=== PATIENT | male | born 1950 | race Caucasian/White ===

== ENCOUNTER 2020-09-05 01:57 | Inpatient (IN) | payer MEDICARE, OTHER, SELFPAY ==
[2020-09-05] VITALS (148 sets, daily range): BP systolic 115–146; BP diastolic 65–93; PULSE 69–173; RESP 12–49; TEMP 36.6–37.1; O2SAT 80–99; BMI 28.5
--- NOTE | 2020-09-05 02:13 | ECG_ITS ---
[facility] Test Date: 2020-09-05 Pat Name: Alisa Hyatt Department: Room: 208 Gender: Male Dispute Specialist: : 1950 Requested By: Aftab Rhoades Order Number: [id number] Mary Kate MD: Leighann Saba M.D. Measurements Intervals [place] Rate: 71 P: 28 NE: 181 QRS: -20 QRSD: 97 T: 61 QT: 381 QTc: 414 Interpretive Statements SINUS RHYTHM No previous ECG available for comparison Electronically Signed On 09-05-2020 22:12:47 GOLF SUPERINTENDENT by Leighann Saba M.D. [id number]
--- NOTE | 2020-09-05 02:13 | XR_ITS ---
WS: [id number] Exam: XR chest 1V portable [id number] Date/Time of Exam: 09/05/2020 2:15 AM Reason For Exam: sob Comparison 11/27/2008. Extensive airspace and interstitial infiltrates noted throughout both lungs. Normal cardiomediastinal structures. No pleural effusions or pneumothorax. Regional bony structures are intact. XR/XR chest 1V portable [id number] IMPRESSION: 1. Extensive bilateral pneumonia.
--- NOTE | 2020-09-05 02:16 | ED_ITS ---
HPI - COVID General: Chief Complaint: COVID symptoms Stated Complaint: SOB X 2 DAYS Time Seen by Provider: 09/05/20 02:08 Source: patient and EMS Mode of arrival: EMS Limitations: no limitations Triage information: Has fever, cough or shortness of breath . Exposure to COVID + person last 14 days History of Present Illness: HPI Narrative: 70-year-old male who states he tested positive for Covid 12 days ago. He states that he has had increasing cough along with shortness of breath. Patient called EMS and patient was 85% on room air and is currently requiring 4 L. He states he is having some chest wall pain from coughing. He denies any fevers. He states he had a slight hiccup as well. Denies any vomiting. Denies any worsening improving factors. COVID 19 common symptoms: positive productive cough and dyspnea; negative fever(s), chills, body aches, headache(s), throat pain, nausea, vomiting or diarrhea COVID 19 other sytmptoms: negative chest pain COVID Results: No Data to Display Review of Systems Const: Denies: fever(s), chills, body aches or change in appetite Eyes: Denies: blurry vision or eye discomfort ENMT: Denies: throat pain or dental pain Card: Denies: chest pain Resp: Reports: dyspnea and productive cough GI: Denies: abdominal pain, nausea, vomiting or diarrhea : Denies: dysuria Musc: Denies: neck pain or back pain Skin/Breast: Denies: rash Neuro: Denies: headache(s) Psych: Denies: depression Catarino/Lymph: Denies: easy bruising All/Imm: Denies: urticaria Physical Exam Const: COMMON NORMALS: no acute distress, patient oriented x3 and healthy appearing HENMT: COMMON NORMALS: normocephalic and atraumatic HEAD & SCALP: normocephalic and atraumatic Eye: COMMON NORMALS: Equal, round and reactive pupils present and EOMs intact bilaterally PUPIL: Yes Equal, round and reactive pupils present Neck/C-Spine: COMMON NORMALS: full ROM and supple Chest: COMMONS NORMALS: normal inspection of the chest and normal palpation of entire chest wall Resp: COMMON NORMALS: normal respiratory effort, No retractions and No use of accessory muscles AUSCULTATION: rales Cardio: COMMON NORMALS: regular rate, regular rhythm and No murmurs present (Cardio) RATE: regular rate RHYTHM: regular rhythm GI: COMMON NORMALS: Normal to inspection, nondistended, normoactive bowel sounds present, Soft to palpation, non-tender and no masses PALPATION: Yes Soft to palpation Extremity: COMMON NORMALS: normal to inspection and full ROM Neuro: COMMON NORMALS: patient oriented x3, moves all extremities and no focal motor deficits Psych: COMMON NORMALS: mental status grossly normal, Normal thought process present and cooperative THOUGHT PROCESS: Normal thought process present Skin: COMMON NORMALS: no rashes or lesions noted and no wounds GENERAL SKIN EXAM: no rashes or lesions noted Course 2 Vital Signs: Vital signs: Vital Signs Temperature 97.8 F 09/05/20 02:02 Pulse Rate 71 09/05/20 03:31 Respiratory Rate 28 H 09/05/20 03:31 Blood Pressure 115/72 09/05/20 03:31 Pulse Oximetry 94 09/05/20 03:31 MDM - COVID MDM Narrative: Medical decision making narrative: Patient presents here with COVID-19 pneumonia. X-ray shows a diffuse infiltrate. Patient is requiring oxygen here. Patient given Decadron and remdesivir down in the ER. Patient is also hyponatremic. I spoke to hospitalist and will admit to the viral ICU. Patient has been stable while in the ER. Lab Data: Labs: Lab Results 09/05/20 09/05/20 09/05/20 Range/Units 02:30 02:30 02:30 WBC 6.1 (4.0-10.0) 10^3/ uL RBC 4.35 (4.1-5.3) 10^6/u L Hgb 14.9 (11.7-16.6) g/dL Hct 40.5 L (42.0-52.0) % MCV 93.1 (80-94) fL MCH 34.3 H (28.0-34.0) pg MCHC 36.8 H (30.0-36.0) g/dL RDW 11.6 L (12.1-15.1) % Plt Count 114 L (130-400) 10^3/c mm MPV 11.6 H (7.4-10.4) fL Neut % (Auto) 87.9 % Lymph % (Auto) 7.4 % Foster % (Auto) 3.5 % Eos % (Auto) 0.3 % Baso % (Auto) 0.2 % Neut # (Auto) 5.35 (1.8-7.7) 10^3/u L Lymph # (Auto) 0.5 L (0.8-4.8) 10^3/u L Foster # (Auto) 0.2 (0.2-0.9) 10^3/u L Eos # (Auto) 0.0 (0.0-0.8) 10^3/u L Baso # (Auto) 0.0 (0.0-0.1) 10^3/u L Nucleated RBC % (a uto) 0 % Nucleated RBCs # 0.0 /100WBC D-Dimer Cancelled Specimen Type Sample Site ABG pH (7.35-7.45) ABG pCO2 (35-45) mmHg ABG pO2 (80.0-100.0) mmH g ABG HCO3 (22-26) mmol/L ABG Base Excess (-2.0-2.0) mmol/ L Dex Test Hematocrit (42-52) % O2 Delivery Device O2 Liters/Min % Cylindrical Mixer ID Sodium Cancelled Potassium Cancelled Chloride Cancelled Carbon Dioxide Cancelled Anion Gap Cancelled BUN Cancelled Creatinine Cancelled GFR Calculation Cancelled Glucose Cancelled Calculated Osmolal ity Cancelled Lactic Acid Calcium Cancelled Total Bilirubin Cancelled AST Cancelled ALT Cancelled Alkaline Phosphata se Cancelled C-Reactive Protein Cancelled NT-Pro-B Natriuret Pep Cancelled Total Protein Cancelled Albumin Cancelled Globulin Cancelled 09/05/20 09/05/20 09/05/20 Range/Units 02:30 02:43 02:43 WBC (4.0-10.0) 10^3/ uL RBC (4.1-5.3) 10^6/u L Hgb (11.7-16.6) g/dL Hct (42.0-52.0) % MCV (80-94) fL MCH (28.0-34.0) pg MCHC (30.0-36.0) g/dL RDW (12.1-15.1) % Plt Count (130-400) 10^3/c mm MPV (7.4-10.4) fL Neut % (Auto) % Lymph % (Auto) % Foster % (Auto) % Eos % (Auto) % Baso % (Auto) % Neut # (Auto) (1.8-7.7) 10^3/u L Lymph # (Auto) (0.8-4.8) 10^3/u L Foster # (Auto) (0.2-0.9) 10^3/u L Eos # (Auto) (0.0-0.8) 10^3/u L Baso # (Auto) (0.0-0.1) 10^3/u L Nucleated RBC % (a uto) % Nucleated RBCs # /100WBC D-Dimer 2.20 H Specimen Type Sample Site ABG pH (7.35-7.45) ABG pCO2 (35-45) mmHg ABG pO2 (80.0-100.0) mmH g ABG HCO3 (22-26) mmol/L ABG Base Excess (-2.0-2.0) mmol/ L Dex Test Hematocrit (42-52) % O2 Delivery Device O2 Liters/Min % Cylindrical Mixer ID Sodium 117 L* Potassium 4.5 Chloride 88 L Carbon Dioxide 20 L Anion Gap 13.5 BUN 20 Creatinine 0.9 GFR Calculation 83.4 L Glucose 86 Calculated Osmolal ity 246 L Lactic Acid Cancelled Calcium 7.4 L Total Bilirubin 0.6 AST 41 H ALT 19 Alkaline Phosphata se 53 C-Reactive Protein 178.7 H NT-Pro-B Natriuret Pep 177 H Total Protein 5.4 L Albumin 2.8 L Globulin 2.6 09/05/20 09/05/20 Range/Units 02:43 03:11 WBC (4.0-10.0) 10^3/ uL RBC (4.1-5.3) 10^6/u L Hgb (11.7-16.6) g/dL Hct (42.0-52.0) % MCV (80-94) fL MCH (28.0-34.0) pg MCHC (30.0-36.0) g/dL RDW (12.1-15.1) % Plt Count (130-400) 10^3/c mm MPV (7.4-10.4) fL Neut % (Auto) % Lymph % (Auto) % Foster % (Auto) % Eos % (Auto) % Baso % (Auto) % Neut # (Auto) (1.8-7.7) 10^3/u L Lymph # (Auto) (0.8-4.8) 10^3/u L Foster # (Auto) (0.2-0.9) 10^3/u L Eos # (Auto) (0.0-0.8) 10^3/u L Baso # (Auto) (0.0-0.1) 10^3/u L Nucleated RBC % (a uto) % Nucleated RBCs # /100WBC D-Dimer Specimen Type Arterial Sample Site Brachial, left ABG pH 7.44 (7.35-7.45) ABG pCO2 27.2 L (35-45) mmHg ABG pO2 59.1 L (80.0-100.0) mmH g ABG HCO3 18.6 L (22-26) mmol/L ABG Base Excess -4.0 L (-2.0-2.0) mmol/ L Dex Test N/a Hematocrit 44.1 (42-52) % O2 Delivery Device Nc O2 Liters/Min 4.0 % Cylindrical Mixer ID Harkr Sodium Potassium Chloride Carbon Dioxide Anion Gap BUN Creatinine GFR Calculation Glucose Calculated Osmolal ity Lactic Acid 0.9 Calcium Total Bilirubin AST ALT Alkaline Phosphata se C-Reactive Protein NT-Pro-B Natriuret Pep Total Protein Albumin Globulin Imaging Data: CXR: Attestation: I personally reviewed and interpreted this imaging study as follows: My impression: Diffuse bilateral infiltrates consistent with COVID-19 EKG Data: EKG 1: Attestation: I personally reviewed and interpreted this EKG as follows: EKG interpretation date: 09/05/20 EKG interpretation time: 02:27 Interpretation: nsr hr [address] or t wave abnormalitieis qrs 97 qtc 403 COVID Results: No Data to Display Critical Care Time Critical Care Time: Critical Care Time: Yes Total Critical Care Time: 35 Attestation: This case had a high probability of a clinically significant, sudden, or life threatening deterioration of this patient's condition which required my full and direct attention, intervention and personal management. Discharge Plan Discharge Patient Disposition: Admitted As Inpatient Clinical Impression: Pneumonia due to 2019-nCoV, Hyponatremia Condition: Stable Coding Level of Care Code ED Finish Machine Tender for Chg Fwd Exam Comprehensive
[2020-09-05] MEDS: dexamethasone 4 mg/mL INJ 10 MG IVP (02:20)
[2020-09-05] MEDS: albuterol 8 gm MDI 2 PUFF INHALATION (02:25)
[2020-09-05] MEDS: metoclopramide 5 mg/mL SDV 2 mL IVP (02:25)
[2020-09-05] MEDS: diphenhydrAMINE 50 mg/mL SDV 1mL 25 MG IVP (02:30)
[2020-09-05 02:44] LABS: Basophils % 0.2 %; Eosinophils % 0.3 %; Hematocrit 40.5 % (42.0-52.0); Hemoglobin 14.9 g/dL (11.7-16.6); Lymphocytes # 0.5 10^3/uL (0.8-4.8); Lymphocytes % 7.4 %; Mean Corpuscular HGB Conc 36.8 g/dL (30.0-36.0); Mean Corpuscular Hemoglobin 34.3 pg (28.0-34.0); Mean Corpuscular Volume 93.1 fL (80-94); Mean Platelet Volume 11.6 fL (7.4-10.4); Monocytes # 0.2 10^3/uL (0.2-0.9); Monocytes % 3.5 %; Neutrophils # 5.35 10^3/uL (1.8-7.7); Neutrophils % 87.9 %; Nucleated Red Blood Cells % 0 %; Platelet Count 114 10^3/cmm (130-400); Red Blood Count 4.35 10^6/uL (4.1-5.3); Red Cell Distribution Width 11.6 % (12.1-15.1); White Blood Count 6.1 10^3/uL (4.0-10.0)
[2020-09-05 03:22] LABS: ABG PCO2 27.2 mmHg (35-45); ABG PH Result 7.44 (7.35-7.45); Arterial Blood Gas Hematocrit 44.1 % (42-52); Blood Gas Operator Identificat HARKR; Blood Gas Sample Site Brachial, left; Blood Gas Sample Type Arterial; HCO3 ABG 18.6 mmol/L (22-26); Oxygen Device NC; PO2 ABG 59.1 mmHg (80.0-100.0)
--- NOTE | 2020-09-05 03:35 | CTR_ITS ---
PROCEDURE INFORMATION: Exam: CT Angiography Chest With Contrast Exam date and time: 09/05/2020 3:40 AM Age: 70 years old Clinical indication: Abnormal findings; Abnormal diagnostic tests; Elevated d-dimer; Cough and shortness of breath; Patient HX: Cough, SOB, and elevated d dimer. Covid + TECHNIQUE: Imaging protocol: Computed tomographic angiography of the chest with contrast. 3D rendering (Not supervised by radiologist): MIP and/or 3D reconstructed images were created by the technologist. Radiation optimization: All CT scans at this facility use at least one of these dose optimization techniques: automated exposure control; mA and/or kV adjustment per patient size (includes targeted exams where dose is matched to clinical indication); or iterative reconstruction. Contrast material: OMNI 350; Contrast volume: 77 ml; Contrast route: INTRAVENOUS (IV); COMPARISON: CR XR chest 1V portable [id number] 09/05/2020 2:14 AM RADIATION DOSE METRICS: Total DLP (mGy-cm): 572.14 FINDINGS: Pulmonary arteries: Normal. No pulmonary emboli. Aorta: Unremarkable. No aortic aneurysm. No aortic dissection. Lungs: Bilateral ground-glass infiltrates are present. Pleural spaces: Bilateral small pleural effusions are present. Heart: Unremarkable. No cardiomegaly. No pericardial effusion. Lymph nodes: Unremarkable. No enlarged lymph nodes. Bones/joints: Unremarkable. No acute fracture. Soft tissues: A small hiatal hernia is seen with features of GERD. Small cysts are seen in the liver. CT/CT angio chest PE protcl [id number] IMPRESSION: 1. Negative for pulmonary embolism. Negative for aortic aneurysm or dissection. the lung findings are consistent with COVID-19 pneumonia. 2. A small hiatal hernia is present with features of GERD. 3. Small cysts are noted in the liver. Radiation Dose CTDIVOL = (mGy): DLP = 572.14 (mGy-cm)
[2020-09-05 03:36] LABS: Lactic Sepsis W/Reflex 0.9 mmol/L (0.5-2.2)
[2020-09-05 03:40] LABS: Alanine Aminotransferase 19 U/L (0-41); Albumin Level 2.8 g/dL (3.5-5.2); Alkaline Phosphatase 53 IU/L (40-130); Anion Gap 13.5 (5-19); Aspartate Amino Transferase 41 U/L (0-40); Blood Urea Nitrogen 20 mg/dL (8-23); C Reactive Protein 178.7 mg/L (0.0-4.9); Calcium 7.4 mg/dL (8.5-10.5); Carbon Dioxide 20 mmol/L (22-29); Chloride 88 mmol/L (98-107); Globulin 2.6 g/dL (1.3-4.6); Glomerular Filtration Rate 83.4 mL/min (90-130); Glucose 86 mg/dL (65-115); NT Pro B Type Natriuretic Pept 177 pg/mL (0-125); Osmolality Calculated 246 mOsm/kg (285-295); Potassium 4.5 mmol/L (3.5-5.1); Total Bilirubin 0.6 mg/dL (0.15-1.2); Total Protein 5.4 g/dL (6.6-8.7)
[2020-09-05 03:49] LABS: Sodium 117 mmol/L (136-145)
[2020-09-05] MEDS: remdesivir 200 MG in sodium chloride 0.9% (100 ml) 100 ML 100 MG IV (03:52)
--- NOTE | 2020-09-05 03:59 | PM.HP ---
Providers/Chief Complaint Chief Complaint: SOB X 2 DAYS History of Present Illness Alisa Hyatt is a 70 year old male who presented to the hospital for chief complaint of worsening shortness of breath. Patient is stating that he contracted COVID-19 about 12 days ago, 2 days after his got sick. Initially he finished steroid regimen, and last few days his symptoms has been getting worse, he also had episodes of loose stools but just 1 day, and last 48 hours he has been spiking fever 102F, his O2 saturation was decreasing up to 80s, he did not experience any chest pain, nausea, vomiting or recent diarrhea. Patient is stating 1 week ago his blood work did not show any hyponatremia. His tremors are old he is denying recent worsening of his tremors. He takes propanolol for his tremors. No recent syncope muscle weakness vision changes or confusion. Diagnostics in the ER revealed COVID-19 pneumonia findings with high D-dimer acute hyponatremia hypoxemia requiring 5L nasal cannula to keep O2 saturation above 92% glucose 86 normal lactic acid no signs of CHF, patient looks clinically dehydrated, in the ER he has received remdesivir and Decadron first dose, CTA chest has been requested to rule out PE Review of Systems Const: Reports: fever(s), body aches, fatigue and malaise; Denies: chills Eyes: Denies: change in vision ENMT: Denies: throat pain Card: Denies: chest pain Resp: Reports: dyspnea GI: Reports: diarrhea and GI cramping : Denies: flank pain Musc: Denies: neck pain Skin/Breast: Denies: rash Neuro: Denies: headache(s) Psych: Denies: anxiety Endo: Denies: polyuria Catarino/Lymph: Denies: easy bruising All/Imm: Denies: urticaria Medications/Allergies Home Medications Medication Instructions Recorded Confirmed Last Taken Type propranolol 80 mg PO DAILY 09/05/20 09/05/20 09/04/20 08:00 History Allergies Allergy/AdvReac Type Severity Reaction Status Date / Time No Known Allergies Allergy Verified 09/05/20 02:06 PFSH Acute PFSH: Medical History Tremor Takes propranolol Surgical History No pertinent past surgical history Family History Other No pertinent family history Social History Smoking and tobacco status: never smoked Alcohol intake: never Substance/Drug Use: never Lives independently: Yes Household members: spouse Housing: House Vitals/I&O/Wt Last Vital Signs Temp 97.8 F 09/05/20 02:02 Pulse 71 09/05/20 03:31 Resp 28 H 09/05/20 03:31 BP 115/72 09/05/20 03:31 Pulse Ox 94 09/05/20 03:31 Weight last 48 hrs Weight 95.254 kg Physical Exam Narrative: EXAM NARRATIVE: Very pleasant elderly male Clinically looks dehydrated currently in semi-Dominguez position without any acute distress saturating well on 5 L nasal cannula No active chest pain or shortness of breath Expiratory crackles noted on auscultation of chest posteriorly no active wheezing S1, S2 sinus rhythm No signs of heart failure Abdomen soft, nontender bowel sound present no signs of peritonitis Lower extremity no edema Appropriate mood and affect Essential tremors Awake alert oriented x3 GCS 15 No neurological deficit does not show any sign of cellulitis or gangrene Data : 09/05/20 02:30 09/05/20 02:43 Micro: Microbiology 09/05/20 02:40 Blood Culture - Preliminary Blood SPECIMEN COLLECTED 09/05/20 02:30 Blood Culture - Preliminary Blood SPECIMEN COLLECTED A&P Assessment and plan (1) Acute respiratory failure with hypoxia: Status: Acute (2) Pneumonia due to 2019-nCoV: Status: Acute Additional A&P Information Acute hypoxic respiratory failure due to COVID-19 pneumonia Rule out PE, high D-dimer noted CTA chest requested Currently saturating well on 5 L nasal cannula No acute respite distress or use of 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 No active chest pain Continue remdesivir Decadron regimen along vitamin C and zinc, will check procalcitonin level Acute hyponatremia Patient is stating that he has not been able to drink or eat properly in last few days, he also experienced diarrhea Clinically looks dehydrated I would use normal saline with goal of 0.5 mmol improvement in sodium per hour, maximum correction goal 6 mmol per 24 hours Sodium level check every 4 hours We will check serum, urine osmolarity urine sodium level Patient is endorsing chronic tremors for which she takes propanolol he has not noticed any new neurological changes other than that Full code Regular diet DVT prophylaxis Lovenox Attestations Medical Necessity Statement*: Anticipating stay in the hospital cross more than 2 midnights continued failure to nasal cannula oxygenation to keep O2 saturation above 92% ARDS secondary to COVID-19 Time Spent in Patient Care: (>than 50% of time spent in counselling and/or direct pt care on unit). 40mins Coding Level of Care Code Acute Consumer Loan Specialist for Sho Fwd Diagnoses Acute respiratory failure with hypoxia J96.01 Pneumonia due to 2019-nCoV U07.1; J12.89
[2020-09-05] MEDS: iohexol 350 mg/mL 100 mL Btl IV (04:43)
[2020-09-05 05:24] LABS: Procalcitonin 0.22 ng/mL (0-0.5)
--- NOTE | 2020-09-05 05:28 | PC.NURSE ---
pt transported to CT enroute to the floor
[2020-09-05 05:35] LABS: Chol HDL Ratio 2.76 mg/dL (1.0-5.00); Cholesterol 105 mg/dL (0-200); HDL Cholesterol 38 mg/dL (60-100); LDL Cholesterol Calculated 49 mg/dL (50-129); LDL HDL Ratio 1.29 RATIO (0.00-3.22); Triglycerides 91 mg/dL (0-150)
[2020-09-05] MEDS: enoxaparin 40 mg/0.4 mL Syringe SUBCUT (05:50)
[2020-09-05] MEDS: sodium chloride 0.9% 1,000 ML 30 ML IV (05:51)
[2020-09-05 06:10] LABS: Thyroid Stimulating Hormone 2.59 uIU/mL (0.27-4.20)
[2020-09-05 09:00] LABS: Uric Acid 2.4 mg/dL (3.4-7.0)
[2020-09-05] MEDS: ascorbic acid 500 mg Tablet PO (09:04)
[2020-09-05] MEDS: dexamethasone 4 mg Tablet 6 MG PO (09:04)
[2020-09-05] MEDS: zinc gluconate 50 mg Tablet PO (09:04)
[2020-09-05 09:08] LABS: Sodium 118 mmol/L (136-145)
--- NOTE | 2020-09-05 09:13 | PC.SOCIAL ---
Answered call for when lab called unit this am. Karson Glez Sodium draw has been re timed to 1200, 1600, 2000, 2400 (0000). Updated pt care nurse [place]. She verbalized understanding.
[2020-09-05 10:21] LABS: Iron 25 ug/dL (59-158); Percent Saturation 14.7 % (20-50); Total Iron Binding Capacity 170 mcg/dl; Unsaturated Iron Binding 145 ug/dL (112-347)
--- NOTE | 2020-09-05 13:03 | P.PN_ITS ---
Subjective Subjective: Interval history: Admitted overnight. On examination patient lying comfortably in bed in left lateral position. Denies any nausea, vomiting, headache. Currently on 4 L saturating 92%. Feeling hungry. Concerned by cough. Vitals/I&O/Wt Last Vital Signs Temp 98.8 F 09/05/20 07:20 Pulse 72 09/05/20 11:15 Resp 17 09/05/20 11:15 BP 120/65 09/05/20 11:15 Pulse Ox 95 09/05/20 11:15 09/04/20 09/05/20 09/05/20 22:59 06:59 14:59 Intake Total 100 / 100 240 / 240 Balance 100 / 100 240 / 240 Weight last 48 hrs Weight 95.254 kg Physical Exam Narrative: EXAM NARRATIVE: Very pleasant elderly male, mildly dehydrated Chest: Expiratory crackles noted on auscultation of chest posteriorly no active wheezing Cardiovascular: S1, S2 sinus rhythm, no murmurs no gallops Abdomen: Soft, nontender bowel sound present no signs of peritonitis Lower extremity no edema Appropriate mood and affect Essential tremors Awake alert oriented x3 GCS 15 No neurological deficit does not show any sign of cellulitis or gangrene Data : 09/05/20 02:30 09/05/20 08:00 Micro: Microbiology 09/05/20 02:40 Blood Culture - Preliminary Blood SPECIMEN COLLECTED 09/05/20 02:30 Blood Culture - Preliminary Blood SPECIMEN COLLECTED A&P Assessment and plan (1) Acute respiratory failure with hypoxia: Status: Acute (2) Pneumonia due to 2019-nCoV: Status: Acute Additional A&P Information Acute hypoxic respiratory failure due to COVID-19 pneumonia: Mild to moderate disease. Patient requiring up to 4 L of oxygen supplementation keeping saturation over 90%. Continue to wean. Continue with antiviral treatment with remdesivir. Dexamethasone 6 mg daily. Vitamin C, zinc. Advair, Spiriva. Tessalon Perles. D-dimer elevated but active PE ruled out with CTA PE protocol. Given patient r equiring oxygen supplementation will start patient on Eliquis 5 mg twice daily for now. Patient will most likely require Eliquis for at least 14 days post discharge. Low chances of superadded bacterial infection. No leukocytosis, negative procalcitonin. For now start patient on oral azithromycin and check urine Legionella, bacterial antigen, MRSA swab. Will broaden the coverage of patient worsens or has a spike of fever with worsening leukocytosis. Aggressive pulmonary toilet with incentive spirometry and flutter valve. Acute hyponatremia: Most likely secondary dehydration. Check urinalysis, random urine lites. Normal saline 50 cc/h. Sodium improved to 118. We will continue to monitor every 6 hours for now with maximum correction of 6-10 mmol per 24 hours for now. 1 g oral salt tablets twice daily Full code Regular diet Eliquis will also help with DVT prophylaxis. Attestations Medical Necessity Statement*: Requires further hospitalization for management of hypoxic respiratory failure because of COVID-19 pneumonia, acute hyponatremia Time Spent in Patient Care: Greater than 35 minutes (>than 50% of time spent in counselling and/or direct pt care on unit) . Coding Level of Care Code Acute Receivable Manager for Sho Quevedo Diagnoses Acute respiratory failure with hypoxia J96.01 Pneumonia due to 2019-nCoV U07.1; J12.89
[2020-09-05] MEDS: azithromycin 250 mg Tablet 500 MG PO (13:45)
[2020-09-05 14:46] LABS: Urine Appearance Clear (CLEAR); Urine Color Yellow (Yellow); pH Urine 5 (5-7)
[2020-09-05 14:47] LABS: Bacteria Urine TRACE /hpf; Bilirubin Urine Neg (Negative); Blood Urine Neg (Negative); Glucose Urine UA Norm (Normal); Ketones Urine 2+ (Negative); Leukocyte Esterase Urine Negative (Negative); Mucus Urine TRACE /hpf; Nitrate Urine Negative (Negative); Protein Urine Trace (Negative); RBC Urine 0-4 /hpf (0-2); Squamous Epithelial Cell Urine 0-4 /hpf (0-5); Urobilinogen Urine Norm (Negative); WBC Urine 0-4 /hpf (0-5)
[2020-09-05 15:15] LABS: Potassium, Radom Urine 57 mmol/L; Urine Random Chloride 21 mmol/L; Urine Random Sodium 36 mmol/L
[2020-09-05] MEDS: benzonatate 100 mg Capsule PO ×2 (15:32→20:42)
[2020-09-05 16:41] LABS: Sodium 117 mmol/L (136-145)
[2020-09-05] MEDS: apixaban 5 mg Tablet PO (17:34)
[2020-09-05] MEDS: ferrous gluconate 324 mg Tablet PO (17:34)
[2020-09-05] MEDS: sodium chloride 1 gm Tablet PO (17:34)
[2020-09-05] MEDS: ondansetron 2 mg/ML SDV 2 mL 4 MG IVP (18:22)
[2020-09-05 21:38] LABS: Sodium 117 mmol/L (136-145)
[2020-09-06] VITALS (18 sets, daily range): BP systolic 136–144; BP diastolic 80–93; PULSE 69–93; RESP 18–25; TEMP 36.7–37.2; O2SAT 82–96
[2020-09-06 05:04] LABS: Hematocrit 36.3 % (42.0-52.0); Hemoglobin 13.5 g/dL (11.7-16.6); Lymphocytes # 0.3 10^3/uL (0.8-4.8); Lymphocytes % 5.3 %; Mean Corpuscular HGB Conc 37.2 g/dL (30.0-36.0); Mean Corpuscular Hemoglobin 33.9 pg (28.0-34.0); Mean Corpuscular Volume 91.2 fL (80-94); Mean Platelet Volume 10.2 fL (7.4-10.4); Monocytes # 0.3 10^3/uL (0.2-0.9); Monocytes % 5.1 %; Neutrophils # 5.73 10^3/uL (1.8-7.7); Neutrophils % 89.1 %; Nucleated Red Blood Cells % 0 %; Platelet Count 138 10^3/cmm (130-400); Red Blood Count 3.98 10^6/uL (4.1-5.3); Red Cell Distribution Width 11.5 % (12.1-15.1); White Blood Count 6.4 10^3/uL (4.0-10.0)
[2020-09-06] MEDS: sodium chloride 0.9% 1,000 ML 30 ML IV (05:11)
[2020-09-06] MEDS: remdesivir 100 MG in sodium chloride 0.9% (100 ml) 100 ML IV (05:13)
[2020-09-06 05:21] LABS: C Reactive Protein 127.7 mg/L (0.0-4.9)
[2020-09-06 05:28] LABS: Creatine Phosphokinase 312 U/L (39-308); Lactate Dehydrogenase 571 U/L (135-225); NT Pro B Type Natriuretic Pept 209 pg/mL (0-125)
[2020-09-06 05:36] LABS: Sodium 119 mmol/L (136-145)
[2020-09-06 05:52] LABS: Fibrinogen 577 mg/dL (174-498)
[2020-09-06 05:55] LABS: D Dimer 1.55 ug/mIFEU (0-0.59)
--- NOTE | 2020-09-06 06:00 | XRR_ITS ---
PROCEDURE INFORMATION: Exam: XR Chest, 1 View Exam date and time: 09/06/2020 12:00 AM Age: 70 years old Clinical indication: Shortness of breath; Additional info: Covid TECHNIQUE: Imaging protocol: XR of the chest Views: 1 view. COMPARISON: CR XR chest 1V portable [id number] 09/05/2020 2:14 AM FINDINGS: Lungs: Hazy bilateral interstitial pulmonary infiltrates are present. These have significantly improved since the previous chest x-ray from 09/05/2020. Pleural spaces: Unremarkable. No pleural effusion. No pneumothorax. Heart/Mediastinum: Unremarkable. No cardiomegaly. Bones/joints: Unremarkable. XR/XR chest 1V portable [id number] IMPRESSION: Bilateral hazy interstitial pulmonary infiltrates are present. They have significantly improved since previous chest x-ray.
[2020-09-06 07:00] LABS: Ferritin 4410 ng/mL (30-400)
[2020-09-06] MEDS: zinc gluconate 50 mg Tablet PO (10:30)
[2020-09-06] MEDS: benzonatate 100 mg Capsule PO ×3 (10:30→21:42)
[2020-09-06] MEDS: ascorbic acid 500 mg Tablet PO (10:30)
[2020-09-06] MEDS: ferrous gluconate 324 mg Tablet PO ×2 (10:31→18:03)
[2020-09-06] MEDS: apixaban 5 mg Tablet PO ×2 (10:31→18:03)
[2020-09-06] MEDS: sodium chloride 1 gm Tablet PO ×2 (10:31→18:03)
[2020-09-06] MEDS: azithromycin 250 mg Tablet 500 MG PO (10:31)
[2020-09-06 10:48] LABS: Sodium 120 mmol/L (136-145)
--- NOTE | 2020-09-06 11:21 | USCV_ITS ---
Alisa Hyatt Age: 70 Gender: M : 1950 Exam Date: 09/06/2020 12:46 Ordering Phys: Guillermo Dolan MD Technologist: Ashley Lopez Exam Location: [facility] [place] Indication: EF, COVID BP: 144 / 93 HR: 77 Rhythm: Sinus Technical Quality: MEASUREMENTS (Male / Female) Normal Values 2D ECHO LV Diastolic Diameter PLAX 4.9 cm 4.2 - 5.9 / 3.9 - 5.3 cm LV Systolic Diameter PLAX 2.5 cm LV Chamber Size 4.3 cm IVS Diastolic Thickness 1.7 cm 0.6 - 1.0 / 0.6 - 0.9 cm IVS Systolic Thickness 2.0 cm LVPW Diastolic Thickness 1.3 cm 0.6 - 1.0 / 0.6 - 0.9 cm LVPW Systolic Thickness 1.3 cm RV Chamber Size 2.4 cm LVOT Diameter 2.0 cm LV Ejection Fraction 2D Teich 79.9 % LV Ejection Fraction MOD 2C 68.5 % LV Ejection Fraction 2C AL 69.5 % LA Diameter 2.5 cm LA Width 3.1 cm LA Height 5.0 cm RA Width 2.3 cm RA Height 4.3 cm Aorta at Sinotubular Diameter 3.1 cm M-MODE LV Diastolic Diameter MM 6.5 cm 4.2 - 5.9 / 3.9 - 5.3 cm LV Systolic Diameter MM 3.9 cm LV Ejection Fraction MM Teich 69.5 % IVS Diastolic Thickness MM 1.0 cm 0.6 - 1.0 / 0.6 - 0.9 cm IVS Systolic Thickness MM 1.9 cm LVPW Diastolic Thickness MM 1.4 cm 0.6 - 1.0 / 0.6 - 0.9 cm LVPW Systolic Thickness MM 1.5 cm RV Diastolic Diameter MM 1.0 cm Aortic Annulus Diameter 4.1 cm LA Ao Ratio MM 0.7 MV E Point Septal Separation 0.5 cm DOPPLER AV Peak Velocity 141.0 cm/s LVOT Peak Velocity 109.0 cm/s AV Area Cont Eq vti 3.6 cm squared AV Area Cont Eq pk 2.4 cm squared MV Area PHT 4.0 cm squared Mitral E to A Ratio 0.7 MV E' Velocity 39.5 cm/s Mitral E to MV E' Ratio 7.8 Mitral E to LV E' Lateral Ratio 6.8 Mitral E to LV E' Septal Ratio 9.3 TR Peak Velocity 273.0 cm/s TR Peak Gradient 29.8 mmHg TV Peak E Velocity 62.0 cm/s Right Atrial Pressure 3.0 mmHg Pulmonary Artery Systolic Pressu 32.8 mmHg PV Peak Velocity 97.0 cm/s RV Acceleration Time 0.1 s RV Ejection Time 0.3 s RV AcT/ET 0.2 FINDINGS Left Ventricle Normal left ventricular size and systolic function with no regional wall motion abnormalities. LV EF is 60 to 65%. Grade 1 diastolic dysfunction is seen. Right Ventricle The right ventricle is normal in size and function. Right Atrium The right atrium is normal in size. Left Atrium The left atrium is normal in size. An echogenic structure seen in left atrium. Visualized only in apical views. This could represent artifact versus a mass. Mitral Valve Structurally normal mitral valve without significant stenosis or prolapse. There is trace mitral regurgitation. Aortic Valve Structurally normal aortic valve without significant sclerosis or stenosis. There is mild aortic regurgitation. Tricuspid Valve Structurally normal tricuspid valve without significant stenosis. Trace tricuspid regurgitation is seen. Insufficient TR jet to calculate RVSP. Pulmonic Valve Structurally normal pulmonic valve without significant stenosis. There is trace pulmonic regurgitation. Pericardium Normal pericardium without effusion. Aorta Normal ascending aorta dimension. CONCLUSIONS LV systolic function is normal with EF of 60 to 65%. Grade 1 diastolic dysfunction is seen. An echogenic structure is seen in the left atrium. It is visualized only in the apical views. This could represent artifact versus a mass. Will recommend transesophageal echocardiogram to rule out left atrial mass. Trace mitral regurgitation, mild aortic regurgitation and trace tricuspid regurgitation seen. Trace pulmonic regurgitation is also present. No comparison studies are available. Indio Cedeno MD (Electronically Signed) Final Date: 06 September 2020 17:51 S
--- NOTE | 2020-09-06 11:23 | P.PN_ITS ---
Subjective Subjective: Interval history: No acute events overnight. On examination patient lying comfortably in bed in left lateral position. States his energy levels are appropriate but complains of mental fogginess. States appetite is not good. Denies any nausea, vomiting, headache but is concerned with hiccups which he gets after taking oral dexamethasone. Denies any increased shortness of breath. Currently on 5 L nasal cannula saturating 94%. Working regularly with incentive spirometry and Acapella by himself. Vitals/I&O/Wt Last Vital Signs Temp 98.1 F 09/06/20 08:44 Pulse 78 09/06/20 08:41 Resp 24 H 09/06/20 08:41 BP 144/93 09/06/20 08:41 Pulse Ox 82 L 09/06/20 08:41 09/05/20 09/06/20 09/06/20 22:59 06:59 14:59 Intake Total 720 / 1560 1100 / 2660 540 / 540 Output Total 1000 / 1000 Balance -280 / 560 1100 / 1660 540 / 540 Weight last 48 hrs Weight 95.254 kg Physical Exam Narrative: EXAM NARRATIVE: Very pleasant elderly male, mildly dehydrated Chest: Expiratory crackles noted on auscultation of chest posteriorly no active wheezing Cardiovascular: S1, S2 sinus rhythm, no murmurs no gallops Abdomen: Soft, nontender bowel sound present no signs of peritonitis Lower extremity no edema Appropriate mood and affect Essential tremors Awake alert oriented x3 GCS 15 No neurological deficit does not show any sign of cellulitis or gangrene Data : 09/06/20 04:30 09/06/20 14:46 Micro: Microbiology 09/05/20 02:40 Blood Culture - Preliminary Blood NEGATIVE TO DATE 09/05/20 02:30 Blood Culture - Preliminary Blood NEGATIVE TO DATE 09/05/20 14:15 Legionella Urinary Antigen - Final Urine,Voided 09/05/20 14:15 Bacterial Antigens - Final Urine,Voided A&P Assessment and plan (1) Acute respiratory failure with hypoxia: Status: Acute (2) Pneumonia due to 2019-nCoV: Status: Acute Additional A&P Information Acute hypoxic respiratory failure due to COVID-19 pneumonia: Mild to moderate disease. Continue oxygen supplementation keeping saturation over 90%. Continue with antiviral treatment with remdesivir to finish a 5-day course. Dexamethasone 6 mg daily. Vitamin C, zinc. Advair, Spiriva. Tessalon Perles. D-dimer elevated but active PE ruled out with CTA PE protocol. Given patient requiring oxygen supplementation will start patient on Eliquis 5 mg twice daily for now. Patient will most likely require Eliquis for at least 14 days post discharge. Continue to monitor inflammatory markers serially including LDH, CPK, ferritin, D-dimer, CRP. Low chances of superadded bacterial infection. No leukocytosis, negative procalcitonin. MRSA swab awaited, urine Legionella and bacterial antigen negative. Will broaden the coverage of patient worsens or has a spike of fever with worsening leukocytosis. Aggressive pulmonary toilet with incentive spirometry and flutter valve. Acute hyponatremia: Urine lites appreciated. TSH, HbA1c, lipid panel results appreciated. Serum osmolarity 250 with urine sodium of 36. Stop IV fluids and start patient on fluid restriction up to 1800 cc. Continue 1 g oral salt tablets. Continue to monitor sodium levels every 6 hours for now. Hypertension: Goal blood pressure less than 140/90 mmHg. Continue to monitor blood pressures. Blood pressure at goal for now. Iron panel consistent with several iron deficiency anemia. Continue with oral iron supplementation for now. Full code Regular diet Eliquis will also help with DVT prophylaxis. Attestations Medical Necessity Statement*: Patient requires further hospitalization for management of hypoxic respiratory failure due to COVID-19 pneumonia and acute h yponatremia. Time Spent in Patient Care: Greater than 35 minutes (>than 50% of time spent in counselling and/or direct pt care on unit) . Coding Level of Care Code Acute Coverstitch Binder for Sho Quevedo Diagnoses Acute respiratory failure with hypoxia J96.01 Pneumonia due to 2019-nCoV U07.1; J12.89
[2020-09-06 11:51] LABS: Alanine Aminotransferase 21 U/L (0-41); Albumin Level 3.1 g/dL (3.5-5.2); Alkaline Phosphatase 61 IU/L (40-130); Aspartate Amino Transferase 52 U/L (0-40); Blood Urea Nitrogen 17 mg/dL (8-23); Calcium 7.4 mg/dL (8.5-10.5); Carbon Dioxide 20 mmol/L (22-29); Chloride 88 mmol/L (98-107); Globulin 2.6 g/dL (1.3-4.6); Glomerular Filtration Rate 95.6 mL/min (90-130); Glucose 117 mg/dL (65-115); Osmolality Calculated 253 mOsm/kg (285-295); Sodium 120 mmol/L (136-145); Total Bilirubin 0.5 mg/dL (0.15-1.2); Total Protein 5.7 g/dL (6.6-8.7)
[2020-09-06] MEDS: dexamethasone 4 mg/mL INJ 6 MG IVP (13:32)
[2020-09-06] MEDS: famotidine 20 mg/2 mL INJ IVP (13:32)
[2020-09-06 15:30] LABS: Sodium 118 mmol/L (136-145)
[2020-09-06] MEDS: ondansetron 2 mg/ML SDV 2 mL 4 MG IVP (15:44)
[2020-09-06] MEDS: ascorbic acid 500 mg Tablet 1000 MG PO (18:03)
--- NOTE | 2020-09-06 20:18 | PC.NURSE ---
New Orders: MD Kelsi updated on pt's current O2 status. New orders for patient to be transferred inhouse from an admitted Covid Med Surg pt, to a now Covid ICU admitted patient status. New orders were given for Duonebs to become Q4HR, and Pulmicort BID. Advair and Spiriva to be discontinued. RN updated RT of new inhalation medication changes.
[2020-09-06] MEDS: budesonide 0.5 mg/2 mL Neb INHALATION (20:44)
[2020-09-06] MEDS: ipratropium-albuterol 3 mL Neb INHALATION ×2 (20:44→23:53)
--- NOTE | 2020-09-06 21:55 | CTR_ITS ---
PROCEDURE INFORMATION: Exam: CT Abdomen And Pelvis With Contrast Exam date and time: 09/06/2020 10:50 PM Age: 70 years old Clinical indication: Abdominal pain; Generalized; Patient HX: C/O abd cramping; Additional info: Abd pain TECHNIQUE: Imaging protocol: Computed tomography of the abdomen and pelvis with contrast. Radiation optimization: All CT scans at this facility use at least one of these dose optimization techniques: automated exposure control; mA and/or kV adjustment per patient size (includes targeted exams where dose is matched to clinical indication); or iterative reconstruction. Contrast material: OMNI 300; Contrast volume: 95 ml; Contrast route: INTRAVENOUS (IV); COMPARISON: No relevant prior studies available. RADIATION DOSE METRICS: Total DLP (mGy-cm): 1064.85 FINDINGS: Lungs: There is diffuse airspace density, which may represent pneumonia, pulmonary edema, or inflammatory pneumonitis such as ARDS. Pleural spaces: There are bilateral small pleural effusions. Heart: The heart is enlarged. Mediastinal space: A moderate hiatal hernia is present. Liver: There is a small quantity of perihepatic fluid. Several subcentimeter hepatic hypodensities are noted and are too small to characterize. There is a 1.7 cm cyst in the right lobe of the liver image 25. There is no common bile duct dilation. No significant cirrhotic features. Gallbladder and bile ducts: Normal. No calcified stones. No ductal dilation. Pancreas: Normal. No ductal dilation. Spleen: Normal. No splenomegaly. Adrenal glands: Normal. No mass. Kidneys and ureters: There are multiple renal hypodensities that cannot be further characterized on the current examination. There is no evidence of hydronephrosis. There is no evidence of renal calcifications. There is a 1.8 cm simple cyst in the left kidney. No follow-up is necessary. Stomach and bowel: Moderate diverticulosis is present in the distal colon. There is no evidence of intestinal perforation or obstruction. The wall of the ascending and transverse colon is thickened but collapsed. This appearance may reflect lack of distention however mild colitis cannot be excluded. Appendix: No evidence of appendicitis. Intraperitoneal space: Unremarkable. No free air. No significant fluid collection. Vasculature: The aorta demonstrates mild atherosclerotic calcification. Lymph nodes: Unremarkable.No enlarged lymph nodes. Urinary bladder: Unremarkable as visualized. Reproductive: Unremarkable as visualized. Bones/joints: Unremarkable. No acute fracture. Soft tissues: Small bilateral fat filled inguinal hernias are noted. CT/CT abdomen pelvis w con* [id number] IMPRESSION: 1. There is diffuse airspace density, which may represent pneumonia, pulmonary edema, or inflammatory pneumonitis such as ARDS. There are small pleural effusions. 2. The wall of the ascending and transverse colon is thickened but collapsed. This appearance may reflect lack of distention however mild colitis cannot be excluded. 3. There is a small amount of perihepatic fluid. Subcentimeter liver hypodensities and liver cysts are noted. COMMENTS: Consistent with the [place]'s Incidental Findings Committee white paper (J Am Negra Radiol 2018): Any incidental renal lesion less than 1 cm or classified as too small to characterize, or any incidental cystic renal lesion characterized as simple-appearing, is likely benign. No follow-up imaging is recommended for these lesions per consensus recommendations based on imaging criteria. Radiation Dose CTDIVOL = (mGy): DLP = 1064.85 (mGy-cm)
[2020-09-06] MEDS: metoclopramide 5 mg/mL SDV 2 mL 10 MG IVP (22:06)
[2020-09-06] MEDS: HYDROmorphone 1 mg/mL INJ 1 mL 0.5 MG IVP (22:06)
[2020-09-06] MEDS: lidocaine 2% viscous 15 ML, aluminum-mag hydrox-simethicon 30 ML, sucralfate oral liq 1 GM PO (23:10)
--- NOTE | 2020-09-06 23:17 | PC.NURSE ---
New orders: RN found pt in what appered to be a large amount of pain. Pt had c/o severe abdominal pain that was unaltered with position changes. Patient stated this has happened on previous occasions, and believed it to be associated with steroid medication admin. RN also around this time spoke with pt's daughter in regards to pt's medication hx. Daughter, who works as a pharmacist locally, verbalized that her father was a poor historian in terms of medication history. She also verbalized fear that IVP zofran may be the cause of some of his stomach upset and requested that RN look into it further. She based this claim off of previous upset accounts of patient taking prescribed medication of zofran and witnessed upset stomach and possible episodes of intense hiccups. This RN spoke with MD Reyes automation engineer about pt's c/o severe pain levels as well as the incidence of pt desating, and furthermore requiring increase O2 demand, in order to remain within a 85-90% range. With episodes of severe pain, RN noted pt to require titration of Highflow NC up to 15L. This information was communicated over to with RN, and new orders for a CT of the abdomen with contrast, IV pain medication, and an order for IV Reglan was given in efforts to control patient pain levels. After administration of pain medication, RN observed pt return to a 92% SPO2 status. Closely monitoring patient.
[2020-09-06 23:43] LABS: Sodium 120 mmol/L (136-145)
[2020-09-06] MEDS: iohexol 300 mg/mL 100 mL Btl IV (23:49)
[2020-09-07] VITALS (24 sets, daily range): BP systolic 113–154; BP diastolic 56–88; PULSE 70–105; RESP 12–40; TEMP 36.9–37.3; O2SAT 86–99
[2020-09-07] MEDS: famotidine 20 mg/2 mL INJ IVP ×2 (01:17→15:05)
--- NOTE | 2020-09-07 01:37 | PC.NURSE ---
New orders: MD Reyes chief controller tower updated on CT of abdomen results. New orders given for Zosyn IV Q8 hr, and for pt to become NPO now going forth.
[2020-09-07] MEDS: piperacillin-tazobactam 3.375 GM in sodium chloride 0.9% (plus) 50 ML IV ×3 (02:35→17:32)
[2020-09-07] MEDS: ipratropium-albuterol 3 mL Neb INHALATION ×6 (04:15→23:58)
[2020-09-07 04:32] LABS: D Dimer 1.67 ug/mIFEU (0-0.59)
[2020-09-07 04:39] LABS: Alanine Aminotransferase 24 U/L (0-41); Alkaline Phosphatase 60 IU/L (40-130); Blood Urea Nitrogen 16 mg/dL (8-23); C Reactive Protein 80.3 mg/L (0.0-4.9); Calcium 7.5 mg/dL (8.5-10.5); Carbon Dioxide 19 mmol/L (22-29); Chloride 92 mmol/L (98-107); Globulin 2.2 g/dL (1.3-4.6); Glomerular Filtration Rate 111.5 mL/min (90-130); Glucose 127 mg/dL (65-115); NT Pro B Type Natriuretic Pept 330 pg/mL (0-125); Osmolality Calculated 259 mOsm/kg (285-295); Sodium 123 mmol/L (136-145); Total Bilirubin 0.4 mg/dL (0.15-1.2); Total Protein 5.2 g/dL (6.6-8.7)
[2020-09-07 05:05] LABS: ABG PCO2 29.3 mmHg (35-45); ABG PH Result 7.43 (7.35-7.45); Alveolar-Arterial Oxygen Gradi 7.6 mmHg (5-10); Arterial Blood Gas Hematocrit 41.6 % (42-52); Base Excess ABG -3.8 mmol/L (-2.0-2.0); Blood Gas Allen Test Pos; Blood Gas Sample Type Arterial; Carboxyhemoglobin 0.8 %THgb (0.4-20.1); HCO3 ABG 19.3 mmol/L (22-26); HGB O2 Sat 89.1 % (95-100); Methemoglobin 0.2 % (0.4-1.5); Total Hemoglobin 13.6 g/dL (14-18)
[2020-09-07 05:06] LABS: Blood Gas Operator Identificat HARKR; Blood Gas Sample Site Radial, left; Oxygen Device NC
[2020-09-07 05:12] LABS: Anion Gap 16.7 (5-19); Aspartate Amino Transferase 54 U/L (0-40); Potassium 4.7 mmol/L (3.5-5.1)
[2020-09-07 05:53] LABS: Basophils % 0.2 %; Hematocrit 49.1 % (42.0-52.0); Hemoglobin 17.2 g/dL (11.7-16.6); Lymphocytes # 0.3 10^3/uL (0.8-4.8); Lymphocytes % 4.1 %; Mean Corpuscular Hemoglobin 33.9 pg (28.0-34.0); Mean Corpuscular Volume 96.8 fL (80-94); Mean Platelet Volume 10.9 fL (7.4-10.4); Monocytes # 0.4 10^3/uL (0.2-0.9); Monocytes % 5.9 %; Neutrophils # 5.62 10^3/uL (1.8-7.7); Neutrophils % 89.5 %; Nucleated Red Blood Cells % 0 %; Platelet Count 103 10^3/cmm (130-400); Red Blood Count 5.07 10^6/uL (4.1-5.3); Red Cell Distribution Width 12.1 % (12.1-15.1); White Blood Count 6.3 10^3/uL (4.0-10.0)
[2020-09-07] MEDS: remdesivir 100 MG in sodium chloride 0.9% (100 ml) 100 ML IV (06:01)
[2020-09-07] MEDS: HYDROmorphone 1 mg/mL INJ 1 mL 0.5 MG IVP (06:19)
[2020-09-07 06:44] LABS: Slide Review Slide Review Perform
[2020-09-07] MEDS: budesonide 0.5 mg/2 mL Neb INHALATION ×2 (08:05→20:13)
[2020-09-07] MEDS: ascorbic acid 500 mg Tablet 1000 MG PO ×2 (08:57→17:33)
[2020-09-07] MEDS: ferrous gluconate 324 mg Tablet PO ×2 (08:58→17:33)
[2020-09-07] MEDS: azithromycin 250 mg Tablet 500 MG PO (08:58)
[2020-09-07] MEDS: zinc gluconate 50 mg Tablet PO (08:58)
[2020-09-07] MEDS: apixaban 5 mg Tablet PO ×2 (08:58→17:33)
[2020-09-07] MEDS: sodium chloride 1 gm Tablet PO ×2 (08:58→17:32)
[2020-09-07] MEDS: benzonatate 100 mg Capsule PO ×3 (08:58→21:27)
[2020-09-07] MEDS: metoclopramide 5 mg/mL SDV 2 mL IVP ×2 (09:01→17:33)
[2020-09-07 10:42] LABS: Sodium 125 mmol/L (136-145)
--- NOTE | 2020-09-07 11:50 | P.PN_ITS ---
Subjective Subjective: Interval history: On examination today patient lying comfortably in bed. Overnight patient required heated high flow oxygen supplementation to maintain saturation over 90%. Currently on 35 L 60% saturating 96%. States energy levels are little better than yesterday. Denies any nausea, vomiting, headache. Concern with hiccups states better than yesterday. Vitals/I&O/Wt Last Vital Signs Temp 98.4 F 09/07/20 04:14 Pulse 75 09/07/20 11:21 Resp 16 09/07/20 11:21 BP 147/87 09/07/20 04:14 Pulse Ox 94 09/07/20 11:21 09/06/20 09/07/20 09/07/20 22:59 06:59 14:59 Intake Total 120 / 900 75 / 975 460 / 460 Output Total 1200 / 1500 1150 / 2650 500 / 500 Balance -1080 / -600 -1075 / -1675 -40 / -40 Physical Exam Narrative: EXAM NARRATIVE: Very pleasant elderly male, mildly dehydrated Chest: Expiratory crackles noted on auscultation of chest posteriorly no active wheezing Cardiovascular: S1, S2 sinus rhythm, no murmurs no gallops Abdomen: Soft, nontender bowel sound present no signs of peritonitis Lower extremity no edema Appropriate mood and affect Essential tremors Awake alert oriented x3 GCS 15 No neurological deficit does not show any sign of cellulitis or gangrene Data : 09/07/20 05:05 09/07/20 10:00 A&P Assessment and plan (1) Acute respiratory failure with hypoxia: Status: Acute (2) Pneumonia due to 2019-nCoV: Status: Acute (3) Acute hyponatremia: Status: Acute (4) Left atrial mass: Status: Acute Additional A&P Information Acute hypoxic respiratory failure due to COVID-19 pneumonia: Moderate disease. Currently patient requiring more oxygen supplementation than yesterday. We will continue to monitor. Continue with antiviral treatment with remdesivir to finish a 5-day course. Dexamethasone 6 mg IV daily. Vitamin C, zinc. Advair, Spiriva. Tessalon Perles. D-dimer elevated but active PE ruled out with CTA PE protocol. Given patient requiring oxygen supplementation will start patient on Eliquis 5 mg twice daily for now. Patient will most likely require Eliquis as an outpatient till LA thrombus has been ruled out by MARISABEL. Continue to monitor inflammatory markers serially including LDH, CPK, ferritin, D-dimer, CRP. D-dimer resolving, CRP resolving. Echocardiogram results shows normal EF with grade 1 diastolic dysfunction. Given worsening hypoxic respiratory failure we will try to keep patient on the negative side. Patient currently 2 L negative in last 24 hours and euvolemic since admission. We will continue to monitor. Strict input output charting, daily weights. Low chances of superadded bacterial infection. No leukocytosis, negative procalcitonin. MRSA swab awaited, urine Legionella and bacterial antigen negative. But as patient is requiring higher oxygen supplementation currently we will continue with Zosyn and azithromycin. Aggressive pulmonary toilet with incentive spirometry and flutter valve. Discussed in detail with patient regarding proning or at least semiproning when possible. Acute hyponatremia: Improving. 125 today morning. Urine lites appreciated. TSH, HbA1c, lipid panel results appreciated. Serum osmolarity 250 with urine sodium of 36. Continue fluid restriction up to 1800 cc. Continue 1 g oral salt tablets. Continue to monitor sodium levels every 6 hours for now. Hypertension: Goal blood pressure less than 140/90 mmHg. Continue to monitor blood pressures. Blood pressure at goal for now of medications. Left atrial mass: ?mass ?artifact ? thrombus as per the TTE. MARISABEL is recommended as per cardiology. Patient does not have any valvular abnormality or systolic or diastolic dysfunction. Patient is already on full dose anticoagulation because of COVID-19 pneumonia. Discussed that the finding in detail with patient's daughter. Discussed that most likely patient will require a MARISABEL to confirm the diagnosis but as patient is already on full dose anticoagulation and possible mass is not causing any valvular abnormality or changes in ejection fraction we can hold off for now and MARISABEL can be done as an as an outpatient once patient is more stabilized from respiratory point of view. Patient daughter verbalized understanding. Iron panel consistent with several iron deficiency anemia. Continue with oral iron supplementation for now. Full code Regular diet Eliquis will also help with DVT prophylaxis. Attestations Medical Necessity Statement*: Requires further hospitalization for management of acute hypoxic respiratory failure from COVID-19 pneumonia, acute hyponatremia and for further evaluation of possible left atrial mass Time Spent in Patient Care: Greater than 35 minutes (>than 50% of time spent in counselling and/or direct pt care on unit) . Coding Level of Care Code Acute Gunnery/Ordnance Officer for Sho Quevedo Diagnoses Acute respiratory failure with hypoxia J96.01 Pneumonia due to 2019-nCoV U07.1; J12.89 Acute hyponatremia E87.1 Left atrial mass I51.89
[2020-09-07] MEDS: dexamethasone 4 mg/mL INJ 6 MG IVP (15:06)
[2020-09-07] MEDS: LORazepam 2 mg/mL INJ 1 mL 0.5 MG IVP (15:06)
[2020-09-07 16:41] LABS: Sodium 126 mmol/L (136-145)
[2020-09-08] VITALS (26 sets, daily range): BP systolic 108–163; BP diastolic 74–99; PULSE 75–122; RESP 14–45; TEMP 36.5–37.3; O2SAT 80–98; BMI 29.1
[2020-09-08 00:21] LABS: Sodium 125 mmol/L (136-145)
[2020-09-08] MEDS: metoclopramide 5 mg/mL SDV 2 mL IVP ×3 (01:55→17:49)
[2020-09-08] MEDS: famotidine 20 mg/2 mL INJ IVP ×2 (02:02→14:42)
[2020-09-08] MEDS: piperacillin-tazobactam 3.375 GM in sodium chloride 0.9% (plus) 50 ML IV ×3 (02:02→17:48)
[2020-09-08] MEDS: sodium chloride 0.9% 100 mL Bag 50 ML IV (02:02)
[2020-09-08] MEDS: HYDROmorphone 1 mg/mL INJ 1 mL 0.5 MG IVP (02:27)
[2020-09-08] MEDS: ipratropium-albuterol 3 mL Neb INHALATION ×6 (03:36→23:12)
[2020-09-08] MEDS: remdesivir 100 MG in sodium chloride 0.9% (100 ml) 100 ML IV (05:02)
--- NOTE | 2020-09-08 06:00 | XR_ITS ---
WS: [id number] PORTABLE CHEST HISTORY: covid COMPARISON: 09/06/2020 Increase in the interstitial thickening and reticulation throughout both lungs. No dense areas of con solidation. No pleural effusion or pneumothorax. Cardiac size: Normal. Mediastinum/Aorta: Normal mediastinum. No osseous abnormality seen. XR/XR chest 1V portable [id number] IMPRESSION: Progression of interstitial thickening and reticulation since the prior study. Likely due to superimposed acute pneumonitis.
[2020-09-08 06:23] LABS: Hematocrit 33.6 % (42.0-52.0); Hemoglobin 12.1 g/dL (11.7-16.6); Lymphocytes # 0.2 10^3/uL (0.8-4.8); Lymphocytes % 1.9 %; Mean Corpuscular Volume 94.4 fL (80-94); Mean Platelet Volume 10.2 fL (7.4-10.4); Monocytes # 0.3 10^3/uL (0.2-0.9); Monocytes % 3.2 %; Neutrophils # 7.39 10^3/uL (1.8-7.7); Neutrophils % 94.5 %; Nucleated Red Blood Cells % 0 %; Platelet Count 134 10^3/cmm (130-400); Red Blood Count 3.56 10^6/uL (4.1-5.3); White Blood Count 7.8 10^3/uL (4.0-10.0)
[2020-09-08 07:03] LABS: D Dimer 10.79 ug/mIFEU (0-0.59)
[2020-09-08 07:04] LABS: NT Pro B Type Natriuretic Pept 501 pg/mL (0-125)
[2020-09-08 07:23] LABS: Ferritin 3360 ng/mL (30-400)
[2020-09-08] MEDS: budesonide 0.5 mg/2 mL Neb INHALATION ×2 (08:35→20:05)
[2020-09-08 08:40] LABS: Alanine Aminotransferase 26 U/L (0-41); Albumin Level 3.2 g/dL (3.5-5.2); Alkaline Phosphatase 68 IU/L (40-130); Anion Gap 12.7 (5-19); Aspartate Amino Transferase 50 U/L (0-40); Blood Urea Nitrogen 13 mg/dL (8-23); Calcium 7.6 mg/dL (8.5-10.5); Carbon Dioxide 21 mmol/L (22-29); Chloride 99 mmol/L (98-107); Globulin 2.5 g/dL (1.3-4.6); Glomerular Filtration Rate 95.6 mL/min (90-130); Glucose 139 mg/dL (65-115); Osmolality Calculated 270 mOsm/kg (285-295); Potassium 3.7 mmol/L (3.5-5.1); Sodium 129 mmol/L (136-145); Total Bilirubin 0.7 mg/dL (0.15-1.2); Total Protein 5.7 g/dL (6.6-8.7)
[2020-09-08] MEDS: benzonatate 100 mg Capsule PO ×2 (08:41→17:48)
[2020-09-08] MEDS: ferrous gluconate 324 mg Tablet PO ×2 (08:41→17:47)
[2020-09-08] MEDS: ascorbic acid 500 mg Tablet 1000 MG PO ×2 (08:41→17:47)
[2020-09-08] MEDS: sodium chloride 1 gm Tablet PO (08:41)
[2020-09-08] MEDS: azithromycin 250 mg Tablet 500 MG PO (08:41)
[2020-09-08] MEDS: apixaban 5 mg Tablet PO (08:41)
[2020-09-08] MEDS: zinc gluconate 50 mg Tablet PO (08:41)
[2020-09-08] MEDS: LORazepam 2 mg/mL INJ 1 mL 0.5 MG IVP (10:04)
[2020-09-08] MEDS: ondansetron 2 mg/ML SDV 2 mL 4 MG IVP (10:05)
--- NOTE | 2020-09-08 10:52 | ECG_ITS ---
[facility] ED Test Date: 2020-09-08 Pat Name: Alisa Hyatt Department: Room: 205 Gender: Male Counselor Aid: : 1950 Requested By: Nikita Barber Order Number: [id number] Mary Kate MD: Leighann Saba M.D. Measurements Intervals [place] Rate: 103 P: 34 TN: 156 QRS: -16 QRSD: 89 T: 44 QT: 340 QTc: 447 Interpretive Statements SINUS TACHYCARDIA LOW QRS VOLTAGE IN PRECORDIAL LEADS [QRS DEFLECTION < 1.0 mV IN CHEST LEADS] NONSPECIFIC ST & T-WAVE ABNORMALITY Compared to ECG 09/05/2020 02:27:38 Low QRS voltage now present T-wave abnormality now present Sinus rhythm no longer present Electronically Signed On 09-11-2020 20:26:03 DIRECTOR OF HOME ECONOMICS by Leighann Saba M.D. [id number]
--- NOTE | 2020-09-08 11:15 | DCPLANNER ---
Called pt's , Lalitha and IMM completed 09/08/20 @ 1111. Copy of rights placed in pt file.
[2020-09-08] MEDS: FUROsemide 10 mg/mL SDV 2mL 20 MG IVP ×2 (11:19→20:27)
[2020-09-08 12:21] LABS: Troponin(5th) Baseline 183 ng/L (0-15)
--- NOTE | 2020-09-08 13:30 | PC.NURSE ---
PT UNABLE TO MAINTAIN O2 SATS ON HEATED HIGH FLOW NC. DR ESPARZA HERE TO EVAL PT, NEW ORDERS RECEIVED & IMPLEMENTED. LABS DRAWN, LABELED & TRANSPORTED TO LAB. DAUGHTER AT BEDSIDE ALONG WITH DR RING. SEVERAL ATTEMPTS MADE AT STARTING AN IV BUT D/T PT TREMORS TO BUE UNABLE TO MAINTAIN STICK AFTER FLASH. ENOUGH BLOOD COLLECTED FOR TROPONIN. PT CONFUSED & HALLUCINATING AT TIMES. IS ABLE TO REPORT THAT HE IS IN [facility]. SITTER AT BEDSIDE D/T PT WAS UP AT BEDSIDE WHEN LEFT ALONE IN ROOM WITH BIPAP PULLED OFF.
[2020-09-08] MEDS: dexamethasone 4 mg/mL INJ 6 MG IVP (14:41)
[2020-09-08 14:44] LABS: Troponin 5 2HR 236.6 ng/L (0-15); Troponin 5 2HR Delta 53.6 ABS# (0-10)
--- NOTE | 2020-09-08 15:26 | PM.PN ---
Subjective Subjective: Interval history: Today he is requiring more oxygen on high flow cannula, up to 75% FiO2 requirement. He is somewhat confused during my visit in the early afternoon, he knows the year is 2020, he denies any discomfort, the same time he thinks he is at home, tried getting up from bed. Thought he could take off his CPAP mask. He was repositioned in bed, reoriented, and counseled to take slow breaths. Saturation return to low to mid 90s. He denies any chest pain or pressure. He has been having some cramping discomfort in his abdomen. He gets anxious and restless fairly easily. Vitals/I&O/Wt Last Vital Signs Temp 98.2 F 09/08/20 14:00 Pulse 122 H 09/08/20 14:00 Resp 32 H 09/08/20 14:00 BP 141/91 09/08/20 14:00 Pulse Ox 96 09/08/20 14:00 09/08/20 09/08/20 09/08/20 06:59 14:59 22:59 Intake Total 411 / 1286 770 / 770 Output Total 450 / 2000 1500 / 1500 Balance -39 / -714 -730 / -730 Weight last 48 hrs Weight 97.522 kg Physical Exam Const: COMMON NORMALS: no acute distress GENERAL APPEARANCE: anxious ORIENTATION/CONSCIOUSNESS: Yes awake, Yes oriented to person and Yes oriented to time; not oriented to place HENMT: COMMON NORMALS: oropharynx normal Neck/C-Spine: COMMON NORMALS: no JVD Resp: COMMON NORMALS: normal respiratory effort AUSCULTATION: crackles (Minimal crackles at bases.) Cardio: COMMON NORMALS: no JVD, regular rhythm, S1 normal heart sound present, S2 normal heart sound present and No murmurs present (Cardio) RHYTHM: regular rhythm HEART SOUNDS: S1 normal heart sound present and S2 normal heart sound present GI: COMMON NORMALS: Normal to inspection, nondistended, normoactive bowel sounds present, Soft to palpation and non-tender PALPATION: Yes Soft to palpation Extremity: COMMON NORMALS: no joint enlargement and no pedal edema Neuro: COMMON NORMALS: moves all extremities SENSORIUM/ORIENTATION: Yes oriented to person, No oriented to place and Yes oriented to time Skin: COMMON NORMALS: no rashes or lesions noted GENERAL SKIN EXAM: no rashes or lesions noted Urinary Catheter Management^: Ivory: Cath Placed During This Visit: yes Urinary Catheter Date of Insertion: 09/08/20 Urinary Catheter Time of Insertion: 11:48 Data : 09/08/20 05:15 09/08/20 05:15 A&P Assessment and plan (1) Acute respiratory failure with hypoxia: Increased FiO2 requirement this morning up to 75%. With noted crackles on exam, he received Lasix, was transitioned also to CPAP temporarily, with improvement in his oxygenation, requirement down to 50% FiO2, although did not tolerate this very well, intermittently taking off the mask. One-to-one sitter has been requested for him. We discussed with his daughter and regarding additional therapeutic pathways going forward. It appears that he had again gotten Zofran today. The concern is whether this medication may be worsening his hypoxia with this being reported adverse effect in about 10% of patients. Zofran discontinued. This is added also as on his allergies to avoid additional doses. We discussed also with his and daughter regarding x-ray from this morning showing progression of interstitial findings. He did appear to respond well to Lasix, diuresing well. Maintain blood pressure. Monitor I&O. Renal function. Unfortunately with difficulties with maintaining CPAP, for now switched back to high flow cannula and appears to be doing well, however, they understand that he may worsen again. They would like to give some time for Zofran to wear off before making additional decisions regarding more invasive treatment if possible due to concern of Zofran contributed to hypoxia. We did request one-to-one sitter for him to help reorient him, help maintain oxygen. Discussed also with his and daughter, they had both gone through the coronavirus, and currently may have isolation discontinued. We discussed risks of unclear longevity of immunity following illness, which they state understand, and his would like to stay with him if this is possible to provide additional reassurance and support for him. For now we will avoid additional Ativan in case this may be contributing to disinhibition. We also discussed other possible medications may contribute including steroids. One-to-one sitter, supportive care, reorient, support oxygenation. If the conservative measures not working and he still requiring something we also discussed also trying to treat his pain in case this may be contributing. Otherwise if still intermittently becoming restless, cautious Precedex drip may be of use while monitoring. They understand that if his condition overall worsens with worsening oxygenation, or inability to tolerate supplemental oxygen, he may still require intubation and mechanical ventilation. They would prefer to keep this is a last resort if possible. Tomorrow we may also request pulmonology assistance when available special education instructor. We also discussed continuation of empiric antibiotics for possible superimposed bacterial pneumonia with Zosyn, azithromycin, although reassuring is that he does not appear to have focal consolidation on the repeat x-ray today. We also discussed regarding worsening D-dimer, and continuation of anticoagulation, although discussed for now we will transition over to Lovenox every 12 hours therapeutic dosing. Otherwise for now we are continuing remdesivir, Decadron. Continue nebs. Status: Acute (2) Pneumonia due to 2019-nCoV: Discussed with his and daughter, today appears to have some elevation of CRP compared to yesterday. D-dimer is elevated compared to the previous values. As above. Status: Acute (3) Acute hyponatremia: Sodium up to 129. For now hold off on evening dose of sodium chloride tablet. Recheck sodium level. 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 At this time etiology of this is not clear. We are continuing anticoagulation as discussed until additional evaluation may be performed. Status: Acute (5) Troponin level elevated: He has not had any chest pain today, but noted worsening oxygenation, we assess troponin series. Appears to have elevated troponin 183-236. 6-hour troponin pending. Discussed possibility of non-STEMI, versus type II PA with demand ischemia given worsening hypoxia, and transient hypoxia today while getting up from bed, removing CPAP. At this time he continues anticoagulation, will add aspirin. Resume beta-akilah. Start statin. Follow-up third troponin. Will monitor symptoms. Once his overall condition is more stable and improving he may benefit from additional risk stratification prior to discharge. Status: Acute Additional A&P Information D-dimer elevated but active PE ruled out with CTA PE protocol. As above. Possible superimposed bacterial pneumonia. Low chances of superadded bacterial infection. No leukocytosis, negative procalcitonin. MRSA swab awaited, urine Legionella and bacterial antigen negative. Continue with Zosyn and azithromycin. Hypertension: Close to goal. Continue to monitor blood pressures. Blood pressure at goal for now of medications. Iron panel consistent with several iron deficiency anemia. On oral iron supplementation. Attestations Medical Necessity Statement*: Continue admission for assessment of management of respiratory failure with hypoxia, severe COVID-19 pneumonia, hyponatremia, troponin abnormality, with left atrial mass, possibly thrombus and additional comorbidities as above. Coding Level of Care Code Acute Power Cutting Machine Operator for Chg Fwd Exam Comprehensive Diagnoses Acute respiratory failure with hypoxia J96.01 Pneumonia due to 2019-nCoV U07.1; J12.89 Acute hyponatremia E87.1 Left atrial mass I51.89 Troponin level elevated R77.8
[2020-09-08 15:32] LABS: Osmolality Serum 246 mOsm/kg (278-305)
[2020-09-08 15:32] LABS: Osmolality Urine 636 mOsm/kg (50-1200)
[2020-09-08 17:54] LABS: Sodium 127 mmol/L (136-145)
[2020-09-08 18:34] LABS: Troponin 5 6HR 456.9 ng/L (0-15); Troponin 5 6HR Delta 273.9 ng/L (0-12)
[2020-09-08] MEDS: dexmedetomidine 400 MCG in sodium chloride 0.9% (100 ml) 100 ML 5.1 MCG IV (18:43)
[2020-09-08] MEDS: metoprolol tartrate 25 mg Tablet PO (18:44)
[2020-09-08] MEDS: aspirin 325 mg EC Tablet PO (18:45)
--- NOTE | 2020-09-08 19:21 | PC.NURSE ---
at bedside along with 1:1 sitter. pt is finally resting quietly. updated regarding na & trop levels.
[2020-09-08] MEDS: enoxaparin 100 mg/mL Syringe SUBCUT (20:27)
[2020-09-08] MEDS: haloperidol inj 5 mg/mL INJ 1 mL IM (20:27)
[2020-09-09] VITALS (46 sets, daily range): BP systolic 89–153; BP diastolic 50–107; PULSE 68–140; RESP 17–66; TEMP 37.1–38.9; O2SAT 67–99
[2020-09-09] MEDS: dexmedetomidine 400 MCG in sodium chloride 0.9% (100 ml) 100 ML 20.3 MCG IV ×2 (00:26→06:21)
[2020-09-09] MEDS: famotidine 20 mg/2 mL INJ IVP ×2 (01:48→13:43)
[2020-09-09] MEDS: piperacillin-tazobactam 3.375 GM in sodium chloride 0.9% (plus) 50 ML IV ×3 (01:48→18:45)
[2020-09-09] MEDS: metoclopramide 5 mg/mL SDV 2 mL IVP ×3 (01:49→16:40)
[2020-09-09] MEDS: haloperidol inj 5 mg/mL INJ 1 mL IM ×3 (01:49→12:08)
[2020-09-09] MEDS: ipratropium-albuterol 3 mL Neb INHALATION ×6 (03:03→23:20)
--- NOTE | 2020-09-09 04:30 | ECG_ITS ---
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 Measurements Intervals [place] Rate: 67 P: 44 ID: [id number] QRS: -9 QRSD: 88 T: 39 QT: 416 QTc: 440 Interpretive Statements SINUS RHYTHM WITH SINUS ARRHYTHMIA LOW QRS VOLTAGE IN PRECORDIAL LEADS [QRS DEFLECTION < 1.0 mV IN CHEST LEADS] MODERATE ST DEPRESSION [0.05+ mV ST DEPRESSION] Compared to ECG 09/08/2020 11:04:11 ST (T wave) deviation now present Sinus tachycardia no longer present T-wave abnormality no longer present Electronically Signed On 09-11-2020 20:33:47 SERVICE ORDER DISPATCHER CHIEF by Leighann Saba M.D. [id number] f
[2020-09-09 05:29] LABS: Hematocrit 32.6 % (42.0-52.0); Hemoglobin 11.9 g/dL (11.7-16.6); Lymphocytes # 0.2 10^3/uL (0.8-4.8); Lymphocytes % 2.1 %; Mean Corpuscular HGB Conc 36.5 g/dL (30.0-36.0); Mean Corpuscular Hemoglobin 34.2 pg (28.0-34.0); Mean Corpuscular Volume 93.7 fL (80-94); Monocytes # 0.2 10^3/uL (0.2-0.9); Monocytes % 1.8 %; Neutrophils # 7.86 10^3/uL (1.8-7.7); Neutrophils % 95.6 %; Nucleated Red Blood Cells % 0 %; Platelet Count 85 10^3/cmm (130-400); Red Blood Count 3.48 10^6/uL (4.1-5.3); Red Cell Distribution Width 12.2 % (12.1-15.1); White Blood Count 8.2 10^3/uL (4.0-10.0)
[2020-09-09 05:51] LABS: Alanine Aminotransferase 40 U/L (0-41); Albumin Level 2.9 g/dL (3.5-5.2); Alkaline Phosphatase 91 IU/L (40-130); Anion Gap 15.4 (5-19); Aspartate Amino Transferase 83 U/L (0-40); Blood Urea Nitrogen 21 mg/dL (8-23); C Reactive Protein 218.7 mg/L (0.0-4.9); Calcium 7.5 mg/dL (8.5-10.5); Carbon Dioxide 21 mmol/L (22-29); Chloride 95 mmol/L (98-107); Creatinine Clr Calc Pharmacy 92.4354; Globulin 2.5 g/dL (1.3-4.6); Glomerular Filtration Rate 83.4 mL/min (90-130); Glucose 144 mg/dL (65-115); Osmolality Calculated 270 mOsm/kg (285-295); Potassium 4.4 mmol/L (3.5-5.1); Sodium 127 mmol/L (136-145); Total Bilirubin 0.8 mg/dL (0.15-1.2); Total Protein 5.4 g/dL (6.6-8.7)
--- NOTE | 2020-09-09 06:00 | XRR_ITS ---
PROCEDURE INFORMATION: Exam: XR Chest, 1 View Exam date and time: 09/09/2020 5:54 AM Age: 70 years old Clinical indication: Other: Hypoxia; Patient HX: Covid + TECHNIQUE: Imaging protocol: XR of the chest Views: 1 view. COMPARISON: CR XR chest 1V portable [id number] 09/08/2020 6:42 AM FINDINGS: Lungs: Patchy diffuse interstitial and alveolar airspace disease left lung greater than right. Edema and/or pneumonia. Pleural spaces: Unremarkable. No pleural effusion. No pneumothorax. Heart/Mediastinum: Unremarkable. No cardiomegaly. Bones/joints: Unremarkable. XR/XR chest 1V portable [id number] IMPRESSION: Patchy diffuse interstitial and alveolar airspace disease left lung greater than right. Edema and/or pneumonia. Covid within the differential diagnosis.
[2020-09-09 06:10] LABS: D Dimer >= 20.00 ug/mIFEU (0-0.59)
[2020-09-09] MEDS: HYDROmorphone 1 mg/mL INJ 1 mL 0.5 MG IVP (06:19)
[2020-09-09] MEDS: remdesivir 100 MG in sodium chloride 0.9% (100 ml) 100 ML IV (06:25)
--- NOTE | 2020-09-09 07:54 | ECG_ITS ---
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 Measurements Intervals [place] Rate: 95 P: 33 MN: 163 QRS: -26 QRSD: 146 T: -35 QT: 359 QTc: 453 Interpretive Statements SINUS RHYTHM POSSIBLE LEFT ATRIAL ENLARGEMENT [-0.1mV P WAVE IN V1/V2] BORDERLINE LEFT AXIS DEVIATION [QRS AXIS < -20] ARTIFACT Compared to ECG 09/09/2020 06:10:29 Intraventricular conduction delay now present Sinus arrhythmia no longer present ST (T wave) deviation no longer present Electronically Signed On 09-18-2020 7:38:04 CLERICAL AND OFFICE SUPPORT WORKERS by Leighann Saba M.D. [id number]
[2020-09-09 09:15] LABS: INR 1.72 (0.8-1.2)
[2020-09-09 09:17] LABS: Partial Thromboplastin Time 34.6 SECONDS (23.9-36.7)
[2020-09-09 09:18] LABS: Fibrinogen 391 mg/dL (174-498)
[2020-09-09 09:27] LABS: LAB Peripheral Smear Sent for Review
[2020-09-09] MEDS: sodium chloride 1 gm Tablet PO (09:30)
[2020-09-09] MEDS: ascorbic acid 500 mg Tablet 1000 MG PO (09:30)
[2020-09-09] MEDS: azithromycin 250 mg Tablet 500 MG PO (09:30)
[2020-09-09] MEDS: metoprolol tartrate 25 mg Tablet PO (09:31)
[2020-09-09] MEDS: benzonatate 100 mg Capsule PO (09:31)
[2020-09-09] MEDS: enoxaparin 100 mg/mL Syringe SUBCUT (09:31)
[2020-09-09] MEDS: aspirin 325 mg EC Tablet PO (09:31)
[2020-09-09] MEDS: zinc gluconate 50 mg Tablet PO (09:31)
[2020-09-09] MEDS: ferrous gluconate 324 mg Tablet PO (09:32)
[2020-09-09 09:36] LABS: Platelet Count 85 10^3/cmm (130-400)
[2020-09-09 09:38] LABS: D Dimer >= 20.00 ug/mIFEU (0-0.59)
[2020-09-09] MEDS: budesonide 0.5 mg/2 mL Neb INHALATION ×2 (09:47→19:47)
[2020-09-09] MEDS: dexmedetomidine 400 MCG in sodium chloride 0.9% (100 ml) 100 ML 17.7 MCG IV ×2 (13:09→21:01)
[2020-09-09] MEDS: dexamethasone 4 mg/mL INJ 6 MG IVP (13:44)
[2020-09-09] MEDS: morphine 4 mg/mL SDV 1 mL 2 MG IVP (13:45)
--- NOTE | 2020-09-09 14:58 | P.CONIM_ITS ---
Providers/Reason For Consult Consulting Physican/Specialty*: Pulmonary and critical care medicine Reason for Consult*: Severe COVID-19 pneumonia Attending Physician: Nikita Barber History of Present Illness History of Present Illness Alisa Hyatt is a 70 year old male who presented to the hospital on September 05 with worsening cough and shortness of breath. The patient tested positive for Covid 12 days prior to presenting to the hospital. The patient was found to be hypoxic in the emergency department and was put on 4 L oxygen. A chest x-ray obtained during admission revealed bilateral diffuse infiltrate. CT angiogram of the chest did not reveal any pulmonary embolism but revealed bilateral groundglass opacities predominantly the peripheral distribution as well as bilateral pleural effusion. He received treatment with remdesivir, dexamethasone and broad-spectrum antibiotics upon hospital admission. For the first 3 days, the patient's oxygen requirement stayed similar. His oxygen requirement increased on September 07 and he received 2 units of convalescent plasma. Over the past 2 days, his oxygen requirement has gone up. The patient was tried on noninvasive positive pressure ventilation however given his mental status he could not tolerate the facemask. Currently the patient is on high flow nasal cannula. I have seen and examined the patient in the vital ICU. Patient is tachypneic. Able to answer questions. He denied any shortness of breath. The patient has a history of benign essential tremor and is on propranolol which he has not taken since he presented to the hospital. He was visibly having tremor. I have reviewed the patient's radiologic data. The admission chest x-ray revealed bilateral diffuse infiltrate. Predominantly alveolar opacities. The chest x-ray obtained today with more interstitial and alveolar opacities. Infiltrate is also more prominent in the left lung compared to the right. Overall, the infiltrate appears to be better today compared to when he was admitted to the hospital. When the patient presented he also had hyponatremia, likely hypovolemic hypona tremia which had been corrected with solute replenishment. The patient had received haloperidol intramuscularly since yesterday due to delirium. He was also started on Precedex which was mildly complicated by development of bradycardia. The patient also had a fever of 100.2 today. Review of Systems Narrative: Unable to obtain a complete review of systems. The patient denied any significant respiratory difficulty however the communication was limited because of his mental status. Meds/Allergies Home Medications and Allergies Home Medications Medication Instructions Recorded Confirmed Last Taken Type propranolol 80 mg PO DAILY 09/05/20 09/05/20 09/04/20 08:00 History Allergies Allergy/AdvReac Type Severity Reaction Status Date / Time ondansetron [From Zofran] Allergy Unknown Unknown Unverified 09/08/20 12:05 Current Medications Current Medications Generic Name Dose Route Start Last Admin Trade Name Souleymaneq PRN Reason Stop Dose Admin Albuterol/Ipratropium 3 ml 09/06/20 20:00 09/09/20 11:50 Ipratropium-Albuterol 3 Ml Neb INHALATION 3 ml Q4H.RESPIRATORY VESNA Administration Ascorbic Acid 1,000 mg 09/06/20 18:00 09/09/20 09:30 Ascorbic Acid 500 Mg Tablet PO 1,000 mg BID VESNA Administration Aspirin 325 mg 09/09/20 09:00 09/09/20 09:31 Aspirin 325 Mg Ec Tablet PO 325 mg DAILY VESNA Administration Atorvastatin Calcium 40 mg 09/08/20 21:00 09/08/20 20:42 Atorvastatin 40 Mg Tablet PO Not Given BEDTIME VESNA Benzonatate 100 mg 09/05/20 15:00 09/09/20 09:31 Benzonatate 100 Mg Capsule PO 100 mg TID VESNA Administration Budesonide 0.5 mg 09/06/20 20:00 09/09/20 09:47 Budesonide 0.5 Mg/2 Ml Neb INHALATION 0.5 mg BID.RESPIRATORY VESNA Administration Dexamethasone 6 mg 09/06/20 11:30 09/09/20 13:44 Dexamethasone 4 Mg/Ml Inj IVP 6 mg Q24H VESNA Administration Enoxaparin Sodium 100 mg 09/08/20 21:00 09/09/20 09:31 Enoxaparin 100 Mg/Ml Syringe 1 mg/kg (100 mg) 100 mg SUBCUT Administration Q12H VESNA Famotidine 20 mg 09/06/20 14:00 09/09/20 13:43 Famotidine 20 Mg/2 Ml Inj IVP 20 mg Q12H VESNA Administration Ferrous Gluconate 324 mg 09/05/20 18:00 09/09/20 09:32 Ferrous Gluconate 324 Mg Tablet PO 324 mg BIDWM VESNA Administration Hydromorphone HCl 0.5 mg 09/06/20 21:23 09/09/20 06:19 Hydromorphone 1 Mg/Ml Inj 1 Ml IVP 0.5 mg Q6H PRN Administration pain Piperacillin Sod/Tazobactam 50 mls @ 12.5 mls/hr 09/07/20 01:45 09/09/20 13:32 Sod 3.375 gm/ Sodium Chloride IV Infused Q8H VESNA Infusion Dexmedetomidine HCl 400 mcg/ 104 mls @ 0 mls/hr 09/08/20 18:30 09/09/20 14:54 Sodium Chloride IV 0.6 mcg/kg/hr .Q0M VESNA 15.2 mls/hr Titration Protocol Per Protocol Metoclopramide HCl 5 mg 09/07/20 09:00 09/09/20 09:30 Metoclopramide 5 Mg/Ml Sdv 2 Ml IVP 5 mg Q8H VESNA Administration Metoprolol Tartrate 25 mg 09/08/20 21:00 09/09/20 09:31 Metoprolol Tartrate 25 Mg Tablet PO 25 mg BID@0900,2100 VESNA Administration Sodium Chloride 1 gm 09/05/20 18:00 09/09/20 09:30 Sodium Chloride 1 Gm Tablet PO 1 gm BID VESNA Administration PFSH Acute PFSH: Medical History Tremor Takes propranolol Surgical History No pertinent past surgical history Family History Other No pertinent family history Social History Smoking and tobacco status: never smoked Alcohol intake: never Substance/Drug Use: never Lives independently: Yes Household members: spouse Housing: House Vitals/I&O/Wt Last Vital Signs Temp 100.2 F H 09/09/20 14:00 Pulse 87 09/09/20 14:00 Resp 30 H 09/09/20 14:00 BP 137/94 09/09/20 14:00 Pulse Ox 90 09/09/20 14:00 09/08/20 09/09/20 09/09/20 22:59 06:59 14:59 Intake Total 62.07 / 832.07 433.005 / 1265.075 273.235 / 273.235 Output Total 0 / 1500 1200 / 2700 Balance 62.07 / -667.93 -766.995 / -1434.925 273.235 / 273.235 Weight last 48 hrs Weight 215 lb Physical Exam Narrative: EXAM NARRATIVE: General: The patient is mildly sedated with Precedex, able to answer simple questions, appears restless Respiratory: Auscultation: Crackles at bilateral lung bases, no wheezing or rhonchi Cardiovascular: Regular rate and rhythm, S1-S2 present, no murmur, no peripheral edema. Abdomen: Soft, nontender, nondistended, positive bowel sound Musculoskeletal: No obvious joint deformity Skin: No rash Neuro: Delirious, no gross motor abnormality Urinary Catheter Management^: Ivory: Cath Placed During This Visit: yes Reason for Continuing Indwelling Catheter: Accurate Measurement of Urinary Output in Critically Ill Patients Urinary Catheter Date of Insertion: 09/08/20 Urinary Catheter Time of Insertion: 11:48 Data Other Data: Attestation for Other Data: I personally reviewed and interpreted the following: Other data: The patient does not have any leukocytosis. When he came in his platelet count was 114,000 today it is 85,000. The hyponatremia is getting better. There is no evidence of renal dysfunction. A&P Assessment and plan (1) Acute respiratory failure with hypoxia: The patient has developed acute hypoxic respiratory failure secondary to COVID-19 pneumonia. The patient has bilateral diffuse infiltrate. The CT scan of the chest is consi stent with changes that are commonly seen in COVID-19 pneumonia. The latest chest x-ray obtained today revealed no interstitial opacity and alveolar opacity. Currently the patient is on high flow nasal cannula requiring somewhere between 75 to 85% oxygen. Status: Acute (2) Pneumonia due to 2019-nCoV: The patient is on dexamethasone, he has completed a course of remdesivir and has received convalescent plasma. Status: Acute (3) ARDS (adult respiratory distress syndrome): He is broadly covered with Zosyn and azithromycin. Azithromycin will be switched to doxycycline today. Status: Acute (4) Delirium: The patient appears to be delirious which is likely playing a role in the patient's overall status. Currently the patient is mildly sedated with Precedex. He can receive intramuscular haloperidol if needed. In addition, small dose of intravenous morphine will likely help him with air hunger and make him comfortable as well. Status: Acute (5) Troponin level elevated: The patient has elevated troponin level. He is currently anticoagulated with Lovenox. The patient has a platelet count which has reduced since admission however this is not a 50% drop. I doubt the patient has heparin induced thrombocytopenia. If the platelet continues to decrease, we might need to reduce the intensity of anticoagulation therapy. The troponin level is likely secondary to type II PR in the setting of hypoxia and overall condition. However, the patient will likely need further work-up once this acute condition has resolved. Status: Acute Coding Level of Care Code Acute Director Of Clinical Education for [facility] Diagnoses Acute respiratory failure with hypoxia J96.01 Pneumonia due to 2019-nCoV U07.1; J12.89 ARDS (adult respiratory distress syndrome) J80 Delirium R41.0 Troponin level elevated R77.8
--- NOTE | 2020-09-09 15:39 | XRR_ITS ---
PROCEDURE INFORMATION: Exam: XR Chest, 1 View Exam date and time: 09/09/2020 3:57 PM Age: 70 years old Clinical indication: Shortness of breath; Patient HX: Best images possible; Additional info: R/O pneumo TECHNIQUE: Imaging protocol: XR of the chest Views: 1 view. COMPARISON: CR XR chest 1V portable [id number] 09/09/2020 5:42 AM FINDINGS: Lungs: Diffuse interstitial densities are present throughout the left lung this finding has increased since prior examination. There is interstitial congestion present in the right lower lobe which may represent atelectasis. Pleural spaces: Unremarkable. No pleural effusion. No pneumothorax. Heart/Mediastinum: Unremarkable. No cardiomegaly. Bones/joints: Unremarkable. XR/XR chest 1V portable [id number] IMPRESSION: 1. Interstitial congestion throughout the left lung and right lower lobe increased since prior. 2. Otherwise negative examination
--- NOTE | 2020-09-09 15:40 | PC.NURSE ---
RT WENT IN ROOM LISTENED TO CHEST, PT SAT STRAIGHT UP IN BED & WAS TRYING TO CLIMB OUT. O2 SAT DROPPED TO 70'S HR TACHY IN 130'S. DR ESPARZA & RAISA NOTIFIED. WILL OBTAIN CXR. REMAINS ON HHFNC @90% RR UP IN 50'S. AXILLARY TEMP 102.1 FAMILY AT BEDSIDE
[2020-09-09] MEDS: propofol 1,000 MG/100 ML INJ 43.9 MG IV ×4 (17:00→23:31)
--- NOTE | 2020-09-09 17:07 | ANES.PROC ---
Anesthesia Procedures Procedure/Date: 09/09/20 Intubation: Time Out Performed: Yes Consent: requested by attending/covering physician Sedative (amount): other (propofol 20 mg) Paralytic (amount): succinylcholine (100 mg) Laryngoscope: fiber optic video scope (glidescope blade 4) ET Tube Size: 8 ET Tube Uncuffed: Yes Tube Secured Depth (cm): 23 Tube Secured Location: teeth Tube Placement Confirmation: visualized tube passing through cords, equal breath sounds bilaterally, no breath sounds over epigastrium, confirmation by capnometry and color change noted Patient Tolerated Procedure: well and no complications Intubation Complications: none
--- NOTE | 2020-09-09 17:10 | PM.PN ---
Subjective Subjective: Interval history: Overnight he had received multiple doses of Haldol, and was continued on Precedex due to episodes of restlessness. Last dose around 6 AM this morning. Initially this morning Precedex rate decreased due to decrease in heart rates down as well as 60s. Subsequently he had some rest, however, by the afternoon had an episode of severe anxiety, tachypnea, with worsened saturation at that time. At that juncture we discussed additional options with patient's family, including intubation, versus repeating a dose of haloperidol, increasing dose of Precedex again to help control his anxiety, allow for more effective ventilation. We discussed risks of QTC prolongation noted this morning with potential additional dose of Haldol. Given his oxygenation was reasonably well supported through the morning, his family had elected to give additional dose of Haldol, increased dose of Precedex and give additional time trial in the afternoon. He initially did well, and intubation initially was deferred. However, by later afternoon saturation was noted to again decrease, down into mid to low 80s. He also has not been tolerating CPAP which has been contributing to his anxiety, with quite significant centering, and so he continued on high flow cannula. Chest x-ray was repeated with finding of worsening bilateral diffuse infiltrates. Additional dose of 20 mg IV Lasix was ordered for him as well as Tylenol for fever 102 Fahrenheit. With concern for worsening oxygenation, intolerance of NIPPV support, episodic anxiety requiring large doses of antipsychotic medication, with very limited reserve, in case of additional worsening due to potential for poor outcome including respiratory arrest, arrhythmia, cardiac arrest, and other complications, after discussion with pulmonary service, as well as discussion of risks and benefits with family they had decided to proceed with intubation this evening. Performed by anesthesia, he tolerated the procedure without occasions. Performed by anesthesia, he tolerated procedure without complications. Vitals/I&O/Wt Last Vital Signs Temp 100.7 F H 09/09/20 16:00 Pulse 140 H 09/09/20 16:00 Resp 40 H 09/09/20 16:00 BP 135/92 09/09/20 16:00 Pulse Ox 67 L 09/09/20 16:00 09/09/20 09/09/20 09/09/20 06:59 14:59 22:59 Intake Total 433.005 / 1265.075 273.235 / 273.235 Output Total 1200 / 2700 Balance -766.995 / -1434.925 273.235 / 273.235 Weight last 48 hrs Weight 97.522 kg Weight 97.522 kg Physical Exam Const: COMMON NORMALS: no acute distress GENERAL APPEARANCE: anxious ORIENTATION/CONSCIOUSNESS: Yes awake, Yes oriented to person and Yes oriented to time; not oriented to place HENMT: COMMON NORMALS: oropharynx normal Neck/C-Spine: COMMON NORMALS: no JVD Resp: COMMON NORMALS: normal respiratory effort AUSCULTATION: crackles (Minimal crackles at bases.) Cardio: COMMON NORMALS: no JVD, regular rhythm, S1 normal heart sound present, S2 normal heart sound present and No murmurs present (Cardio) RHYTHM: regular rhythm HEART SOUNDS: S1 normal heart sound present and S2 normal heart sound present GI: COMMON NORMALS: Normal to inspection, nondistended, normoactive bowel sounds present, Soft to palpation and non-tender PALPATION: Yes Soft to palpation Extremity: COMMON NORMALS: no joint enlargement and no pedal edema Neuro: COMMON NORMALS: moves all extremities SENSORIUM/ORIENTATION: Yes oriented to person, No oriented to place and Yes oriented to time Skin: COMMON NORMALS: no rashes or lesions noted GENERAL SKIN EXAM: no rashes or lesions noted Urinary Catheter Management^: Ivory: Cath Placed During This Visit: yes Reason for Continuing Indwelling Catheter: Accurate Measurement of Urinary Output in Critically Ill Patients Urinary Catheter Date of Insertion: 09/08/20 Urinary Catheter Time of Insertion: 11:48 Data : 09/09/20 08:32 09/09/20 05:02 A&P Assessment and plan (1) Acute respiratory failure with hypoxia: Interpreters with decline in oxygenation, poor tolerance of NIPPV, worsening of infiltrates on chest x-ray, very limited respiratory reserve with episodes of anxiety, intubated today. CXR requested. Increase sedation if needed. At this time continue propofol, fentanyl. Versed pushes PRN. Discussed need for additional sedation while on ventilator, as well as if needed potential paralytic infusion, and proning with the family, and they would be agreeable to this as well if this were necessary. As he is still pulling larger tidal volumes than preferred, will also add versed drip. Norepinephrine drip requested in case of hypotension. Please also contact critical care in case of additional issues overnight. We will continue with Decadron this time. He has completed remdesivir. Continue empiric antibiotic coverage as discussed with his family for possible superimposed bacterial infection. Obtain sputum culture. Antibiotic changed from azithromycin to doxycycline. Continue Zosyn. Urine appearing somewhat turbid today, will request for UA sample as well. Status: Acute (2) Pneumonia due to 2019-nCoV: Severe COVID-19 pneumonia with acute respiratory failure, ARDS. As above. Concern for additional superimposed bacterial infection. D-dimer further increased today. Continue anticoagulation. Additionally noted thrombocytopenia, possibly related to sepsis. Does not appear in DIC. Reassess level tonight. Status: Acute (3) Acute hyponatremia: Sodium 127 this morning. Received NaCL tablet. Recheck sodium level tonight. 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 At this time etiology of this is not clear. We are continuing anticoagulation as discussed until additional evaluation may be performed. Status: Acute (5) Troponin level elevated: Discussed with family possible non-STEMI, versus type II DE with demand ischemia given worsening hypoxia, and transient hypoxia today while getting up from bed, removing CPAP. Continue aspirin. Beta-akilah may be resumed if blood pressure is stable. Continue to coagulation for now. Noted thrombocytopenia they can platelets down to 85,000. He did not receive Plavix last night due to altered mental status, for now we will hold off on this until we see the platelets level stabilizes. Status: Acute Additional A&P Information Thrombocytopenia: Assess DIC panel. Fibrinogen pressure normal. There is worsening D-dimer today. Attribute this is related to sepsis secondary to COVID-19, possible superimposed bacterial pneumonia, or other cause. Peripheral smear requested, although does not appear to be hemolyzing at this time. Will check LDH, haptoglobin. At the moment low probability of HIT, however, monitor platelets and low threshold to DC lovenox/change anticooagulation. Turbid urine: Assess UA. D-dimer elevated but active PE ruled out with CTA PE protocol on admission. Possibly due to worsening Covid 19 infection. Possibility of microthrombi disease discussed with patient's and daughter. Possibility also of other foci of VTE, including the unidentified area in left atrium. Discussed also possibility of NSTEMI. As above. Possible superimposed bacterial pneumonia. Low chances of superadded bacterial infection. No leukocytosis, negative procalcitonin. MRSA swab awaited, urine Legionella and bacterial antigen negative. Continue with Zosyn. Azithromycin changed to doxycycline. Collect sputum culture. Hypertension: Close to goal. Continue to monitor blood pressures. Blood pressure at goal for now of medications. Iron panel consistent with several iron deficiency anemia. On oral iron supplementation. Attestations Medical Necessity Statement*: Continue admission for assessment management of acute hypoxic respite failure with severe COVID-19 pneumonia, ARDS, possible superimposed bacterial pneumonia, additional comorbidities as above. Critical Care Time: In addition to known critical issues, 85 minutes critical care time spent at bedside for immediately life-threatening problems including respiratory failure, worsening hypoxia, ARDS, severe COVID-19 infection, requiring intubation, mechanical ventilator support, initiation of sedation, pressors, adjustment of antibiotic therapy, additional evaluation of thrombocytopenia to exclude life-threatening conditions, discussion with pulmonary technical services specialist, family at bedside. Coding Level of Care Code Acute Clinic Charge Nurse for [facility] Exam Comprehensive Diagnoses Acute respiratory failure with hypoxia J96.01 Pneumonia due to 2019-nCoV U07.1; J12.89 Acute hyponatremia E87.1 Left atrial mass I51.89 Troponin level elevated R77.8
[2020-09-09 17:36] LABS: ABG PCO2 35.8 mmHg (35-45); ABG PH Result 7.37 (7.35-7.45); Arterial Blood Gas Hematocrit 39.6 % (42-52); Base Excess ABG -4.2 mmol/L (-2.0-2.0); Blood Gas Allen Test Pos; Blood Gas Operator Identificat CAK; Blood Gas Sample Site Radial, left; Blood Gas Sample Type Arterial; HCO3 ABG 20.5 mmol/L (22-26); Oxygen Device VENT; PO2 ABG 62.2 mmHg (80.0-100.0)
[2020-09-09] MEDS: midazolam 1 mg/mL INJ 2 mL 2 MG IVP ×2 (17:40→23:46)
--- NOTE | 2020-09-09 18:03 | XRR_ITS ---
PROCEDURE INFORMATION: Exam: XR Chest, 1 View Exam date and time: 09/09/2020 6:09 PM Age: 70 years old Clinical indication: Device placement; Ett placement (vent status); Patient HX: Check for et placement; Additional info: Intubation TECHNIQUE: Imaging protocol: XR of the chest Views: 1 view. COMPARISON: CR XR chest 1V portable [id number] 09/09/2020 4:12 PM FINDINGS: Tubes, catheters and devices: Endotracheal tube tip in place 4.7 cm above the marcos. Enteric tube tip below the left diaphragm over the gastric bubble. Lungs: Unremarkable. No consolidation. Pleural spaces: Unremarkable. No pleural effusion. No pneumothorax. Heart/Mediastinum: Unremarkable. No cardiomegaly. Bones/joints: Unremarkable. Other findings: Patchy bilateral mixed interstitial airspace opacities somewhat less prominent compared to prior exam. XR/XR chest 1V portable [id number] IMPRESSION: 1. Endotracheal tube tip in place 4.7 cm above the marcos. 2. Enteric tube tip below the left diaphragm over the gastric bubble. 3. Patchy bilateral mixed interstitial airspace opacities somewhat less prominent compared to prior exam.
--- NOTE | 2020-09-09 18:47 | USCV_ITS ---
Alisa Hyatt Age: 70 Gender: M : 1950 Exam Date: 09/09/2020 06:17 Ordering Phys: Nikita Barber MD Technologist: Augusta Melissa Exam Location: [facility] [place] Indication: RWMA POST INCREASED TROPONIN BP: 118 / 71 HR: 67 Rhythm: Sinus Technical Quality: Adequate MEASUREMENTS (Male / Female) Normal Values 2D ECHO LV Diastolic Diameter PLAX 4.8 cm 4.2 - 5.9 / 3.9 - 5.3 cm LV Systolic Diameter PLAX 2.9 cm LV Chamber Size 3.7 cm IVS Diastolic Thickness 1.4 cm 0.6 - 1.0 / 0.6 - 0.9 cm IVS Systolic Thickness 2.0 cm LVPW Diastolic Thickness 1.3 cm 0.6 - 1.0 / 0.6 - 0.9 cm LVPW Systolic Thickness 1.8 cm RV Chamber Size 3.0 cm LVOT Diameter 2.1 cm LV Ejection Fraction 2D Teich 69.3 % LV Ejection Fraction MOD 2C 54.5 % LV Ejection Fraction 2C AL 55.6 % LA Diameter 3.2 cm LA Width 3.0 cm LA Height 3.4 cm RA Width 3.2 cm RA Height 4.2 cm Aorta at Sinotubular Diameter 3.8 cm M-MODE LV Diastolic Diameter MM 3.2 cm 4.2 - 5.9 / 3.9 - 5.3 cm LV Systolic Diameter MM 2.6 cm LV Ejection Fraction MM Teich 39.3 % IVS Diastolic Thickness MM 1.8 cm 0.6 - 1.0 / 0.6 - 0.9 cm IVS Systolic Thickness MM 1.9 cm LVPW Diastolic Thickness MM 1.8 cm 0.6 - 1.0 / 0.6 - 0.9 cm LVPW Systolic Thickness MM 1.9 cm Aortic Annulus Diameter 4.8 cm LA Ao Ratio MM 0.7 MV E Point Septal Separation 0.6 cm FINDINGS Left Ventricle Normal left ventricular size and systolic function, EF 55%. No gross wall motion normalities. Mild concentric left ventricular hypertrophy Right Ventricle The right ventricle is normal in size and function. Right Atrium Possibly of normal size Left Atrium Possibly of normal size. Mitral Valve No gross abnormalities noted Aortic Valve Thickened aortic valve. Tricuspid Valve No gross abnormalities noted Pulmonic Valve Pulmonic valve not well visualized. Pericardium No pericardial effusion. Aorta Dilated aortic root, measuring 4.4 cm at the level of the sinuses CONCLUSIONS Normal left ventricular size and systolic function, EF 55%. No gross wall motion normalities. Mild concentric left ventricular hypertrophy. Thickened aortic valve. Dilated aortic root, measuring 4.4 cm at the level of the sinuses. There is no pericardial effusion. No definite intracardiac masses noted Comparison with the previous study is difficult because of the difference in the technical quality Dr Gilma Ramirez MD FAC (Electronically Signed) Final Date: 09 September 2020 20:48 S
[2020-09-09 19:42] LABS: Basophils % 0.1 %; Hematocrit 35.3 % (42.0-52.0); Hemoglobin 12.7 g/dL (11.7-16.6); Lymphocytes # 0.1 10^3/uL (0.8-4.8); Lymphocytes % 0.8 %; Mean Corpuscular Hemoglobin 34.1 pg (28.0-34.0); Mean Corpuscular Volume 94.9 fL (80-94); Mean Platelet Volume 10.8 fL (7.4-10.4); Monocytes # 0.2 10^3/uL (0.2-0.9); Monocytes % 1.7 %; Neutrophils % 96.9 %; Nucleated Red Blood Cells % 0 %; Platelet Count 95 10^3/cmm (130-400); Red Blood Count 3.72 10^6/uL (4.1-5.3); Red Cell Distribution Width 12.4 % (12.1-15.1); White Blood Count 12.7 10^3/uL (4.0-10.0)
--- NOTE | 2020-09-09 20:10 | PC.NURSE ---
INTUBATION ANESTHESIA & DR ESPARZA HERE FOR INTUBATION. MEDICATIONS BROUGHT BY DR CROSS. RT & RN AT BEDSIDE. OG PLACED AFTER CONFIRMATION OF ET TUBE. PT CONTINUES TO OVER BREATHE THE VENT, ABDOMINAL MUSCLE USE, DR KLINE NOTIFIED & INCREASED SEDATION & CHANGE VENT SETTINGS. REPORT GIVEN TO DEION CRAWFORD
[2020-09-09 20:14] LABS: Sodium 130 mmol/L (136-145)
[2020-09-09 20:18] LABS: Glucose Urine UA Norm (Normal); Protein Urine 1+ (Negative); Urine Appearance Cloudy (CLEAR); Urine Color Yellow (Yellow); pH Urine 5 (5-7)
[2020-09-09 20:19] LABS: Add Urine Microscopic? YES; Bilirubin Urine Neg (Negative); Blood Urine 3+ (Negative); Ketones Urine 1+ (Negative); Leukocyte Esterase Urine Negative (Negative); Nitrate Urine Negative (Negative); Urobilinogen Urine Norm (Negative)
[2020-09-09 20:28] LABS: RBC Urine TOO NUMEROUS TO CNT /hpf (0-2)
[2020-09-09 20:29] LABS: Coarse Granular Casts Urine 15-25 /lpf; Mucus Urine 4+ /hpf
[2020-09-09 20:31] LABS: Add Urine Culture? Yes; Bacteria Urine 2+ /hpf; Squamous Epithelial Cell Urine 0-4 /hpf (0-5)
[2020-09-09 20:32] LABS: Lactate Dehydrogenase 1479 U/L (135-225)
--- NOTE | 2020-09-09 23:52 | PC.NURSE ---
[facility] 1900- Bedside change of shift report done with TY Werner. Patient is mechanically ventilated on VC-AC mode, FiO2 at 100%, TV 450, Rate of 14, PEEP 10, 25 cm at lip, and 8.0 tube. Patient is on versed at 4 mg/hour, propofol at 75 mcg/kg/min, fentanyl at 175 mcg/hour, precedex at 0.7 mcg/kg/hour, and levophed at 6 mcg/kg/min. Day shift RN turned levophed down to 4 mcg/kg/min due to MAP greater than 65. Patient is breathing large tidal volumes 800-1000s, critical care orders to increase sedation past max dose for fentanyl if needed.
[2020-09-10] VITALS (62 sets, daily range): BP systolic 96–130; BP diastolic 60–84; PULSE 77–113; RESP 14–161; TEMP 36.2–37.3; O2SAT 92–100
--- NOTE | 2020-09-10 00:07 | PC.NURSE ---
ET/OGT PLACEMENT 2099- Chest xray report not in yet, nurse called radiology to check on report since PO meds needed to be given at 1999 and 2099. Xray had not been sent to [facility] yet, mental health tech verbalized he would get it sent. Critical care message to nurse order put in by Dr. Barber to advance ET tube 2-3 cm. Patient was at 25 cm, but advanced to 27 cm by Liberty, RT. 2330- Dr. Jarvis was called to assess CXR to ensure that landmark findings listed on CXR for OGT were identifying correct placement of the OGT. 1999 and 2099 PO medications will now be given since OGT is confirmed placement in the correct spot.
--- NOTE | 2020-09-10 00:11 | PC.NURSE ---
SEDATION/TV 2340- Patient continuing to pull TV in the 900s-1000s. RT Liberty called Dr. Jiménez and he gave order to switch patient to PC-AC. Patient now on PC-AC mode, FiO2 75%, Rate 14, PEEP 8, and tube is 27 cm at lip. Versed was turned up to 6 mg/hour, and 2 mg versed push given per Dr. Jiménez to help with compliance and increased sedation to try to decrease tidal volumes. Patients TV are now in low to mid 700s.
--- NOTE | 2020-09-10 00:37 | PC.NURSE ---
FAMILY CALLED Nurse spoke with patients daughter, Arlene at approximately 2200. Notified Arlene of patients oxygen saturation and plan for tonight. Notified her of ventilator settings and that those could roving changer night depending on if patients tidal volumes still high. Discussed zofran situation with her as she wanted to make sure he would not be receiving any. Sedation medications gone over and family verbalized consent for central line if needed and to paralyze and prone if needed. Consent for central line if needed witnessed by TY De Souza.
[2020-09-10] MEDS: metoclopramide 5 mg/mL SDV 2 mL IVP ×3 (01:04→17:50)
[2020-09-10] MEDS: enoxaparin 100 mg/mL Syringe SUBCUT ×3 (01:12→21:54)
[2020-09-10] MEDS: metoprolol tartrate 25 mg Tablet PO ×2 (01:12→10:13)
[2020-09-10] MEDS: doxycycline 100 mg Tablet PO ×3 (01:12→20:49)
[2020-09-10] MEDS: atorvastatin 40 mg Tablet PO ×2 (01:12→21:54)
[2020-09-10] MEDS: piperacillin-tazobactam 3.375 GM in sodium chloride 0.9% (plus) 50 ML IV ×3 (01:13→17:50)
[2020-09-10] MEDS: famotidine 20 mg/2 mL INJ IVP ×2 (01:16→13:48)
[2020-09-10] MEDS: propofol 1,000 MG/100 ML INJ 43.9 MG IV ×7 (01:58→17:46)
[2020-09-10] MEDS: ipratropium-albuterol 3 mL Neb INHALATION ×6 (03:56→23:23)
[2020-09-10] MEDS: dexmedetomidine 400 MCG in sodium chloride 0.9% (100 ml) 100 ML 17.7 MCG IV ×3 (04:06→17:30)
[2020-09-10 05:11] LABS: Hematocrit 34.1 % (42.0-52.0); Hemoglobin 11.9 g/dL (11.7-16.6); Lymphocytes # 0.1 10^3/uL (0.8-4.8); Lymphocytes % 1.9 %; Mean Corpuscular HGB Conc 34.9 g/dL (30.0-36.0); Mean Corpuscular Hemoglobin 34.2 pg (28.0-34.0); Mean Platelet Volume 10.6 fL (7.4-10.4); Monocytes # 0.1 10^3/uL (0.2-0.9); Monocytes % 1.6 %; Neutrophils # 6.17 10^3/uL (1.8-7.7); Nucleated Red Blood Cells % 0 %; Platelet Count 89 10^3/cmm (130-400); Red Blood Count 3.48 10^6/uL (4.1-5.3); Red Cell Distribution Width 12.6 % (12.1-15.1); White Blood Count 6.4 10^3/uL (4.0-10.0)
[2020-09-10 05:17] LABS: Partial Thromboplastin Time 36.3 SECONDS (23.9-36.7)
[2020-09-10 05:18] LABS: Fibrinogen 458 mg/dL (174-498)
[2020-09-10 05:18] LABS: ABG PCO2 43.8 mmHg (35-45); ABG PH Result 7.37 (7.35-7.45); Arterial Blood Gas Hematocrit 37.8 % (42-52); Base Excess ABG -0.5 mmol/L (-2.0-2.0); Blood Gas Sample Type Arterial; PO2 ABG 85.8 mmHg (80.0-100.0)
[2020-09-10 05:19] LABS: Blood Gas Operator Identificat HARKR; Blood Gas Sample Site Brachial, left; Oxygen Device VENT
[2020-09-10 05:34] LABS: D Dimer >= 20.00 ug/mIFEU (0-0.59)
--- NOTE | 2020-09-10 05:57 | PC.NURSE ---
TRANSFER FROM ER 0135- Patient brought to unit by ED RN and RT on nonrebreather at 15L. Patients oxygen saturation in the mid 80s. Patient transferred to bed and RT placed on BIPAP at 100% and . Patient is alert and oriented and expressed the need to urinate. At this time patient is 81%, diaphoretic and unstable to get up or exert for bedpan. Ivory catheter placed per physician. 600 mL urine returned when placed.
--- NOTE | 2020-09-10 06:00 | XR_ITS ---
WS: [id number] Portable AP semiupright chest, 09/10/2020 Clinical Data: covid Comparison: Portable chest, 09/09/2020 Findings: Diffuse bilateral patchy opacities have not changed. The endotracheal tube and nasogastric tube remain in good position. Monitor leads are on the chest wall. The heart is normal. XR/XR chest 1V portable [id number] Impression: 1. Diffuse bilateral opacities consistent with pneumonia unchanged. 2. No change in endotracheal tube and nasogastric tube.
[2020-09-10 06:03] LABS: Alanine Aminotransferase 36 U/L (0-41); Albumin Level 2.7 g/dL (3.5-5.2); Alkaline Phosphatase 124 IU/L (40-130); Anion Gap 12.5 (5-19); Aspartate Amino Transferase 53 U/L (0-40); Blood Urea Nitrogen 23 mg/dL (8-23); Calcium 7.8 mg/dL (8.5-10.5); Carbon Dioxide 24 mmol/L (22-29); Chloride 105 mmol/L (98-107); Creatinine Clr Calc Pharmacy 83.1919; Globulin 2.8 g/dL (1.3-4.6); Glomerular Filtration Rate 73.9 mL/min (90-130); Glucose 173 mg/dL (65-115); Osmolality Calculated 292 mOsm/kg (285-295); Potassium 4.5 mmol/L (3.5-5.1); Sodium 137 mmol/L (136-145); Total Bilirubin 0.5 mg/dL (0.15-1.2); Total Protein 5.5 g/dL (6.6-8.7)
--- NOTE | 2020-09-10 06:39 | PC.NURSE ---
SHIFT SUMMARY Patient on PC-AC mode, FiO2 at 70%, Rate of 14 and PEEP of 8. Patients oxygen has been in the mid 90s this shift. Thick, red secretions. Levophed paused around 0100, no issues with BP since paused. Fentanyl at 200 mcg/hour, versed at 6 mg/hour, precedex at 0.7 mcg/kg/hour, and propofol at 75 mcg/kg/min. 2,000 mL urine output. Tidal volumes now down into 400s-500s range.
[2020-09-10 07:07] LABS: C Reactive Protein 248.2 mg/L (0.0-4.9)
[2020-09-10] MEDS: budesonide 0.5 mg/2 mL Neb INHALATION ×2 (08:00→20:44)
--- NOTE | 2020-09-10 08:30 | PC.NURSE ---
Letty, pt's daughter called for update. Discussed pt's condition with her. Consent to add Umang Hyatt, pt's son, to contact list received.
[2020-09-10] MEDS: aspirin 325 mg EC Tablet PO (08:54)
[2020-09-10] MEDS: zinc gluconate 50 mg Tablet PO (08:54)
[2020-09-10] MEDS: benzonatate 100 mg Capsule PO ×2 (08:54→15:03)
[2020-09-10] MEDS: sodium chloride 1 gm Tablet PO (08:54)
[2020-09-10] MEDS: ferrous gluconate 324 mg Tablet PO ×2 (08:54→17:47)
[2020-09-10] MEDS: ascorbic acid 500 mg Tablet 1000 MG PO ×2 (08:54→17:50)
--- NOTE | 2020-09-10 10:55 | PC.NURSE ---
Updated daughter Letty on pt's condition.
--- NOTE | 2020-09-10 11:08 | PC.SOCIAL ---
IMM Updated Updated pt's , via phone, Pg 2 IMM. No questions voiced. Provided nurse a copy to give to pt. Signed, dated, & timed copy in chart.
--- NOTE | 2020-09-10 11:09 | PC.SOCIAL ---
IMM Updated Updated pt's on Pg 2 IMM. No questions voiced. Signed, dated, & timed copy in chart.
[2020-09-10] MEDS: dexamethasone 4 mg/mL INJ 6 MG IVP (13:48)
--- NOTE | 2020-09-10 17:09 | P.PN_ITS ---
Subjective Subjective: Interval history: The patient was seen and examined. The patient is sedated. Overnight patient had some ventilator asynchrony. I have evaluated the asynchrony in detail today. It appears that the patient is suffering from entrainment and reverse triggering. On pressure support ventilation the patient is not initiating any breath. The patient is currently on 60% FiO2. The chest x-ray from this morning was unchanged compared to before. The patient has bilateral interstitial infiltrate more on the left than the right. Medications: Reviewed: Yes Vitals/I&O/Wt Last Vital Signs Temp 98.7 F 09/10/20 14:00 Pulse 92 09/10/20 16:00 Resp 15 09/10/20 16:38 BP 112/75 09/10/20 16:00 Pulse Ox 95 09/10/20 16:00 09/10/20 09/10/20 09/10/20 06:59 14:59 22:59 Intake Total 869.966 / 1515.101 483.7 / 483.7 202.787 / 686.487 Output Total 1999 / 0 Balance -1130.034 / -784.899 483.7 / 483.7 202.787 / 686.487 Weight last 48 hrs Weight 215 lb Physical Exam Narrative: EXAM NARRATIVE: General: The patient is intubated and sedated Respiratory: Auscultation: Crackles at bilateral lung bases, no wheezing or rhonchi Cardiovascular: Regular rate and rhythm, S1-S2 present, no murmur, no peripheral edema. Abdomen: Soft, nondistended, positive bowel sound Musculoskeletal: No obvious joint deformity Skin: No rash Neuro: Sedated, not responsive Urinary Catheter Management^: Ivory: Cath Placed During This Visit: yes Reason for Continuing Indwelling Catheter: Accurate Measurement of Urinary Output in Critically Ill Patients Urinary Catheter Date of Insertion: 09/08/20 Urinary Catheter Time of Insertion: 11:48 Data : 09/10/20 03:55 09/10/20 03:55 Micro: Microbiology 09/09/20 17:30 Gram Stain - Final Sputum - Endotracheal Tube Aspirate 09/09/20 11:40 Urine Culture - Preliminary Urine Catheterized 09/09/20 03:55 Blood Culture - Preliminary Blood SPECIMEN COLLECTED 09/09/20 03:55 Blood Culture - Preliminary Blood SPECIMEN COLLECTED 09/05/20 02:40 Blood Culture - Final Blood NO GROWTH AFTER 5 DAYS 09/05/20 02:30 Blood Culture - Final Blood NO GROWTH AFTER 5 DAYS Attestation for Other Data: I personally reviewed and interpreted the following: Other data: I have reviewed the patient's laboratory, microbiologic and radiologic data. The patient has no neutrophilia. Creatinine is normal. The endotracheal aspirate from question and culture was negative. A&P Assessment and plan (1) Acute respiratory failure with hypoxia: The patient has developed acute hypoxic respiratory failure secondary to COVID-19 pneumonia. The patient has bilateral diffuse infiltrate. The CT scan of the chest is consistent with changes that are commonly seen in COVID-19 pneumonia. Patient is currently on volume control mechanical ventilation. He is currently on 60% FiO2. The patient has excellent lung compliance. Hypoxia is likely secondary to significant VQ mismatch. The ventilator tracings are consistent with entrainment and reverse triggering. I have discontinued the midazolam infusion completely. We will reduce the patient's sedation and hopefully this will help with more synchronous ventilation. We will continue to go down on the FiO2 and make ventilator changes as necessary. Can start the patient on tube feed. Use Lasix to maintain even or mildly negative fluid balance. Status: Acute (2) Pneumonia due to 2018-nCoV: The patient is on dexamethasone, he has completed a course of remdesivir and has received convalescent plasma. Status: Acute (3) ARDS (adult respiratory distress syndrome): He is broadly covered with Zosyn and doxycycline. Status: Acute Attestations Medical Necessity Statement*: Will defer to the primary team Coding Level of Care Code Acute Fraud Analyst for [facility] Diagnoses Acute respiratory failure with hypoxia J96.01 Pneumonia due to 2019-nCoV U07.1; J12.89 ARDS (adult respiratory distress syndrome) J80
[2020-09-10 19:16] LABS: Sodium 138 mmol/L (136-145)
--- NOTE | 2020-09-10 19:20 | PC.NURSE ---
Shift summary: Pt remains intubated and sedated. He has fentanyl at 200mcg/hr, Precedex at 0.7mcg/kg/hr and propofol at 65mcg/kg/min infusing. Per Dr Jiménez the Versed gtt stopped but still hanging in case pt starts struggling again. His sedation has been very deep today per previous orders. Pt Vent settings just changed from PC-AC to VC-AC and volume of 480, per Dr Jiménez. FIO2 remains at 60 %. Pulmocare tube feedings with 250ml H2O flushes every 6 hours just started. Pt has had 1100ml of clear yellow urine output. Daughter Letty, has been updated 3 times this shift on pt's condition.
[2020-09-10] MEDS: propofol 1,000 MG/100 ML INJ 38 MG IV (20:04)
--- NOTE | 2020-09-10 20:27 | PM.PN ---
Subjective Subjective: Interval history: Intubated, sedated, not in distress. Vitals/I&O/Wt Last Vital Signs Temp 98.4 F 09/10/20 18:00 Pulse 84 09/10/20 18:00 Resp 15 09/10/20 18:00 BP 118/70 09/10/20 18:00 Pulse Ox 92 09/10/20 18:00 09/10/20 09/10/20 09/10/20 06:59 14:59 22:59 Intake Total 869.966 / 1515.101 483.7 / 483.7 406.787 / 890.487 Output Total 1999 / 2299 Balance -1130.034 / -784.899 483.7 / 483.7 406.787 / 890.487 Weight last 48 hrs Weight 97.522 kg Physical Exam Const: COMMON NORMALS: no acute distress GENERAL APPEARANCE: comfortable OTHER: Intubated, sedated. HENMT: COMMON NORMALS: oropharynx normal Neck/C-Spine: COMMON NORMALS: no JVD Resp: COMMON NORMALS: normal respiratory effort and clear to auscultation bilaterally AUSCULTATION: clear to auscultation bilaterally OTHER: During my visit earlier today is not overbreathing the ventilator. Tidal volumes improved. Cardio: COMMON NORMALS: no JVD, regular rhythm, S1 normal heart sound present, S2 normal heart sound present and No murmurs present (Cardio) RHYTHM: regular rhythm HEART SOUNDS: S1 normal heart sound present and S2 normal heart sound present GI: COMMON NORMALS: Normal to inspection, nondistended, normoactive bowel sounds present, Soft to palpation and non-tender PALPATION: Yes Soft to palpation Extremity: COMMON NORMALS: no joint enlargement and no pedal edema Neuro: COMMON NORMALS: moves all extremities Skin: COMMON NORMALS: no rashes or lesions noted GENERAL SKIN EXAM: no rashes or lesions noted Urinary Catheter Management^: Ivory: Cath Placed During This Visit: yes Reason for Continuing Indwelling Catheter: Accurate Measurement of Urinary Output in Critically Ill Patients Urinary Catheter Date of Insertion: 09/08/20 Urinary Catheter Time of Insertion: 11:48 Data : 09/10/20 03:55 09/10/20 17:40 Micro: Microbiology 09/09/20 17:30 Gram Stain - Final Sputum - Endotracheal Tube Aspirate 09/09/20 11:40 Urine Culture - Preliminary Urine Catheterized 09/09/20 03:55 Blood Culture - Preliminary Blood SPECIMEN COLLECTED 09/09/20 03:55 Blood Culture - Preliminary Blood SPECIMEN COLLECTED 09/05/20 02:40 Blood Culture - Final Blood NO GROWTH AFTER 5 DAYS 09/05/20 02:30 Blood Culture - Final Blood NO GROWTH AFTER 5 DAYS A&P Assessment and plan (1) Acute respiratory failure with hypoxia: With sedation his breathing significantly improved. Oxygenation appears to be improving. Down to FiO2 of 60% requirement today. Weaned off Levophed overnight. Ventilator settings adjusted by pulmonology. Discussed, appreciate recommendations. Apparently still gets quite restless try and wean down sedation. Discussed with family and for anxiety and mental status may be a barrier when coming closer to extubation. We will continue to reassess. Switch beta-akilah to propranolol. CRP continues to be elevated. D-dimer elevated. Continue Decadron, empiric antibiotics. Continue anticoagulation. Continue mechanical ventilator support. Discussed chest x-ray findings. Please also contact critical care in case of additional issues overnight. We will continue with Decadron this time. He has completed remdesivir. Continue empiric antibiotic coverage as discussed with his family for possible superimposed bacterial infection. Obtain sputum culture. Antibiotic changed from azithromycin to doxycycline. Continue Zosyn. Urine appearing somewhat turbid today, will request for UA sample as well. Status: Acute (2) Pneumonia due to 2019-nCoV: Completed remdesivir. Completed 2 doses of convalescent plasma. As above. Severe COVID-19 pneumonia with acute respiratory failure, ARDS. As above. Concern for additional superimposed bacterial infection. Elevated D-dimer. Persistently elevated CRP. Continue anticoagulation. Thrombocytopenia stabilized. No sign of DIC. Status: Acute (3) Acute hyponatremia: Sodium has been rising. Last night up to 130, this morning further jose to 137. NaCl tablets discontinued. Discussed with pharmacy and we have switched over which her infusions were possible to D5W. Recheck sodium this evening stabilized at 138. Will continue infusions with D5W for now. Reassess sodium. Status: Acute (4) Left atrial mass: Not visualized on limited repeat echo, however, poor technical quality. Will still need additional assessment. Discussed possibility of thrombus given renal scattered small hypodensities, several also noted in the liver cannot exclude embolic etiology. Continue anticoagulation. Status: Acute (5) Troponin level elevated: Discussed with family possible non-STEMI, versus type II LA with demand ischemia. Continue aspirin. Beta-akilah may be resumed if blood pressure is stable. Continue to coagulation for now. Noted thrombocytopenia platelets stabilized around 85-90,000. For now with thrombocytopenia would not reorder Plavix. Status: Acute Additional A&P Information Thrombocytopenia: Possibly secondary to sepsis. Continue treatment of underlying condition. Does not appear to be in DIC. Pending peripheral smear. Low likelihood of HIT by 4 T score. No hemolysis by chemistries. Low plasmic score risk for TTP. Turbid urine: No evidence of UTI. Microscopic hematuria. Discussed with his . Difficult to say the etiology at this time Ivory catheter placement. Also discussed noted multiple renal hypodensities that could not be further characterized on CT on 09/07. Again cannot exclude embolic shower from possible left atrial VTE or lesion. No gross hematuria. For now continue anticoagulation. Scattered renal hypodensities Several liver hypodensities too small to characterize on CT D-dimer elevated but active PE ruled out with CTA PE protocol on admission. Possibly due to worsening Covid 19 infection. Possibility of microthrombi disease. Possibility also of other foci of VTE, including the unidentified area in left atrium. Possibility of NSTEMI. As above. Possible superimposed bacterial pneumonia. No growth on culture so far. Continue. Antibiotics with Zosyn, doxycycline. MRSA PCR negative, urine Legionella and bacterial antigen negative. Hypertension: Close to goal. Continue to monitor blood pressures. Blood pressure at goal for now of medications. Iron panel consistent with several iron deficiency anemia. On oral iron supplementation. Discussed his condition, assessment and plan with his who is agreeable with present plan, with all questions answered. Attestations Medical Necessity Statement*: Continue patient's versus management of respiratory failure, severe COVID-19 pneumonia. Coding Level of Care Code Acute De Alcholizer for [facility] Fwd Diagnoses Acute respiratory failure with hypoxia J96.01 Pneumonia due to 2019-nCoV U07.1; J12.89 Acute hyponatremia E87.1 Left atrial mass I51.89 Troponin level elevated R77.8
[2020-09-11] VITALS (40 sets, daily range): BP systolic 100–154; BP diastolic 62–88; PULSE 72–100; RESP 16–25; TEMP 37–37.9; O2SAT 83–96
[2020-09-11] MEDS: propofol 1,000 MG/100 ML INJ 26.3 MG IV ×5 (00:17→15:20)
[2020-09-11] MEDS: dexmedetomidine 400 MCG in sodium chloride 0.9% (100 ml) 100 ML 17.7 MCG IV ×3 (01:06→13:10)
[2020-09-11] MEDS: metoclopramide 5 mg/mL SDV 2 mL IVP ×3 (02:58→16:43)
[2020-09-11] MEDS: famotidine 20 mg/2 mL INJ IVP ×2 (02:58→14:08)
[2020-09-11] MEDS: ipratropium-albuterol 3 mL Neb INHALATION ×5 (03:20→19:44)
[2020-09-11 04:47] LABS: ABG PH Result 7.45 (7.35-7.45); Arterial Blood Gas Hematocrit 37.5 % (42-52); Base Excess ABG 0.6 mmol/L (-2.0-2.0); Blood Gas Sample Site Brachial, left; Blood Gas Sample Type Arterial; Blood Gas Tidal Volume 0.48; HCO3 ABG 24.3 mmol/L (22-26); Oxygen Device VENT
[2020-09-11 04:58] LABS: Eosinophils % 0.2 %; Hematocrit 35.1 % (42.0-52.0); Hemoglobin 11.8 g/dL (11.7-16.6); Lymphocytes # 0.2 10^3/uL (0.8-4.8); Lymphocytes % 4.3 %; Mean Corpuscular HGB Conc 33.6 g/dL (30.0-36.0); Mean Corpuscular Hemoglobin 33.7 pg (28.0-34.0); Mean Corpuscular Volume 100.3 fL (80-94); Mean Platelet Volume 10.4 fL (7.4-10.4); Monocytes # 0.1 10^3/uL (0.2-0.9); Neutrophils # 4.57 10^3/uL (1.8-7.7); Neutrophils % 92.9 %; Nucleated Red Blood Cells % 0 %; Platelet Count 107 10^3/cmm (130-400); White Blood Count 4.9 10^3/uL (4.0-10.0)
[2020-09-11 05:27] LABS: C Reactive Protein 150.8 mg/L (0.0-4.9)
[2020-09-11 05:28] LABS: Alanine Aminotransferase 31 U/L (0-41); Albumin Level 2.7 g/dL (3.5-5.2); Alkaline Phosphatase 125 IU/L (40-130); Anion Gap 12.4 (5-19); Aspartate Amino Transferase 31 U/L (0-40); Blood Urea Nitrogen 24 mg/dL (8-23); Calcium 7.7 mg/dL (8.5-10.5); Carbon Dioxide 22 mmol/L (22-29); Chloride 107 mmol/L (98-107); Creatinine Clr Calc Pharmacy 92.4354; Globulin 2.7 g/dL (1.3-4.6); Glomerular Filtration Rate 83.4 mL/min (90-130); Glucose 158 mg/dL (65-115); Osmolality Calculated 291 mOsm/kg (285-295); Potassium 4.4 mmol/L (3.5-5.1); Sodium 137 mmol/L (136-145); Total Bilirubin 0.4 mg/dL (0.15-1.2); Total Protein 5.4 g/dL (6.6-8.7)
--- NOTE | 2020-09-11 06:00 | XR_ITS ---
WS: [id number] Portable AP upright chest, 09/11/2020 Clinical Data: Hypoxia Comparison: Portable chest, 09/10/2020 Findings: The endotracheal tube and nasogastric tube remain in good position. The heart is enlarged. The bilateral patchy opacities have not changed. Monitor leads on the chest wall. XR/XR chest 1V portable [id number] Impression: 1. No change in diffuse bilateral opacities. 2. No change in endotracheal tube and nasogastric tube.
[2020-09-11 06:20] LABS: D Dimer 18.42 ug/mIFEU (0-0.59)
--- NOTE | 2020-09-11 06:23 | PC.NURSE ---
Addendum entered by Deion Pillai RN 09/11/20 06:36: 75 mL of versed wasted with Paris Perdomo RN. Original Note: WASTED 75ML OF VERSED FROM HANGING BAG WITH DEION PILLAI RN
--- NOTE | 2020-09-11 06:39 | PC.NURSE ---
ASSUMING CARE 1900- Patient on VC-AC mode. TV 480, Rate of 14, PEEP of 8, and FiO2 of 60%. Ivory catheter in place and draining. Propofol at 65 mcg/kg/min, fentanyl at 200 mcg/hour, and precedex at 0.7 mcg/kg/hour. Dr. Jiménez contacted respiratory and requested setting changes. Rate increased to 20. Requested that respiratory relay to nurse to titrate down on sedation medications.
--- NOTE | 2020-09-11 07:08 | PC.NURSE ---
SPOKE WITH FAMILY Spoke with patients son, Dutch, and daughter Arlene to update last night.
[2020-09-11] MEDS: zinc gluconate 50 mg Tablet PO (07:44)
[2020-09-11] MEDS: ferrous gluconate 324 mg Tablet PO ×2 (07:44→17:44)
[2020-09-11] MEDS: ascorbic acid 500 mg Tablet 1000 MG PO ×2 (08:54→17:43)
[2020-09-11] MEDS: enoxaparin 100 mg/mL Syringe SUBCUT ×2 (08:54→20:16)
[2020-09-11] MEDS: propranolol 40 mg Tablet PO ×2 (08:55→17:43)
[2020-09-11] MEDS: aspirin 325 mg EC Tablet PO (08:55)
[2020-09-11] MEDS: benzonatate 100 mg Capsule PO ×2 (08:55→14:09)
[2020-09-11] MEDS: budesonide 0.5 mg/2 mL Neb INHALATION ×2 (09:01→19:44)
[2020-09-11] MEDS: midazolam 1 mg/mL INJ 2 mL 2 MG IVP ×2 (09:23→16:43)
[2020-09-11] MEDS: doxycycline 100 mg Tablet PO ×2 (09:25→20:16)
--- NOTE | 2020-09-11 10:00 | PC.NURSE ---
Letty, daughter called for an update. Spoke with her about her father's condition. All questions answered.
[2020-09-11] MEDS: dexamethasone 4 mg/mL INJ 6 MG IVP (14:08)
--- NOTE | 2020-09-11 16:54 | PC.NURSE ---
Called Arlene, daughter, to give update.
--- NOTE | 2020-09-11 18:33 | PM.PN ---
Subjective Subjective: Interval history: The patient was seen and examined. The patient is comfortably sedated. Not responsive at this time. Spiked a fever of 102 today. All microbiologic work-up has been negative. Chest x-ray this morning revealed no new infiltrate. The white count is normal. Currently the patient is on 50% FiO2. We were able to discontinue the Versed drip. The patient received 2 doses of 2 mg of IV Versed today. Medications: Reviewed: Yes Vitals/I&O/Wt Last Vital Signs Temp 100 F H 09/11/20 15:00 Pulse 86 09/11/20 15:54 Resp 22 H 09/11/20 17:55 BP 136/80 09/11/20 15:00 Pulse Ox 92 09/11/20 15:54 09/11/20 09/11/20 09/11/20 06:59 14:59 22:59 Intake Total 358.214 / 1570.067 814.287 / 180.235 7046.042 / 2079.329 Output Total 575 / 575 Balance 358.214 / 1095.067 814.287 / 814.287 690.042 / 1504.329 Weight last 48 hrs Weight 197 lb 4.8 oz Physical Exam Narrative: EXAM NARRATIVE: General: The patient is intubated and sedated Respiratory: Auscultation: Crackles at bilateral lung bases, no wheezing or rhonchi Cardiovascular: Regular rate and rhythm, S1-S2 present, no murmur, no peripheral edema. Abdomen: Soft, nondistended, positive bowel sound Musculoskeletal: No obvious joint deformity Skin: No rash Neuro: Sedated, not responsive Urinary Catheter Management^: Ivory: Cath Placed During This Visit: yes Reason for Continuing Indwelling Catheter: Accurate Measurement of Urinary Output in Critically Ill Patients Urinary Catheter Date of Insertion: 09/08/20 Urinary Catheter Time of Insertion: 11:48 Data : 09/11/20 03:43 09/11/20 03:43 Micro: Microbiology 09/09/20 17:30 Gram Stain - Final Sputum - Endotracheal Tube Aspirate Sputum Culture - Preliminary 09/09/20 11:40 Urine Culture - Final Urine Catheterized 09/09/20 19:00 Urine Culture - Preliminary Urine,Clean Catch 09/09/20 03:55 Blood Culture - Preliminary Blood NEGATIVE TO DATE 02/02/21 03:55 Blood Culture - Preliminary Blood NEGATIVE TO DATE Attestation for Other Data: I personally reviewed and interpreted the following: Other data: I have reviewed the patient's laboratory, microbiologic and radiologic data. A&P Assessment and plan (1) Acute respiratory failure with hypoxia: The patient is currently on 50% FiO2. The patient did well on a trial of PSV. His tidal volume appears to be in high 802 more than a liter. Currently the patient is on volume control mechanical ventilation. We were able to cut down on the sedation. The Versed is off. We are going to try to go up on Precedex up to 1.5 mcg/kg/h in an attempt to further reduce the propofol and fentanyl infusion. Once the FiO2 requirement drops to 40% we will initiate our extubation process. Status: Acute (2) Pneumonia due to nCo: The patient is on dexamethasone, he has completed a course of remdesivir and has received convalescent plasma. The patient had a fever today. It is unclear what the etiology of the fever is. However, he does not have a spike in white count, no increased oxygen requirement and no new pulmonary infiltrate on the chest x-ray. We will continue with the current antibiotic regimen. The patient is also receiving full dose anticoagulation. I have reduced the dose of aspirin to 81 mg daily. The patient is receiving tube feeds. We will give him a dose of 20 mg of IV Lasix to prevent any significant fluid overload. 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 Diagnoses Acute respiratory failure with hypoxia J96.01 Pneumonia due to nCoV U07.1; J12.89
--- NOTE | 2020-09-11 19:15 | PC.NURSE ---
shift summary: Pt remains intubated and sedated. His sedation has been decreased since yesterday. Fentanyl at 125mcg/hr, Propofol at 40 mcg/kg/min. Both to be further decreased per Dr Jiménez. The precedex was increased to 1mcg/kg/hr. Dr Jiménez changed the vent settings: increased the RR to 18 and the tidal volume to 500. The FIO2 was 50%. Pt has tolerated repositioning better today, his O2 sats still decrease but they recover . Urine output of 575ml, urine darker at end of shift.
--- NOTE | 2020-09-11 19:22 | PC.NURSE ---
Report given to TY Hou
[2020-09-11] MEDS: propofol 1,000 MG/100 ML INJ 23.4 MG IV (19:30)
[2020-09-11] MEDS: dexmedetomidine 400 MCG in sodium chloride 0.9% (100 ml) 100 ML 25.4 MCG IV (19:30)
[2020-09-11] MEDS: FUROsemide 10 mg/mL SDV 2mL 20 MG IVP (19:30)
--- NOTE | 2020-09-11 20:08 | P.PN_ITS ---
Subjective Subjective: Interval history: He appears to be resting comfortably while sedated. He has been able to calm down sedation without him getting overly restless. Vitals/I&O/Wt Last Vital Signs Temp 100 F H 09/11/20 15:00 Pulse 74 09/11/20 19:44 Resp 21 H 09/11/20 19:51 BP 139/82 09/11/20 18:00 Pulse Ox 94 09/11/20 19:44 09/11/20 09/11/20 09/11/20 06:59 14:59 22:59 Intake Total 358.214 / 1570.067 814.287 / 859.457 9613.560 / 2113.847 Output Total 575 / 575 Balance 358.214 / 1095.067 814.287 / 814.287 724.560 / 1538.847 Weight last 48 hrs Weight 89.494 kg Physical Exam Const: COMMON NORMALS: no acute distress GENERAL APPEARANCE: comfortable and anxious ORIENTATION/CONSCIOUSNESS: Yes awake, Yes oriented to person and Yes oriented to time; not oriented to place OTHER: Intubated, sedated. HENMT: COMMON NORMALS: oropharynx normal Eye: OTHER: Pupils round and symmetrical Neck/C-Spine: COMMON NORMALS: no JVD Resp: COMMON NORMALS: normal respiratory effort and clear to auscultation bilaterally AUSCULTATION: clear to auscultation bilaterally and crackles (Minimal crackles at bases.) OTHER: During my visit earlier today is not overbreathing the ventilator. Tidal volumes improved. Cardio: COMMON NORMALS: no JVD, regular rhythm, S1 normal heart sound present, S2 normal heart sound present and No murmurs present (Cardio) RHYTHM: regular rhythm HEART SOUNDS: S1 normal heart sound present and S2 normal heart sound present GI: COMMON NORMALS: Normal to inspection, nondistended, normoactive bowel sounds present, Soft to palpation and non-tender PALPATION: Yes Soft to palpation Extremity: COMMON NORMALS: no joint enlargement and no pedal edema Neuro: COMMON NORMALS: moves all extremities SENSORIUM/ORIENTATION: Yes oriented to person, No oriented to place and Yes oriented to time Skin: COMMON NORMALS: no rashes or lesions noted GENERAL SKIN EXAM: no rashes or lesions noted Urinary Catheter Management^: Ivory: Cath Placed During This Visit: yes Reason for Continuing Indwelling Catheter: Accurate Measurement of Urinary Output in Critically Ill Patients Urinary Catheter Date of Insertion: 09/08/20 Urinary Catheter Time of Insertion: 11:48 Data : 09/11/20 03:43 09/11/20 03:43 Micro: Microbiology 09/09/20 17:30 Gram Stain - Final Sputum - Endotracheal Tube Aspirate Sputum Culture - Preliminary 09/09/20 11:40 Urine Culture - Final Urine Catheterized 09/09/20 19:00 Urine Culture - Preliminary Urine,Clean Catch 09/09/20 03:55 Blood Culture - Preliminary Blood NEGATIVE TO DATE 09/09/20 03:55 Blood Culture - Preliminary Blood NEGATIVE TO DATE A&P Assessment and plan (1) Acute respiratory failure with hypoxia: Appears to be gradually improving. FiO2 requirement down to 50%. He is less restless. Nursing is able to continue weaning down sedation. Blood pressure is holding well. Febrile today. Further not unexpected with COVID-19. Otherwise possible superimposed bacterial pneumonia for which we will continue antibiotics at this time. Cultures so far without bacteremia unremarkable urine bacterial antigens. No organisms on sputum Gram stain. Repeat blood cultures as well as urine cultures unremarkable. Continue weaning ventilator support and sedation as tolerating. Continue tube feeds. D-dimer with improvement. Continue anticoagulation. CRP is down to 150. Discussed with pulmonology in detail. Discussed with his daughter. Status: Acute (2) Pneumonia due to 2019-nCoV: Completed remdesivir. Completed 2 doses of convalescent plasma. As above. Severe COVID-19 pneumonia with acute respiratory failure, ARDS. As above. Concern for additional superimposed bacterial infection. CRP and D-dimer appear to show improvement. Continue anticoagulation. Thrombocytopenia stabilized. No sign of DIC. Status: Acute (3) Acute hyponatremia: Sodium stabilized and decreased to bit at 137. Continue infusions with f luid substituted for D5W. Monitor sodium. Status: Acute (4) Left atrial mass: Not visualized on limited repeat echo, however, poor technical quality. Will still need additional assessment. Discussed possibility of thrombus given renal scattered small hypodensities, several also noted in the liver cannot exclude embolic etiology. Continue anticoagulation. Status: Acute (5) Troponin level elevated: Discussed with family possible non-STEMI, versus type II [place] with demand ischemia. Continue aspirin. Beta-akilah may be resumed if blood pressure is stable. Would benefit from additional assessment once condition is improving. Status: Acute Additional A&P Information Thrombocytopenia: Stabilized, appears to be improving. Platelets up to 107,000 today. Suspect secondary to sepsis. Continue treatment of underlying condition. Does not appear to be in DIC. Microcytic anemia, thrombocytopenia lymphopenia likely related to viral pneumonia on peripheral smear. Low likelihood of HIT by 4 T score. No hemolysis by chemistries. Low plasmic score risk for TTP. Turbid urine: No evidence of UTI. Microscopic hematuria. Discussed with his . Difficult to say the etiology at this time Ivory catheter placement. Also discussed noted multiple renal hypodensities that could not be further characterized on CT on 09/07. Again cannot exclude embolic shower from possible left atrial VTE or lesion. No gross hematuria. For now continue anticoagulation. Scattered renal hypodensities Several liver hypodensities too small to characterize on CT D-dimer elevated. Improving. Active PE ruled out with CTA PE protocol on admis chino. Possibly due to worsening Covid 19 infection. Possibility of microthrombi disease. Possibility also of other foci of VTE, including the unidentified area in left atrium. Possibility of NSTEMI. As above. Possible superimposed bacterial pneumonia. No growth on culture so far. Continue. Antibiotics with Zosyn, doxycycline. MRSA PCR negative, urine Legionella and bacterial antigen negative. Hypertension: Close to goal. Continue to monitor blood pressures. Blood pressure at goal for now of medications. Iron panel consistent with several iron deficiency anemia. On oral iron supple mentation. Discussed his condition, assessment and plan with his who is agreeable with present plan, with all questions answered. Attestations 2 Medical Necessity Statement*: Continue admission for assessment management of respiratory failure, severe COVID-19 infection. Critical Care Time: 35 minutes critical care time spent on assessment management of respiratory failure, requiring mechanical ventilator support, evaluation of hemodynamic, volume status, antibiotics, steroids, anticoagulation. 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
[2020-09-11] MEDS: atorvastatin 40 mg Tablet PO (20:16)
[2020-09-12] VITALS (70 sets, daily range): BP systolic 85–153; BP diastolic 53–89; PULSE 70–91; RESP 18–33; TEMP 36.9–39; O2SAT 79–96
[2020-09-12] MEDS: ipratropium-albuterol 3 mL Neb INHALATION ×7 (00:08→23:58)
[2020-09-12] MEDS: dexmedetomidine 400 MCG in sodium chloride 0.9% (100 ml) 100 ML 25.4 MCG IV ×4 (00:09→21:28)
[2020-09-12] MEDS: propofol 1,000 MG/100 ML INJ 26.3 MG IV ×3 (00:18→21:13)
[2020-09-12] MEDS: famotidine 20 mg/2 mL INJ IVP ×2 (02:46→13:04)
[2020-09-12 06:25] LABS: Basophils % 0.1 %; Eosinophils # 0.1 10^3/uL (0.0-0.8); Eosinophils % 0.7 %; Hemoglobin 12.4 g/dL (11.7-16.6); Lymphocytes # 0.2 10^3/uL (0.8-4.8); Lymphocytes % 3.6 %; Mean Corpuscular HGB Conc 33.5 g/dL (30.0-36.0); Mean Corpuscular Hemoglobin 33.2 pg (28.0-34.0); Mean Corpuscular Volume 98.9 fL (80-94); Mean Platelet Volume 10.7 fL (7.4-10.4); Monocytes # 0.1 10^3/uL (0.2-0.9); Monocytes % 1.6 %; Neutrophils # 6.21 10^3/uL (1.8-7.7); Neutrophils % 93.1 %; Nucleated Red Blood Cells % 0 %; Platelet Count 111 10^3/cmm (130-400); Red Blood Count 3.74 10^6/uL (4.1-5.3); Red Cell Distribution Width 12.4 % (12.1-15.1); White Blood Count 6.7 10^3/uL (4.0-10.0)
[2020-09-12 06:44] LABS: D Dimer 7.76 ug/mIFEU (0-0.59)
--- NOTE | 2020-09-12 06:48 | PC.NURSE ---
[facility] 1900- Patient on VC-AC mode at TV 500, Rate of 18, FiO2 50%, PEEP of 8. Precedex at 0.1 mcg/kg/hour, propofol at 45 mcg/kg/min, and fentanyl at 125 mcg/hour.
[2020-09-12 06:49] LABS: Alanine Aminotransferase 38 U/L (0-41); Albumin Level 2.7 g/dL (3.5-5.2); Alkaline Phosphatase 147 IU/L (40-130); Anion Gap 12.5 (5-19); Aspartate Amino Transferase 47 U/L (0-40); Blood Urea Nitrogen 31 mg/dL (8-23); C Reactive Protein 102.5 mg/L (0.0-4.9); Calcium 7.8 mg/dL (8.5-10.5); Carbon Dioxide 24 mmol/L (22-29); Chloride 103 mmol/L (98-107); Globulin 3.1 g/dL (1.3-4.6); Glomerular Filtration Rate 83.4 mL/min (90-130); Glucose 123 mg/dL (65-115); Osmolality Calculated 288 mOsm/kg (285-295); Potassium 4.5 mmol/L (3.5-5.1); Sodium 135 mmol/L (136-145); Total Bilirubin 0.6 mg/dL (0.15-1.2); Total Protein 5.8 g/dL (6.6-8.7)
--- NOTE | 2020-09-12 07:00 | PC.NURSE ---
Report received from TY Hou. Pt struggling with O2 needs. RT notified. O2 sats 81%, laboring, accessory muscle use noted.
--- NOTE | 2020-09-12 07:13 | PC.NURSE ---
BATH Patient bathed around 0600 and began to desat to low 80s. Respiratory notified and told RN to turn patient to his other side. Patient turned to other side and oxygen saturation continues to be in low 80s with 100% FiO2. Respiratory notified again and reports they will come to the floor.
--- NOTE | 2020-09-12 07:15 | PC.NURSE ---
SHIFT SUMMARY 0715- Patient had 2875 mL urine output last night. Ventilator settings remain the same. Patient had uneventful shift until 0600 bath. See eligio note. Precedex at 0.1 mcg/kg/hour, fentanyl is currently turned up to 150 mcg/hour, and propofol at 50 mcg/kg/min. Patient remains with an O2 sat of 82% on 100%, respiratory just reported to room, day shift RN in room. Report given to TY Rodrigues.
[2020-09-12] MEDS: midazolam 1 mg/mL INJ 2 mL 2 MG IVP ×3 (07:26→18:14)
--- NOTE | 2020-09-12 07:35 | PC.NURSE ---
Addendum entered by Lilia Fonseca RN 09/12/20 14:22: Fentanyl gtt at 150mcg/hr , Propofol at 50mcg/kg/min. Original Note: RT increased FIO2 to 100%, Versed IVP admin, Precedex gtt increased to 1.3 mcg/kg/hr. Attempted to reach Dr Barber x2, VM left once. Pt still has labored breathing but slight improvement noted.
[2020-09-12] MEDS: budesonide 0.5 mg/2 mL Neb INHALATION ×2 (07:37→20:09)
--- NOTE | 2020-09-12 07:45 | XR_ITS ---
WS: [id number] Portable AP upright chest, 09/12/2020 Clinical Data: hypoxia Comparison: Portable chest, 09/11/2020 Findings: The endotracheal tube and nasal gastric tube remain in good position. The bilateral lung op acities have not changed. There are monitor leads on the chest wall. XR/XR chest 1V portable [id number] Impression: 1. No change in bilateral lung opacities. 2. No change in endotracheal tube and nasogastric tube.
[2020-09-12] MEDS: propofol 1,000 MG/100 ML INJ 29.3 MG IV ×2 (08:26→12:18)
[2020-09-12] MEDS: FUROsemide 10 mg/mL SDV 2mL 20 MG IVP (08:26)
--- NOTE | 2020-09-12 08:50 | DCPLANNER ---
PG 2 OF IM REVIEWED WITH PT'S SPOUSE; SAGE @ [phone]. NO QUESTIONS, COPY WILL BE SENT INTO THE ROOM AGREED.
[2020-09-12] MEDS: propranolol 40 mg Tablet PO ×2 (09:19→19:02)
[2020-09-12] MEDS: aspirin 81 mg EC Tablet PO (09:19)
[2020-09-12] MEDS: zinc gluconate 50 mg Tablet PO (09:20)
[2020-09-12] MEDS: enoxaparin 100 mg/mL Syringe SUBCUT ×2 (09:20→22:48)
[2020-09-12] MEDS: ascorbic acid 500 mg Tablet 1000 MG PO ×2 (09:20→19:02)
[2020-09-12] MEDS: doxycycline 100 mg Tablet PO (09:22)
--- NOTE | 2020-09-12 09:39 | PC.RESP ---
DR KLINE at bedside.
[2020-09-12] MEDS: haloperidol inj 5 mg/mL INJ 1 mL IM (09:56)
--- NOTE | 2020-09-12 10:15 | PC.NURSE ---
Daughter, Letty, called for update. Discussed with her his labored breathing that started earlier this am, versed admin, Sedation adjusted. Dr at bedside, adjusted vent settings. he is not so labored now and his O2 sats 91%.
[2020-09-12] MEDS: acetaminophen 325 mg Tablet 650 MG PO (12:33)
[2020-09-12] MEDS: dexamethasone 4 mg/mL INJ 6 MG IVP (13:05)
--- NOTE | 2020-09-12 13:06 | PM.PN ---
Subjective Subjective: Interval history: The patient was seen and examined this morning. Overnight, the patient became restless, tachypneic and needed to be put back on 100% FiO2 for adequate oxygenation. When the patient was put on pressure support ventilation with pressure support of only 5, the patient continues to have high tidal volume. She he is currently sedated with propofol, fentanyl and Precedex. He is unable to communicate or follow any commands at this time. Chest x-ray this morning revealed lower lung volume, the infiltrate was similar to before. Medications: Reviewed: Yes Vitals/I&O/Wt Last Vital Signs Temp 99 F 09/12/20 07:00 Pulse 87 09/12/20 11:39 Resp 23 H 09/12/20 11:43 BP 115/69 09/12/20 11:00 Pulse Ox 90 09/12/20 11:39 09/11/20 09/12/20 09/12/20 22:59 06:59 14:59 Intake Total 1494.960 / 2309.247 394.35 / 2703.597 619.385 / 619.385 Output Total 3025 / 3025 375 / 3400 175 / 175 Balance -1530.040 / -715.753 19.35 / -696.403 444.385 / 444.385 Weight last 48 hrs Weight 198 lb 14.4 oz Weight 197 lb 4.8 oz Physical Exam Narrative: EXAM NARRATIVE: General: The patient is intubated and sedated Respiratory: Auscultation: Crackles at bilateral lung bases, no wheezing or rhonchi Cardiovascular: Regular rate and rhythm, S1-S2 present, no murmur, no peripheral edema. Abdomen: Soft, nondistended, positive bowel sound Musculoskeletal: No obvious joint deformity Skin: No rash Neuro: Sedated, not responsive Urinary Catheter Management^: Ivory: Cath Placed During This Visit: yes Reason for Continuing Indwelling Catheter: Accurate Measurement of Urinary Output in Critically Ill Patients Urinary Catheter Date of Insertion: 09/08/20 Urinary Catheter Time of Insertion: 11:48 Data : 09/12/20 04:56 09/12/20 04:56 Micro: Microbiology 09/09/20 19:00 Urine Culture - Final Urine,Clean Catch 09/09/20 17:30 Gram Stain - Final Sputum - Endotracheal Tube Aspirate Sputum Culture - Preliminary 09/09/20 11:40 Urine Culture - Final Urine Catheterized Attestation for Other Data: I personally reviewed and interpreted the following: Other data: I have reviewed the patient's laboratory, microbiologic and radiologic data. The chest x-ray looks similar to before. There is possibly low lung volume. No significant leukocytosis or any other organ dysfunction. The inflammatory markers are slowly coming down. A&P Assessment and plan (1) Acute respiratory failure with hypoxia: The patient was on 50% oxygen yesterday unfortunately this morning he is on 100%. I believe because of ventilator asynchrony the patient likely lost his functional residual capacity leading to hypoxia. There is no worsening of the chest infiltrate. The patient is already anticoagulated with full dose Lovenox. Unfortunately, the patient continues to have very high tidal volume and does not have any mental status. The neuromechanical dissociation is not uncommon in patients with ARDS. I am going to start the patient on Seroquel with the hope that his sedation requirement will come down and will be able to control his breathing better. However, if this is not successful the patient might need to be paralyzed for short-term. The patient is getting Lasix with good urine output and his input output is mildly negative. We will continue with the supportive treatment. The patient's mental status is likely to be a challenge in the future. Status: Acute (2) Pneumonia due to 2018-nCoV: The patient is on dexamethasone, he has completed a course of remdesivir and has received convalescent plasma. His inflammatory markers are coming down. There is no evidence of organ dysfunction. We will continue the supportive therapy. 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
--- NOTE | 2020-09-12 13:40 | PC.NURSE ---
Labored breathing with accessory muscle use noted again. Pt febrile. Acetaminophen admin per OG O2 sats 84%. Suctioning provided, Versed IV admin.. RT notified, in room working with pt. Sedation: propofol and precedex increased. Tried quite darkened room, then tried music. O2 sats at 87-88%
[2020-09-12] MEDS: quetiapine 25 mg Tablet PO (14:01)
[2020-09-12] MEDS: dexmedetomidine 400 MCG in sodium chloride 0.9% (100 ml) 100 ML 38 MCG IV ×2 (14:03→17:54)
[2020-09-12] MEDS: propofol 1,000 MG/100 ML INJ 35.1 MG IV (15:38)
[2020-09-12 16:27] LABS: ABG PCO2 31.4 mmHg (35-45); ABG PH Result 7.51 (7.35-7.45); Arterial Blood Gas Hematocrit 43.1 % (42-52); Base Excess ABG 2.9 mmol/L (-2.0-2.0); Blood Gas Allen Test Pos; Blood Gas Operator Identificat MONRO; Blood Gas Sample Site Brachial, left; Blood Gas Sample Type Arterial; HCO3 ABG 25.2 mmol/L (22-26); Oxygen Device VENT; PO2 ABG 56.4 mmHg (80.0-100.0)
[2020-09-12 16:56] LABS: Creatine Phosphokinase 70 U/L (39-308)
[2020-09-12] MEDS: propofol 1,000 MG/100 ML INJ 43.9 MG IV (18:08)
--- NOTE | 2020-09-12 18:09 | PC.NURSE ---
Train of four: facial nerve right 4/4. Setting of 4. Pre paralytic
[2020-09-12] MEDS: rocuronium 10 mg/mL INJ 5mL 80 MG IV ×2 (18:25→19:18)
[2020-09-12] MEDS: cisatracurium 100 MG in sodium chloride 0.9% 50 ML IV (18:28)
--- NOTE | 2020-09-12 18:34 | PC.NURSE ---
1800:Dr Barber notified that BIS was 74, it needed at least 60 to paralyze him, he had an order for Versed 2 mg q 4 hours, next dose can be given at 1900, can it be given early now to sedate himfor paralytic. Yes give it to him. 1819: BIS 46-60. Rocuronium given . Nimbex started. 1829: BIS 46, TO$ 4/4, setting of 6. O2 sats dropped to 78%. RT remains at bedside. 1834: Dr Barber notified about O2 sats. to just keep pt paralyzed.
--- NOTE | 2020-09-12 18:40 | XRR_ITS ---
PROCEDURE INFORMATION: Exam: XR Chest, 1 View Exam date and time: 09/12/2020 6:48 PM Age: 70 years old Clinical indication: Other: Hypoxia TECHNIQUE: Imaging protocol: XR of the chest Views: 1 view. COMPARISON: CR XR chest 1V portable [id number] 09/12/2020 8:10 AM FINDINGS: Tubes, catheters and devices: Endotracheal tube 3.5 cm above the marcos. NG tube extends into the stomach. Lungs: Patchy interstitial densities seen in the bilateral lower lobes. These findings have decreased since prior examination. Pleural spaces: Unremarkable. No pleural effusion. No pneumothorax. Heart/Mediastinum: Unremarkable. No cardiomegaly. Bones/joints: Unremarkable. XR/XR chest 1V portable [id number] IMPRESSION: 1. Bilateral lower lobe Interstitial lung densities decreased since prior 2. Endotracheal tube is above the marcos. 3. NG tube is in the stomach
--- NOTE | 2020-09-12 18:58 | PC.NURSE ---
TOF: 4/4, setting 6. DR Barber: increase Niimbex to 2mcg/kg/min and Rocuroinium 80 mg IV orderd. Nimbex increased as ordered. BIS 60
[2020-09-12] MEDS: linezolid premix 600 MG/300 ML PREMIX 300 MG IV (19:01)
[2020-09-12] MEDS: guaiFENesin 600 mg Tablet PO (19:02)
--- NOTE | 2020-09-12 19:13 | P.PN_ITS ---
Subjective Subjective: Interval history: Intubated, sedated. Today reported required increasing sedation due to increase tidal volumes, overbreathing the vent, with some restlessness. Vitals/I&O/Wt Last Vital Signs Temp 101.7 F H 09/12/20 14:00 Pulse 87 09/12/20 15:32 Resp 26 H 09/12/20 18:52 BP 108/62 09/12/20 14:30 Pulse Ox 89 L 09/12/20 15:32 09/12/20 09/12/20 09/12/20 06:59 14:59 22:59 Intake Total 394.35 / 2703.597 841.475 / 841.475 374.008 / 1215.483 Output Total 375 / 3400 1275 / 1275 Balance 19.35 / -696.403 -433.525 / -433.525 374.008 / -59.517 Weight last 48 hrs Weight 90.22 kg Weight 89.494 kg Physical Exam Const: COMMON NORMALS: no acute distress GENERAL APPEARANCE: comfortable and anxious ORIENTATION/CONSCIOUSNESS: Yes awake, Yes oriented to person and Yes oriented to time; not oriented to place OTHER: Intubated, sedated. HENMT: COMMON NORMALS: oropharynx normal Eye: OTHER: Pupils round and symmetrical Neck/C-Spine: COMMON NORMALS: no JVD Resp: COMMON NORMALS: normal respiratory effort and clear to auscultation bilaterally AUSCULTATION: clear to auscultation bilaterally and crackles (Minimal crackles at bases.) OTHER: overbreathing the ventilator. Tidal volumes ~700 Cardio: COMMON NORMALS: no JVD, regular rhythm, S1 normal heart sound present, S2 normal heart sound present and No murmurs present (Cardio) RHYTHM: regular rhythm HEART SOUNDS: S1 normal heart sound present and S2 normal heart sound present GI: COMMON NORMALS: Normal to inspection, nondistended, normoactive bowel sounds present, Soft to palpation and non-tender PALPATION: Yes Soft to palpation Extremity: COMMON NORMALS: no joint enlargement and no pedal edema Neuro: COMMON NORMALS: moves all extremities SENSORIUM/ORIENTATION: Yes oriented to person, No oriented to place and Yes oriented to time Skin: COMMON NORMALS: no rashes or lesions noted GENERAL SKIN EXAM: no rashes or lesions noted Urinary Catheter Management^: Ivory: Cath Placed During This Visit: yes Reason for Continuing Indwelling Catheter: Accurate Measurement of Urinary Output in Critically Ill Patients Urinary Catheter Date of Insertion: 09/08/20 Urinary Catheter Time of Insertion: 11:48 Data : 09/12/20 04:56 09/12/20 04:56 Micro: Microbiology 09/09/20 17:30 Gram Stain - Final Sputum - Endotracheal Tube Aspirate Sputum Culture - Final 09/09/20 19:00 Urine Culture - Final Urine,Clean Catch A&P Assessment and plan (1) Acute respiratory failure with hypoxia: This morning noted with worsening saturations, requiring increasing FiO2, has been fluctuating between requiring 80-100%. PEEP increased to 10. Through the day has been some progressive worsening in her saturation. Discussed with pulmonology and with his . They are agreeable to proceed with paralyzing. We also changed doxycycline to linezolid. Reculture endotracheal aspirate. He is given recurrent embolus, and started on cisatracurium infusion. In the process saturation noted 82%. PEEP up to 12. 100% FiO2. Repeat chest x-ray with similar bilateral infiltrates. Perhaps minimally more haziness in the left lower lobe. He is currently being paralyzed. Updated his again on his condition. Saturations have been difficult to raise. In case does not respond to p.o. alone, may need to proceed to proning. In the meantime also once paralyzed, requesting also for chest PT, albuterol, Mucomyst. We will also request elective manner, B-D glucan. Empirically will start on voriconazole. Discussed also with his obtaining a central line and she is in agreement. Given decline in his condition, his family may come and visit him. Updated also overnight hospitalist in case of further developments. Status: Acute (2) Pneumonia due to 2019-nCoV: Completed remdesivir. Completed 2 doses of convalescent plasma. As above. Severe COVID-19 pneumonia with acute respiratory failure, ARDS. As above. Concern for additional superimposed bacterial infection. CRP and D-dimer appear to show improvement. Continue anticoagulation. Thrombocytopenia stabilized. No sign of DIC. Status: Acute (3) Acute hyponatremia: Na 135. Continue infusions with fluid substituted for D5W. Monitor so dium. Status: Acute (4) Left atrial mass: Not visualized on limited repeat echo, however, poor technical quality. Will still need additional assessment. Discussed possibility of thrombus given renal scattered small hypodensities, several also noted in the liver cannot exclude embolic etiology. Continue anticoagulation. Status: Acute (5) Troponin level elevated: Discussed with family possible non-STEMI, versus type II LA with demand ischemia. Continue aspirin. Beta-akilah may be resumed if blood pressure is stable. Would benefit from additional assessment once condition is improving. Status: Acute Additional A&P Information Thrombocytopenia: Stabilized, appears to be improving. Suspect secondary to sepsis. Continue treatment of underlying condition. Does not appear to be in DIC. Microcytic anemia, thrombocytopenia lymphopenia likely related to viral pneumonia on peripheral smear. Low likelihood of HIT by 4 T score. No hemolysis by chemistries. Low plasmic score risk for TTP. Turbid urine: No evidence of UTI. Has been having hematuria. Obtain urine culture. Bladder scan assessed, no obstruction. Ivory draining well. Discussed with his . Difficult to say the etiology at this time Ivory catheter placement. Also discussed noted multiple renal hypodensities that could not be further characterized on CT on 09/07. Again cannot exclude embolic shower from possible left atrial VTE or lesion. For now continue anticoagulation. Scattered renal hypodensities Several liver hypodensities too small to characterize on CT D-dimer elevated. Improving. Active PE ruled out with CTA PE protocol on admission. Possibly due to worsening Covid 19 infection. Possibility of microthrombi disease. Possibility also of other foci of VTE, including the unidentified area in left atrium. Possibility of NSTEMI. As above. Possible superimposed bacterial pneumonia. No growth on culture so far. Continue. Antibiotics with Zosyn, linezolid. MRSA PCR negative, urine Legionella and bacterial antigen negative. Hypertension: Close to goal. Continue to monitor blood pressures. Iron panel consistent with several iron deficiency anemia. On oral iron supplementation. Attestations Medical Necessity Statement*: Continue admission for assessment management of respiratory failure, severe COVID-19 pneumonia. 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
--- NOTE | 2020-09-12 19:40 | PC.NURSE ---
Report given to TY Hou
--- NOTE | 2020-09-12 19:50 | PC.NURSE ---
Shift summary: Pt intubated, sedated at beginning of shift. He had labored breath with accessory muscle use frequently throughout the shift. At times his sO2 sats would drop in low 80's. Versed IV admin seemed to help, O2 sats would get back up above 87%, he would still have work of breathing but not as extreme as before. Haldol tried, no significant changes in breathing patter. He has pink stanley sputum, which he coughs occasionally.Lasix admin, 1250 ml of urine output as of 1400. urine is dark obdulio with hematuria noted. bladder scan done due to urine color, only 32ml. Dr Barber and Dr Jiménez spoken to several times about pt's condition today, it was decided he needed to be paralyzed. Rocuronium given when his BIS was at an appropriate level, then Nimbex Iv started. His sats dropped to 78-82, had difficulty getting it to improve. Sedation adjusted, Nimbex rate increased, then another dose of Rocuronium admin,.. RT ambu bagged him, O2 sats finally up to 90, vent settings adjusted. TOF and BIS at bedside.
--- NOTE | 2020-09-12 20:13 | XRR_ITS ---
PROCEDURE INFORMATION: Exam: XR Chest, 1 View Exam date and time: 09/12/2020 8:25 PM Age: 70 years old Clinical indication: Device placement; Other: Central line placement TECHNIQUE: Imaging protocol: XR of the chest Views: 1 view. COMPARISON: CR XR chest 1V portable [id number] 09/12/2020 6:57 PM FINDINGS: There is an endotracheal tube with tip at the level of the clavicles. A nasogastric tube traverses the esophagus with tip in the mid stomach. Central venous catheter tip is in the right atrium. Diffuse pulmonary infiltrates are unchanged. There is no pleural effusion or pneumothorax. The heart size is normal. XR/XR chest 1V portable [id number] IMPRESSION: 1. Various tubes and catheters as described. 2. No change of the pulmonary infiltrates.
[2020-09-12] MEDS: acetylcysteine 200 mg/mL SDV 4 mL INHALATION (21:30)
[2020-09-12] MEDS: cisatracurium 100 MG in sodium chloride 0.9% 50 ML 48.7 MG IV (22:30)
[2020-09-12 23:06] LABS: ABG PCO2 49.8 mmHg (35-45); ABG PH Result 7.33 (7.35-7.45); Arterial Blood Gas Hematocrit 40.6 % (42-52); Base Excess ABG -0.3 mmol/L (-2.0-2.0); Blood Gas Allen Test Pos; Blood Gas Sample Type Arterial; HCO3 ABG 26.3 mmol/L (22-26)
[2020-09-12 23:09] LABS: Blood Gas Operator Identificat HARKR; Blood Gas Sample Site Radial, left; Blood Gas Tidal Volume 0.52; Oxygen Device VENT
[2020-09-13] VITALS (88 sets, daily range): BP systolic 97–135; BP diastolic 57–76; PULSE 81–98; RESP 22–25; TEMP 36.9–39; O2SAT 89–96
[2020-09-13] MEDS: atorvastatin 40 mg Tablet PO ×2 (00:29→21:17)
[2020-09-13] MEDS: cisatracurium 100 MG in sodium chloride 0.9% 50 ML 43.3 MG IV ×3 (00:36→17:01)
[2020-09-13] MEDS: famotidine 20 mg/2 mL INJ IVP ×2 (01:35→13:44)
[2020-09-13] MEDS: propofol 1,000 MG/100 ML INJ 20.5 MG IV (01:47)
[2020-09-13] MEDS: ipratropium-albuterol 3 mL Neb INHALATION ×6 (03:50→23:52)
[2020-09-13] MEDS: dexmedetomidine 400 MCG in sodium chloride 0.9% (100 ml) 100 ML 12.7 MCG IV (04:11)
[2020-09-13] MEDS: cisatracurium 100 MG in sodium chloride 0.9% 50 ML 54.1 MG IV ×3 (04:12→09:24)
[2020-09-13 05:50] LABS: Basophils % 0.3 %; Eosinophils # 0.1 10^3/uL (0.0-0.8); Eosinophils % 1.6 %; Hematocrit 38.2 % (42.0-52.0); Hemoglobin 12.8 g/dL (11.7-16.6); Lymphocytes # 0.1 10^3/uL (0.8-4.8); Lymphocytes % 1.9 %; Mean Corpuscular HGB Conc 33.5 g/dL (30.0-36.0); Mean Corpuscular Hemoglobin 34.1 pg (28.0-34.0); Mean Corpuscular Volume 101.9 fL (80-94); Mean Platelet Volume 10.9 fL (7.4-10.4); Monocytes # 0.1 10^3/uL (0.2-0.9); Monocytes % 1.2 %; Neutrophils # 6.51 10^3/uL (1.8-7.7); Neutrophils % 94.4 %; Nucleated Red Blood Cells % 0 %; Platelet Count 97 10^3/cmm (130-400); Red Blood Count 3.75 10^6/uL (4.1-5.3); Red Cell Distribution Width 12.6 % (12.1-15.1); White Blood Count 6.9 10^3/uL (4.0-10.0)
[2020-09-13 06:14] LABS: INR 1.31 (0.8-1.2)
[2020-09-13 06:15] LABS: Alanine Aminotransferase 40 U/L (0-41); Albumin Level 2.3 g/dL (3.5-5.2); Alkaline Phosphatase 140 IU/L (40-130); Aspartate Amino Transferase 44 U/L (0-40); Blood Urea Nitrogen 35 mg/dL (8-23); C Reactive Protein 281.6 mg/L (0.0-4.9); Calcium 7.5 mg/dL (8.5-10.5); Carbon Dioxide 25 mmol/L (22-29); Chloride 101 mmol/L (98-107); Globulin 3.3 g/dL (1.3-4.6); Glomerular Filtration Rate 83.4 mL/min (90-130); Glucose 126 mg/dL (65-115); Osmolality Calculated 292 mOsm/kg (285-295); Sodium 136 mmol/L (136-145); Total Bilirubin 0.6 mg/dL (0.15-1.2); Total Protein 5.6 g/dL (6.6-8.7)
--- NOTE | 2020-09-13 06:16 | PC.NURSE ---
ASSUMING CARE 1900- Patient mechanically ventilated and RT, RN and physician in room. Oxygen saturation only 81%, nimbex had just danial initiated and was at 0.3 mcg/kg/min. Dr. [place] ordered to turn nimbex up to 2.5 mcg/kg/min, then 5 mcg/kg/min although not within set MAR protocol to get patient paralyzed and oxygen saturation to increase. Additional 80 mg rocuronium pushed per Dr. Barber by Lilia, TY while this nurse speaking with family at nurses station. She reported this was the 2nd dose of rocuronium administered. Nurse noticed patient begin to increase his oxygen saturation. Dr. Jiménez on phone with Dr. Barber and with TO4 assessment, patient has 4/4 twitches at 6 milliamps to eyebrow, Dr. Jiménez gave orders to go up to 10 mcg/kg/min on nimbex. Patient increased to 10 mcg/kg/min at 2035. BIS at this time is 31, precedex decreased.
[2020-09-13 06:18] LABS: Partial Thromboplastin Time 39.1 SECONDS (23.9-36.7)
[2020-09-13 06:19] LABS: Fibrinogen 613 mg/dL (174-498)
[2020-09-13] MEDS: linezolid premix 600 MG/300 ML PREMIX 300 MG IV ×2 (06:22→17:49)
[2020-09-13 06:23] LABS: Anion Gap 14.8 (5-19); Potassium 4.8 mmol/L (3.5-5.1)
[2020-09-13 06:29] LABS: D Dimer 6.78 ug/mIFEU (0-0.59)
--- NOTE | 2020-09-13 06:32 | PC.NURSE ---
NIMBEX/TO4 2230- TO4 0/4 twitches, decreased to 9 mcg/kg/min 0036- TO4 0/4 twitches, decreased to 8 mcg/kg/min 0151- TO4 0/4 twitches, decreased to 7 mcg/kg/min 0245- TO4 0/4 twitches, decreased to 6 mcg/kg/min Nurse suspected something wrong with peripheral nerve stimulator. Batteries changed at 0330. 0330- TO4 4/4 twitches, increased to 7 mcg/kg/min 0345- TO4 4/4 twitches, increased to 8 mcg/kg/min 0412- TO4 4/4 twitches, increased to 9 mcg/kg/min 0439- TO4 4/4 twitches, increased to 10 mcg/kg/min 0512- TO4 2/4 twitches, rate remains at 10 mcg/kg/min Although issues with peripheral nerve stimulator, since additional dose of rocuronium given by day shift RN and nimbex turned to 10 mcg/kg/min per Dr. Jiménez, patient has not been breathing over the ventilator, oxygen saturations had increased to 90% and patient adequately sedated during this time also. VC-AC mode entire night, TV 480, PEEP 14, Rate of 20-23 (respiratory increased), and FiO2 at 100%.
--- NOTE | 2020-09-13 06:39 | PC.NURSE ---
BIS/SEDATION No issues with patient not being adequately sedated. Nurse has titrated down on sedation medications throughout the night, current BIS 42-46. See previous BIS documentation on CC/IC Flowsheet and sedation titrations. Wean off precedex per Dr. Barber. Precedex weaned off overnight and patient currently on propofol at 30 mcg/kg/min and fentanyl at 100 mcg/hour.
--- NOTE | 2020-09-13 06:42 | PC.NURSE ---
LEVOPHED Patients MAP had sustained trend of about 58-60. Per Dr. Barber, levophed order to be put in so if needed, no delays. Levophed order put in. Levophed started at 2136 and has been on 2 mcg/min and maintained patients MAP greater than 65.
--- NOTE | 2020-09-13 06:43 | PC.NURSE ---
SHIFT SUMMARY See previous notes regarding nimbex/TO4 and BIS/sedation, and levophed. 1,000 mL red brown urine this shift. Patient met TO4 criteria of 2/4 twitches at 0512, so according to nimbex protocol, TO4 not to be assessed again until 0700 hour. Patient does not tolerate turns well. Per Dr. Barber, family to visit since patient was unstable for such a long period of time. Family at bedside and labs, plan of care gone over with , Lalitha, and daughter, Letty. Ventilator settings remain the same, see assuming care note. Central line placement last night also with the consent of patients . Procedure done by Dr. Peoples from ED with no complications and xray confirmed placement of line. Patients family able to come visit today also at any time per Dr. Barber due to critical and fragile state of patient at this time.
[2020-09-13] MEDS: propofol 1,000 MG/100 ML INJ 17.6 MG IV ×3 (06:57→17:49)
[2020-09-13] MEDS: budesonide 0.5 mg/2 mL Neb INHALATION ×2 (07:23→19:47)
[2020-09-13 07:43] LABS: Slide Review Slide Review Perform
[2020-09-13] MEDS: aspirin 81 mg EC Tablet PO (08:53)
[2020-09-13] MEDS: ascorbic acid 500 mg Tablet 1000 MG PO ×2 (08:53→17:50)
[2020-09-13] MEDS: zinc gluconate 50 mg Tablet PO (08:53)
[2020-09-13] MEDS: enoxaparin 100 mg/mL Syringe SUBCUT ×2 (08:53→21:17)
[2020-09-13] MEDS: guaiFENesin 600 mg Tablet PO ×2 (08:54→17:50)
[2020-09-13] MEDS: propranolol 40 mg Tablet PO ×2 (08:54→17:50)
--- NOTE | 2020-09-13 10:30 | ECG_ITS ---
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 Measurements Intervals Smilax Rate: 92 P: 43 ME: 168 QRS: -12 QRSD: 75 T: 69 QT: 336 QTc: 417 Interpretive Statements SINUS RHYTHM LOW QRS VOLTAGE IN PRECORDIAL LEADS [QRS DEFLECTION < 1.0 mV IN CHEST LEADS] NONSPECIFIC T-WAVE ABNORMALITY INTERPRETATION BASED ON A DEFAULT AGE OF 40 YEARS Compared to ECG 09/09/2020 09:37:16 Low QRS voltage now present T-wave abnormality now present Intraventricular conduction delay no longer present Electronically Signed On 09-17-2020 11:53:26 TELEPHONE MECHANIC by Leighann Saba M.D. [email or web address]
--- NOTE | 2020-09-13 12:23 | P.PN_ITS ---
Subjective Subjective: Interval history: Intubated, sedated. Vitals/I&O/Wt Last Vital Signs Temp 99.7 F H 09/13/20 07:00 Pulse 89 09/13/20 11:01 Resp 22 H 09/13/20 11:01 BP 121/74 09/13/20 10:15 Pulse Ox 92 09/13/20 11:01 09/12/20 09/13/20 09/13/20 22:59 06:59 14:59 Intake Total 2141.622 / 2983.097 1074.948 / 4058.045 603.74 / 603.74 Output Total 1000 / 2275 Balance 2141.622 / 1708.097 74.948 / 1783.045 603.74 / 603.74 Weight last 48 hrs Weight 89.993 kg Weight 90.22 kg Physical Exam Const: COMMON NORMALS: no acute distress GENERAL APPEARANCE: comfortable and anxious ORIENTATION/CONSCIOUSNESS: Yes awake, Yes oriented to person and Yes oriented to time; not oriented to place OTHER: Intubated, sedated, paralyzed. HENMT: COMMON NORMALS: oropharynx normal Eye: OTHER: Pupils round and symmetrical Neck/C-Spine: COMMON NORMALS: no JVD Resp: COMMON NORMALS: normal respiratory effort and clear to auscultation bilaterally AUSCULTATION: clear to auscultation bilaterally and no crackles Cardio: COMMON NORMALS: no JVD, regular rhythm, S1 normal heart sound present, S2 normal heart sound present and No murmurs present (Cardio) RHYTHM: regular rhythm HEART SOUNDS: S1 normal heart sound present and S2 normal heart sound present GI: COMMON NORMALS: Normal to inspection, nondistended, normoactive bowel sounds present, Soft to palpation and non-tender PALPATION: Yes Soft to palpation Extremity: COMMON NORMALS: no joint enlargement and no pedal edema Neuro: COMMON NORMALS: moves all extremities SENSORIUM/ORIENTATION: Yes oriented to person, No oriented to place and Yes oriented to time Skin: COMMON NORMALS: no rashes or lesions noted GENERAL SKIN EXAM: no ra shes or lesions noted Urinary Catheter Management^: Ivory: Cath Placed During This Visit: yes Reason for Continuing Indwelling Catheter: Accurate Measurement of Urinary Output in Critically Ill Patients Urinary Catheter Date of Insertion: 09/08/20 Urinary Catheter Time of Insertion: 11:48 Data : 09/13/20 04:08 09/13/20 04:08 Micro: Microbiology 09/13/20 01:50 Gram Stain - Final Sputum - Endotracheal Tube Aspirate 09/09/20 17:30 Gram Stain - Final Sputum - Endotracheal Tube Aspirate Sputum Culture - Final 09/09/20 19:00 Urine Culture - Final Urine,Clean Catch A&P Assessment and plan (1) Acute respiratory failure with hypoxia: Acute respiratory failure with hypoxia. ARDS. Severe COVID-19 pneumonia with possible superimposed bacterial pneumonia. Oxygen requirement is little better this morning. 80% FiO2, PEEP of 14, however, is working better with the ventilator. He is well sedated and paralyzed. Pressor requirement is coming down. Continue paralytic today. Chest PT, albuterol, mucomyst nebulization. Continue Decadron. Continue Zosyn, linezolid. Voriconazole. Nursing staff working on EKGs for QTC. Central line placed 09/12, right IJ. Intubated 09/09. Status: Acute (2) Pneumonia due to 2019-nCoV: CRP worse today up to 281. D-dimer continues to gradually trend down. Completed remdesivir. Completed 2 doses of convalescent plasma. As above. Severe COVID-19 pneumonia with acute respiratory failure, ARDS. As above. Possible superimposed bacterial infection. CRP and D-dimer appear to show improvement. Continue anticoagulation. Thrombocytopenia stabilized. No DIC. Status: Acute (3) Acute hyponatremia: Infusions with fluid substituted for D5W. Sodium appears to have stabilized so far. Monitor. Status: Acute (4) Left atrial mass: Not visualized on limited repeat echo, however, poor technical quality. W ill still need additional assessment. Discussed possibility of thrombus given renal scattered small hypodensities, several also noted in the liver cannot exclude embolic etiology. Continue anticoagulation. Status: Acute (5) Troponin level elevated: Discussed with family possible non-STEMI, versus type II IN with demand ischemia. Continue aspirin. Beta-akilah may be resumed if blood pressure is stable. Would benefit from additional assessment once condition is improving. Status: Acute Additional A&P Information Thrombocytopenia: Platelet level appears stabilized around 100. Today lab chloride 97. Monitor. Aspirin dose decreased. Suspect secondary to sepsis. Continue treatment of underlying condition. Does not appear to be in DIC. Microcytic anemia, thrombocytopenia lymphopenia likely related to viral pneumonia on peripheral smear. Low likelihood of HIT by 4 T score. No hemolysis by chemistries. Low plasmic score risk for TTP. Turbid urine: No evidence of UTI. Has been having hematuria. No growth on urine culture and repeat UA not suggestive of UTI. Bladder scan assessed, no obstruction. Ivory draining well. Difficult to say the etiology at this time, this could be from the Ivory catheter. We also discussed noted multiple renal hypodensities that could not be further characterized on CT on 09/07. Again cannot exclude embolic shower from possible left atrial VTE or lesion. For now continue anticoagulation. Scattered renal hypodensities Several liver hypodensities too small to characterize on CT D-dimer elevated. Improving. Active PE ruled out with CTA PE protocol on admission. Possibly due to worsening Covid 19 infection. Possibility of microthrombi disease. Possibility also of other foci of VTE, including the unidentified area in left atrium. Possibility of NSTEMI. As above. Possible superimposed bacterial pneumonia. No growth on culture so far. Continue. Antibiotics with Zosyn, linezolid. MRSA PCR negative, urine Legionella and bacterial antigen negative. Hypertension: last night hypotensive, weaning off pressor. Iron panel consistent with several iron deficiency anemia. Oral iron supplementation on hold. Discussed his condition and assessment and plan with his daughter today. Her and her mother were able to come visit him last night. Attestations Medical Necessity Statement*: Continue admission for assessment management of hypoxic respiratory failure, requiring mechanical ventilatory support, paralytic agents. Critical Care Time: 40 minutes critical care time spent on assessment management of immediately life-threatening issues including respiratory failure, severe COVID-19 infection, possible bacterial pneumonia, treatment with paralytics, hemodynamic support, management of pressors, review of anti- infective medications, cultures, anticoagulation. Discussed with nursing staff, family. Coding Level of Care Code Acute Ophthalmic Technician for [facility] Fwd Diagnoses Acute respiratory failure with hypoxia J96.01 Pneumonia due to 2019-nCoV U07.1; J12.89 Acute hyponatremia E87.1 Left atrial mass I51.89 Troponin level elevated R77.8
[2020-09-13] MEDS: dexamethasone 4 mg/mL INJ 6 MG IVP (13:44)
[2020-09-13] MEDS: acetaminophen 325 mg Tablet 650 MG PO ×2 (15:32→21:17)
--- NOTE | 2020-09-13 19:24 | PC.NURSE ---
0850 Verified with Faisal, pharmacist that propranolol can be crushed and put down OG tube. [address] Barber. Discussed labs, drips, vent settings, and plan of care. Orders to continue Nimbex today, work to ween O2. Looked at urine, hematuria clearing up, UA sent. Ok to give anticoagulation today. 15[address] Reported E[address] results to Dr. Barber. 1530 Treated elevated temp with Tylenol, reported to Dr. Barber
--- NOTE | 2020-09-13 19:33 | PC.NURSE ---
BIS TOF 0700 42 2/4 0800 44 2/4 0900 41 2/4 1000 43 2/4 1100 44 1/4 1200 42 2/4 1300 48 2/4 1400 45 2/4 1500 46 2/4 1600 44 2/4 1700 45 2/4 1800 44 2/4
[2020-09-13] MEDS: cisatracurium 100 MG in sodium chloride 0.9% 50 ML 27.1 MG IV (20:05)
[2020-09-13] MEDS: propofol 1,000 MG/100 ML INJ 11.7 MG IV (22:30)
--- NOTE | 2020-09-13 22:30 | ECG_ITS ---
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 Measurements Intervals [place] Rate: 90 P: 39 MA: 165 QRS: -15 QRSD: 81 T: 42 QT: 342 QTc: 420 Interpretive Statements SINUS RHYTHM NONSPECIFIC T-WAVE ABNORMALITY Compared to ECG 09/09/2020 09:37:16 T-wave abnormality now present Intraventricular conduction delay no longer present Electronically Signed On 09-17-2020 11:53:32 MERCHANDISE ADJUSTMENT CLERK by Leighann Saba M.D. [id number] f
[2020-09-14] VITALS (61 sets, daily range): BP systolic 98–181; BP diastolic 63–116; PULSE 73–88; RESP 20–26; TEMP 37.1–37.5; O2SAT 89–95; BMI 27.1
[2020-09-14] MEDS: cisatracurium 100 MG in sodium chloride 0.9% 50 ML 13.5 MG IV (00:56)
[2020-09-14] MEDS: famotidine 20 mg/2 mL INJ IVP ×2 (01:59→14:17)
[2020-09-14] MEDS: ipratropium-albuterol 3 mL Neb INHALATION ×6 (03:04→23:40)
[2020-09-14 03:20] LABS: ABG PCO2 44.9 mmHg (35-45); ABG PH Result 7.39 (7.35-7.45); Alveolar-Arterial Oxygen Gradi 54.3 mmHg (5-10); Arterial Blood Gas Hematocrit 41.7 % (42-52); Base Excess ABG 1.9 mmol/L (-2.0-2.0); Blood Gas Allen Test Pos; Blood Gas Sample Site Radial, right; Blood Gas Sample Type Arterial; Carboxyhemoglobin 0.8 %THgb (0.4-20.1); HCO3 ABG 27.3 mmol/L (22-26); Ionized Calcium Level - ABG 1.1 mmol/L (1.1-1.4); Methemoglobin 0.8 % (0.4-1.5); Oxygen Device VENT; Oxygen Saturation ABG 93.5; PO2 ABG 63.8 mmHg (80.0-100.0); Potassium Level - ABG 4.7 mmol/L (3.5-5.0); Total Hemoglobin 13.6 g/dL (14-18)
[2020-09-14 03:56] LABS: Basophils % 0.2 %; Hematocrit 37.4 % (42.0-52.0); Hemoglobin 12.2 g/dL (11.7-16.6); Lymphocytes # 0.2 10^3/uL (0.8-4.8); Lymphocytes % 2.4 %; Mean Corpuscular HGB Conc 32.6 g/dL (30.0-36.0); Mean Corpuscular Hemoglobin 33.2 pg (28.0-34.0); Mean Corpuscular Volume 101.6 fL (80-94); Mean Platelet Volume 11.5 fL (7.4-10.4); Monocytes # 0.1 10^3/uL (0.2-0.9); Monocytes % 1.4 %; Neutrophils # 6.26 10^3/uL (1.8-7.7); Neutrophils % 95.1 %; Nucleated Red Blood Cells % 0 %; Platelet Count 102 10^3/cmm (130-400); Red Blood Count 3.68 10^6/uL (4.1-5.3); Red Cell Distribution Width 12.8 % (12.1-15.1); White Blood Count 6.6 10^3/uL (4.0-10.0)
[2020-09-14 04:10] LABS: Alanine Aminotransferase 39 U/L (0-41); Albumin Level 2.1 g/dL (3.5-5.2); Alkaline Phosphatase 126 IU/L (40-130); Anion Gap 12.8 (5-19); Aspartate Amino Transferase 37 U/L (0-40); Blood Urea Nitrogen 40 mg/dL (8-23); C Reactive Protein 340.1 mg/L (0.0-4.9); Calcium 7.8 mg/dL (8.5-10.5); Carbon Dioxide 26 mmol/L (22-29); Chloride 100 mmol/L (98-107); Globulin 3.6 g/dL (1.3-4.6); Glomerular Filtration Rate 59.9 mL/min (90-130); Glucose 108 mg/dL (65-115); Osmolality Calculated 288 mOsm/kg (285-295); Potassium 4.8 mmol/L (3.5-5.1); Sodium 134 mmol/L (136-145); Total Bilirubin 0.5 mg/dL (0.15-1.2); Total Protein 5.7 g/dL (6.6-8.7)
--- NOTE | 2020-09-14 04:19 | PC.NURSE ---
NOTE REGARDING OUTPUT Nurse entered room and noted the catheter bag to be leaking. Urine covered the floor and was cleaned up. Measurement was unavailable, so it is estimated that 600 mL was output.
[2020-09-14 04:28] LABS: Slide Review Slide Review Perform
[2020-09-14] MEDS: linezolid premix 600 MG/300 ML PREMIX 300 MG IV (05:29)
[2020-09-14] MEDS: propofol 1,000 MG/100 ML INJ 11.7 MG IV (05:29)
--- NOTE | 2020-09-14 05:40 | PC.NURSE ---
Addendum entered by Nusrat Olivas RN 09/14/20 06:11: 06/ Original Note: Time/Train Of Four/BIS 2099/ 220 230/ 0000/ 0100/ 0200/ 0300/ 0400/ 0500/
--- NOTE | 2020-09-14 06:00 | XRR_ITS ---
PROCEDURE INFORMATION: Exam: XR Chest, 1 View Exam date and time: 09/14/2020 9:43 AM Age: 70 years old Clinical indication: Dyspnea; Additional info: Hypoxia TECHNIQUE: Imaging protocol: XR of the chest Views: 1 view. COMPARISON: CR XR chest 1V portable [id number] 09/12/2020 8:28 PM FINDINGS: Tubes, catheters and devices: Right IJ approach central line is in satisfactory position, with distal tip in the RA. Endotracheal tube is in satisfactory position. Feeding tube is in satisfactory position. Lungs: Persistent bilateral airspace opacities. No large pleural effusion or pneumothorax. Pleural spaces: See Lungs finding. Heart/Mediastinum: Stable cardiomediastinal silhouette. Bones/joints: No acute osseous injury identified. XR/XR chest 1V portable [id number] IMPRESSION: Persistent bilateral airspace opacities.
[2020-09-14] MEDS: budesonide 0.5 mg/2 mL Neb INHALATION ×2 (07:36→19:53)
--- NOTE | 2020-09-14 08:30 | PC.NURSE ---
TOF 2/4, setting 7. BIS 46 . Nimbex decreased to 3.7mcg/kg/min.
[2020-09-14] MEDS: aspirin 81 mg EC Tablet PO (08:31)
[2020-09-14] MEDS: zinc gluconate 50 mg Tablet PO (08:31)
[2020-09-14] MEDS: guaiFENesin 600 mg Tablet PO ×2 (08:31→18:06)
[2020-09-14] MEDS: propranolol 40 mg Tablet PO ×2 (08:31→18:06)
[2020-09-14] MEDS: ascorbic acid 500 mg Tablet 1000 MG PO ×2 (08:31→18:06)
--- NOTE | 2020-09-14 09:02 | CTR_ITS ---
PROCEDURE INFORMATION: Exam: CT Head Without Contrast Exam date and time: 09/14/2020 9:43 AM Age: 70 years old Clinical indication: Altered mental status/memory loss; Additional info: AMS, anticoagulation TECHNIQUE: Imaging protocol: Computed tomography of the head without contrast. Radiation optimization: All CT scans at this facility use at least one of these dose optimization techniques: automated exposure control; mA and/or kV adjustment per patient size (includes targeted exams where dose is matched to clinical indication); or iterative reconstruction. COMPARISON: No relevant prior studies available. RADIATION DOSE METRICS: Total DLP (mGy-cm): 898.56 FINDINGS: Brain: There is watershed infarcts in the right frontal and left parietal lobes, with local effacement of sulci. There is a small foci of decreased attenuation along the lateral aspect of the right temporal lobe and posterior aspect of the left cerebellar hemisphere, concerning for additional areas of infarction. No herniation, hemorrhage, mass effect or significant midline shift noted. No significant white matter abnormality seen. No intra or extra-axial fluid collection identified. Cerebral ventricles: No ventriculomegaly. Bones/joints: Unremarkable. No acute fracture. Paranasal sinuses: There is mucosal thickening of the ethmoid air cells and minimal opacification of the frontal and maxillary sinuses with air-fluid levels, suggestive of acute sinusitis. Mastoid air cells: Visualized mastoid air cells are well aerated. Soft tissues: There is minimal asymmetric prominence of the soft tissues in the left lateral frontoparietal region. 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 Possible additional smaller areas of ischemia in the lateral right temporal lobe and posterior left cerebellar hemisphere. Embolic disease should be considered. Radiation Dose CTDIVOL = (mGy): DLP = 898.56 (mGy-cm)
[2020-09-14] MEDS: enoxaparin 100 mg/mL Syringe SUBCUT ×2 (09:58→20:34)
[2020-09-14] MEDS: cisatracurium 100 MG in sodium chloride 0.9% 50 ML 20.6 MG IV (10:24)
--- NOTE | 2020-09-14 10:48 | P.PN_ITS ---
Subjective Subjective: Interval history: Covering for Dr. Jiménez on weekend for pulmonary follow up: Background: Alisa Hyatt is a 70 year old male who presented to the hospital on September 05 admitted for COVID 19 pneumonia, initially requiring 4L NC and later intubated 09/09/20 for mechanical ventilation. A chest x-ray obtained during admission revealed bilateral diffuse infiltrate.CTA of the chest ruled out PE but revealed bilateral groundglass opacities predominantly the peripheral distribution as well as bilateral pleural effusion. He received treatment with remdesivir, dexamethasone and broad-spectrum antibiotics and received 2 units of convalescent plasma. Chest x ray showed: Infiltrate is also more prominent in the left lung compared to the right. on 09/11/20, the patient became restless, tachypneic and needed to be put back on 100% FiO2 for adequate oxygenation. Today patient seen at bedside in VICU, paralyzed with nimbex 3.8 and sedated with propofol 15, fentanyl 100 MCG. Even before paralyzing patient mentation was not good for few days as per RN. CT head ordered to rule out any acute events. Yesterday Zosyn was changed to imipenem for spiking fevers. Labs and other investigations reviewed. Vitals/I&O/Wt Last Vital Signs Temp 99.0 F 09/14/20 05:00 Pulse 85 09/14/20 07:36 Resp 24 H 09/14/20 09:09 BP 141/81 09/14/20 05:00 Pulse Ox 90 09/14/20 07:36 09/13/20 09/14/20 09/14/20 22:59 06:59 14:59 Intake Total 1071.208 / 2061.158 638.964 / 2700.122 200.405 / 200.405 Output Total 400 / 700 950 / 1650 Balance 671.208 / 1361.158 -311.036 / 1050.122 200.405 / 200.405 Weight last 48 hrs Weight 199 lb 11.2 oz Weight 198 lb 6.4 oz Physical Exam Narrative: EXAM NARRATIVE: PHYSICAL EXAM: General: lying in bed, sedated and intubated. HEENT:NCAT, PERRLA, EOMI Neck: Supple Lungs: bilateral diffuse crackles Heart: s1/s2, RRR Abd: soft, NT, ND, BS + Normoactive Extremities: 1 + pedal pitting edema LOW PRESSURE BOILER TENDER: sedated and limited LOW PRESSURE BOILER TENDER exam possible. SKIN: no rash LDA: # CVC: Right IJ 09/12/2020 Urinary Catheter Management^: Ivory: Cath Placed During This Visit: yes Reason for Continuing Indwelling Catheter: Accurate Measurement of Urinary Output in Critically Ill Patients Urinary Catheter Date of Insertion: 09/08/20 Urinary Catheter Time of Insertion: 11:48 Data : 09/14/20 03:00 09/14/20 03:00 Micro: Microbiology 09/13/20 01:50 Gram Stain - Final Sputum - Endotracheal Tube Aspirate Sputum Culture - Preliminary 09/12/20 09:35 Urine Culture - Preliminary Urine Catheterized A&P Assessment and plan (1) AMS (altered mental status): Status: Acute Qualifiers: Altered mental status type: unspecified Qualified Code(s): R41.82 - Altered mental status, unspecified (2) Acute respiratory failure with hypoxia: Status: Acute (3) ARDS (adult respiratory distress syndrome): Status: Acute (4) Pneumonia due to 2019-nCoV: Status: Acute (5) Left atrial mass: Status: Acute (6) Sepsis: Status: Acute Qualifiers: Sepsis type: sepsis due to unspecified organism Sepsis acute organ dysfunction status: unspecified Qualified Code(s): A41.9 - Sepsis, unspecified organism Overall: 70-year-old male admitted to viral ICU for management of acute hypoxic respiratory failure secondary to ARDS due to COVID-19 pneumonia with possible superimposing bacterial infection on mechanical ventilatory support. #AMS-rule out CVA in view of CT abdomen pelvis showing liver and scattered renal hypodensities and echo showing? Left atrial mass VS sepsis related AMS #Acute respiratory failure with hypoxia due to ARDS due to COVID-19 pneumonia #Fever spikes ? Superimposing bacterial infection vs seratonin syndrome #Slightly worsening BUN -On VC 75%/500/20/10 PEEP-saturating 91% -ABG today morning 7.3 9/44/63/20 7/93% -S/p remdesivir, 2 units convalescent plasma transfusion -On DuoNeb scheduled nebulization and dexamethasone 6 mg daily -Hemodynamically stable-off pressors -CT head today to rule out thromboembolic CVA in view of multiple scattered renal and liver hypodensities and the presence of? Left atrial mass-currently on Lovenox -If CT head negative today-turn off paralytic tomorrow and taper sedation and do awakening trial -Worsening BUN, net +1 L over last 24 hours, albumin 2.1 -give albumin 1 dose & Lasix 40 mg 1 dose -Send blood culture, urine culture, procalcitonin- currently on linezolid/imipenem/voriconazole -recommended to change linezolid to vancomycin to prevent serotonin syndrome associated with linezolid and fentanyl interaction and monitor renal functions. Medical condition, labs, investigations, medications, counseling regarding medication compliance, side effects, importance of follow-up appointments, smoking-its adverse effects and importance of cessation and plan of care- everything explained in detail to the patient. Patient verbalized understanding and agreed with the plan of care. If symptoms worse informed patient to call 911 or go to nearest emergency room immediately. Patient verbalized understanding and agreed to do so Time spent speaking with the hospitalist, RN, patient family at bedside -45 minutes Reviewed medical records and summarized as above Reviewed medications in detail and adjusted as necessary Reviewed the labs in detail with the patient family and hospitalist covering the patient Attestations Medical Necessity Statement*: Acute hypoxic respiratory failure secondary to ARDS due to COVID-19 pneumonia requiring mechanical intubation and complicated by AMS and ventilatory asynchrony Time Spent in Patient Care: Greater than 35 minutes (>than 50% of time spent in counselling and/or direct pt care on unit) . Critical Care Time: Critical Care Time (min): 45 Coding Level of Care Code Established Pt Acute Technical Buyer for [facility] Fwd Patient Type Established History Comprehensive Exam Comprehensive Medical Decision Making High Complexity Diagnoses AMS (altered mental status) R41.82 Altered mental status type: unspecified Acute respiratory failure with hypoxia J96.01 ARDS (adult respiratory distress syndrome) J80 Pneumonia due to 2019-nCoV U07.1; J12.89 Left atrial mass I51.89 Sepsis A41.9 Sepsis type: sepsis due to unspecified organism Sepsis acute organ dysfunction status: unspecified Time Spent (min) 45
[2020-09-14] MEDS: FUROsemide 10 mg/mL SDV 4mL 40 MG IV (12:58)
[2020-09-14] MEDS: albumin 12.5 gm/50 mL IV IV (12:59)
[2020-09-14] MEDS: vancomycin 1,000 MG in sodium chloride 0.9% 250 ML 250 MG IV ×2 (12:59→20:34)
--- NOTE | 2020-09-14 13:00 | PC.NURSE ---
Addendum entered by Lilia Fonseca RN 09/14/20 20:14: BIS not reading well. Changes out BIS monitoring strip. Original Note: TOF 3/4, setting 7. No change to Nimbex gtt.
[2020-09-14 14:14] LABS: Creatine Phosphokinase 67 U/L (39-308)
[2020-09-14] MEDS: dexamethasone 4 mg/mL INJ 6 MG IVP (14:17)
[2020-09-14] MEDS: propofol 1,000 MG/100 ML INJ 8.8 MG IV (14:35)
--- NOTE | 2020-09-14 15:00 | ECG_ITS ---
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 Measurements Intervals [place] Rate: 79 P: 39 SD: 169 QRS: -11 QRSD: 84 T: 64 QT: 378 QTc: 434 Interpretive Statements SINUS RHYTHM NONSPECIFIC T-WAVE ABNORMALITY Compared to ECG 09/13/2020 21:11:22 No significant changes Electronically Signed On 09-17-2020 11:53:14 COMFORT STATION SUPERVISOR by Leighann Saba M.D. [email or web address]/store/[id number] f
[2020-09-14 15:22] LABS: Procalcitonin 1.06 ng/mL (0-0.5)
[2020-09-14 15:23] LABS: Protein Urine 1+ (Negative); Specific Gravity, Urine 1.025 (1.005-1.030); Urine Appearance Hazy (CLEAR); Urine Color Yellow (Yellow); pH Urine 5 (5-7)
[2020-09-14 15:24] LABS: Add Urine Microscopic? YES; Bilirubin Urine Neg (Negative); Blood Urine 3+ (Negative); Glucose Urine UA Norm (Normal); Ketones Urine Negative (Negative); Leukocyte Esterase Urine Negative (Negative); Nitrate Urine Negative (Negative); Urobilinogen Urine Norm (Negative)
[2020-09-14 15:25] LABS: RBC Urine 15-25 /hpf (0-2); Squamous Epithelial Cell Urine RARE /hpf (0-5); WBC Urine RARE /hpf (0-5)
[2020-09-14 15:26] LABS: Add Urine Culture? Yes; Mucus Urine TRACE /hpf
[2020-09-14 15:27] LABS: Bacteria Urine 2+ /hpf
[2020-09-14 15:40] LABS: Magnesium 2.4 mg/dL (1.7-2.3)
--- NOTE | 2020-09-14 16:21 | DCPLANNER ---
Talked to ; Lalitha via the phone, updated the IM, no questions, copy will be sent into the room as agreed.
--- NOTE | 2020-09-14 17:30 | PC.NURSE ---
TOF 2/4, setting 7. Left facial . Nimbex decreased to 3.6 mcg/kg/min.
--- NOTE | 2020-09-14 18:03 | PM.CONSULT ---
Providers/Reason For Consult Consulting Physican/Specialty*: Cardiology Reason for Consult*: Hypoxia, thromboembolic phenomena with questionable cardiac involvement Attending Physician: Nikita Barber History of Present Illness History of Present Illness Alisa Hyatt is a 70 year old male past medical history significant for hypertension hyperlipidemia admitted with Covid pneumonia on 05 September 2020, patient was later intubated for respiratory failure hypoxia. Recently he was noted to have mental status changes, CT abdomen pelvis and CT of head were consistent with hypodense area suspicious for thromboembolic phenomena. We have been asked to rule out cardiac source of thromboembolic phenomena and endocarditis. Please note that due to Covid, I have not examined the patient, history physical as per medicine colleagues. Patient has not grown any blood culture so far Meds/Allergies Home Medications and Allergies Home Medications Medication Instructions Recorded Confirmed Last Taken Type propranolol 80 mg PO DAILY 09/05/20 09/05/20 09/04/20 08:00 History Allergies Allergy/AdvReac Type Severity Reaction Status Date / Time ondansetron [From Zofran] AdvReac Unknown Unknown Verified 09/12/20 23:33 Current Medications Current Medications Generic Name Dose Route Start Last Admin Trade Name Freq PRN Reason Stop Dose Admin Acetaminophen 650 mg 09/09/20 16:23 09/13/20 21:17 Acetaminophen 325 Mg Tablet PO 650 mg Q6H PRN Administration MILD PAIN Acetylcysteine 200 mg 09/12/20 20:15 09/12/20 21:30 Acetylcysteine 200 Mg/Ml Sdv 4 Ml INHALATION 200 mg Q4H.RESPIRATORY PRN Administration SECRETIONS Albuterol/Ipratropium 3 ml 09/06/20 20:00 09/14/20 15:16 Ipratropium-Albuterol 3 Ml Neb INHALATION 3 ml Q4H.RESPIRATORY VESNA Administration Ascorbic Acid 1,000 mg 09/06/20 18:00 09/14/20 08:31 Ascorbic Acid 500 Mg Tablet PO 1,000 mg BID VESNA Administration Aspirin 81 mg 09/12/20 09:00 09/14/20 08:31 Aspirin 81 Mg Ec Tablet PO 81 mg DAILY VESNA Administration Atorvastatin Calcium 40 mg 09/08/20 21:00 09/13/20 21:17 Atorvastatin 40 Mg Tablet PO 40 mg BEDTIME VESNA Administration Budesonide 0.5 mg 09/06/20 20:00 09/14/20 07:36 Budesonide 0.5 Mg/2 Ml Neb INHALATION 0.5 mg BID.RESPIRATORY VESNA Administration Dexamethasone 6 mg 09/06/20 11:30 09/14/20 14:17 Dexamethasone 4 Mg/Ml Inj IVP 6 mg Q24H VESNA Administration Enoxaparin Sodium 100 mg 09/08/20 21:00 09/14/20 09:58 Enoxaparin 100 Mg/Ml Syringe 1 mg/kg (100 mg) 100 mg SUBCUT Administration Q12H VESNA Famotidine 20 mg 09/06/20 14:00 09/14/20 14:17 Famotidine 20 Mg/2 Ml Inj IVP 20 mg Q12H VESNA Administration Guaifenesin 600 mg 09/12/20 18:00 09/14/20 08:31 Guaifenesin 600 Mg Tablet PO 600 mg BID VESNA Administration Dexmedetomidine HCl 400 mcg/ 104 mls @ 0 mls/hr 09/08/20 18:30 09/13/20 05:15 Sodium Chloride IV Infused .Q0M VESNA Titration Protocol Per Protocol Propofol 1,000 mg in 100 mls @ 0 mls/hr 09/09/20 12:30 09/14/20 14:35 Diprivan IV 15 mcg/kg/min .Q0M VESNA 8.8 mls/hr Administration Protocol Per Protocol Norepinephrine Bitartrate 4 mg 254 mls @ 0 mls/hr 09/09/20 17:00 09/14/20 16:17 / Dextrose IV Infused .Q0M VESNA Titration Protocol Per Protocol Fentanyl 1,000 mcg/ Dextrose 100 mls @ 0 mls/hr 09/10/20 18:15 09/14/20 12:43 IV 100 mcg/hr .Q0M VESNA 10 mls/hr Administration Protocol Per Protocol Cisatracurium Besylate 100 mg/ 100 mls @ 0 mls/hr 09/12/20 17:00 09/14/20 15:15 Sodium Chloride IV Infused .Q0M VESNA Titration Protocol Per Protocol Voriconazole 361 mg/ Sodium 100 mls @ 100 mls/hr 09/13/20 20:15 09/14/20 11:20 Chloride IV Infused Q12H VESNA Infusion Imipenem/Cilastatin Sodium 500 100 mls @ 200 mls/hr 09/13/20 17:15 09/14/20 17:45 mg/ Sodium Chloride IV 200 mls/hr Q6H VESNA Administration Protocol Midazolam HCl 2 mg 09/09/20 17:30 09/12/20 18:14 Midazolam 1 Mg/Ml Inj 2 Ml IVP 2 mg Q4H PRN Administration AGITATION Non-Formulary Medication 80 mg 09/05/20 09:00 09/12/20 09:13 Propranolol PO Not Given DAILY VESNA Propranolol HCl 40 mg 09/11/20 09:00 09/14/20 08:31 Propranolol 40 Mg Tablet PO 40 mg BID VESNA Administration Quetiapine Fumarate 25 mg 09/12/20 13:30 09/12/20 14:01 Quetiapine 25 Mg Tablet PO 25 mg BID VESNA Administration Zinc Gluconate 50 mg 09/10/20 08:00 09/14/20 08:31 Zinc Gluconate 50 Mg Tablet PO 50 mg DAILY@0800 VESNA Administration PFSH Acute PFSH: Medical History Tremor Takes propranolol Surgical History No pertinent past surgical history Family History Other No pertinent family history Social History Smoking and tobacco status: never smoked Alcohol intake: never Substance/Drug Use: never Lives independently: Yes Household members: spouse Housing: House Vitals/I&O/Wt Last Vital Signs Temp 99.1 F 09/14/20 15:00 Pulse 80 09/14/20 16:00 Resp 20 H 09/14/20 17:16 BP 167/105 09/14/20 16:00 Pulse Ox 91 09/14/20 16:00 09/14/20 09/14/20 09/14/20 06:59 14:59 22:59 Intake Total 638.964 / 2700.122 852.547 / 852.547 180.417 / 1032.964 Output Total 950 / 1650 Balance -311.036 / 1050.122 852.547 / 852.547 180.417 / 1032.964 Weight last 48 hrs Weight 199 lb 11.2 oz Weight 198 lb 6.4 oz Physical Exam Narrative: EXAM NARRATIVE: Examination not performed Urinary Catheter Management^: Ivory: Cath Placed During This Visit: yes Reason for Continuing Indwelling Catheter: Accurate Measurement of Urinary Output in Critically Ill Patients Urinary Catheter Date of Insertion: 09/08/20 Urinary Catheter Time of Insertion: 11:48 Data Labs: Other Labs: SINUS RHYTHM NONSPECIFIC T-WAVE ABNORMALITY Compared to ECG 09/13/2020 21:11:22 No significant changes Micro: Micro: Microbiology 09/14/20 13:35 Blood Culture - Pr eliminary Blood SPECIMEN [facility] 09/14/20 12:54 Blood Culture - Pr eliminary Blood SPECIMEN [facility] 09/13/20 01:50 Gram Stain - Final Sputum - Endotrac heal Tube Aspirate Sputum Culture - P reliminary 09/12/20 09:35 Urine Culture - Pr eliminary Urine Catheterize d A&P Assessment and plan (1) Troponin level elevated: Patient may have underlying coronary disease in the time of stress hypoxia and sepsis it is most likely due to demand ischemia. Continue anticoagulation Status: Acute (2) Pneumonia due to 2019-nCoV: As per medicine and pulmonary Status: Acute (3) AMS (altered mental status): Could be multifactorial such as sepsis. cannot rule out CVA due to thromboembolic phenomenon. Suggest echo with contrast to rule out LV or atrial thrombus. In a good thoracic imaging study can also investigate valvular/endocarditis or paravalvular abscess. So far culture remains negative . CT scan with radiology can be reviewed which can give us information regarding intracardiac thrombus/abscess. Status: Acute Qualifiers: Altered mental status type: unspecified Qualified Code(s): R41.82 - Altered mental status, unspecified Consult Attestations Medical Necessity Statement: As per medicine Coding Level of Care Code New Pt Acute Care Management Coordinator for g Fwd Patient Type New Medical Decision Making Moderate Complexity Diagnoses Troponin level elevated R77.8 Pneumonia due to 2019-nCoV U07.1; J12.89 AMS (altered mental status) R41.82 Altered mental status type: unspecified
--- NOTE | 2020-09-14 19:00 | PC.NURSE ---
Report received, care assumed. Monitor alarms, plan of care et previous orders reviewed. Please see physical assessment et vital sign flow sheets for details. Patient supine in bed with HOB at 30 degrees. Patient on Fentanyl, nimbex et propofol gtts, titrating to effect. BIS monitor in place for sedation titration. Patient orally intubated with an 8.0 ETT secured 27 cm at the lip, see RT flowsheet for vent settings. OGT, placement verified per air bolus currently clamped. Right triple lumen IJ central line. Bilateral breath sounds per auscultation. Abdomen soft, round, non-tender with positive bowel sounds. Ivory catheter to dependent drainage. Bilateral heel protectors present.
--- NOTE | 2020-09-14 20:00 | PC.NURSE ---
Pain assessment note: Patient currently receiving Fentanyl continuously while on nimbex gtt. BIS monitor present.
--- NOTE | 2020-09-14 20:00 | PC.NURSE ---
Left facial nerve stimulated with PNS at 8. 2/4 twitches. Nimbex gtt unchanged.
--- NOTE | 2020-09-14 20:15 | PC.NURSE ---
Shift summary: Pt remains intubated, sedated and paralyzed. Nimbex was decreased a little today, see MAR. Fio2 decreased to 60% today. Family in to visit, at bedside for several hours today. Pt went for a head CT today. Multiples ischemic areas noted. Dr Barber spoke with family. He received furosemide today. 2000ml output afterwards, an additional 450 this am. Shaving provided. Central line dressing change done.
--- NOTE | 2020-09-14 20:19 | PC.NURSE ---
Patient's daughter called for a status update. Updated on patient's vital signs et physician's progress notes. All questions et concerns addressed.
[2020-09-14] MEDS: cisatracurium 100 MG in sodium chloride 0.9% 50 ML 19.5 MG IV (20:29)
[2020-09-14] MEDS: atorvastatin 40 mg Tablet PO (20:29)
--- NOTE | 2020-09-14 21:00 | PC.NURSE ---
Left facial nerve tested using PNS at 8. 2/4 twitches.
--- NOTE | 2020-09-14 21:00 | PC.NURSE ---
Left facial nerve tested with PNS at an 8. 2/4 twitches obtained. Continue paralytic dose.
--- NOTE | 2020-09-14 21:20 | PC.NURSE ---
Patient's BIS consistently >55. Propofol gtt increased. Will continue to monitor.
--- NOTE | 2020-09-14 21:38 | PM.PN ---
Subjective Subjective: Interval history: Intubated, sedated, on paralytics. Being visited by and daughter. Vitals/I&O/Wt Last Vital Signs Temp 99.1 F 09/14/20 15:00 Pulse 74 09/14/20 19:53 Resp 22 H 09/14/20 19:53 BP 136/86 09/14/20 19:00 Pulse Ox 91 09/14/20 19:53 09/14/20 09/14/20 09/14/20 06:59 14:59 22:59 Intake Total 638.964 / 2700.122 912.547 / 912.547 393.924 / 1306.471 Output Total 950 / 1650 450 / 450 2000 / 2450 Balance -311.036 / 1050.122 462.547 / 462.547 -1606.076 / -1143.529 Weight last 48 hrs Weight 90.582 kg Weight 89.993 kg Physical Exam Const: COMMON NORMALS: no acute distress GENERAL APPEARANCE: comfortable and anxious ORIENTATION/CONSCIOUSNESS: Yes awake, Yes oriented to person and Yes oriented to time; not oriented to place OTHER: Intubated, sedated, under therapeutic paralysis. HENMT: COMMON NORMALS: oropharynx normal Eye: OTHER: Pupils round and symmetrical Neck/C-Spine: COMMON NORMALS: no JVD Resp: COMMON NORMALS: normal respiratory effort and clear to auscultation bilaterally AUSCULTATION: clear to auscultation bilaterally and no crackles OTHER: Tidal volumes improved. Respiratory rate still somewhat overbreathing the ventilator. Cardio: COMMON NORMALS: no JVD, regular rhythm, S1 normal heart sound present, S2 normal heart sound present and No murmurs present (Cardio) RHYTHM: regular rhythm HEART SOUNDS: S1 normal heart sound present and S2 normal heart sound present GI: COMMON NORMALS: Normal to inspection, nondistended, normoactive bowel sounds present, Soft to palpation and non-tender PALPATION: Yes Soft to palpation Extremity: COMMON NORMALS: no joint enlargement and no pedal edema OTHER: Good capillary refill. Neuro: COMMON NORMALS: moves all extremities SENSORIUM/ORIENTATION: Yes oriented to person, No oriented to place and Yes oriented to time Skin: COMMON NORMALS: no rashes or lesions noted GENERAL SKIN EXAM: no rashes or lesions noted Urinary Catheter Management^: Ivory: Cath Placed During This Visit: yes Reason for Continuing Indwelling Catheter: Accurate Measurement of Urinary Output in Critically Ill Patients Urinary Catheter Date of Insertion: 09/08/20 Urinary Catheter Time of Insertion: 11:48 Data : 09/14/20 03:00 09/14/20 03:00 Micro: Microbiology 09/14/20 13:35 Blood Culture - Preliminary Blood SPECIMEN COLLECTED 09/14/20 12:54 Blood Culture - Preliminary Blood SPECIMEN COLLECTED 09/13/20 01:50 Gram Stain - Final Sputum - Endotracheal Tube Aspirate Sputum Culture - Preliminary 09/12/20 09:35 Urine Culture - Preliminary Urine Catheterized A&P Assessment and plan (1) Acute respiratory failure with hypoxia: Acute respiratory failure with hypoxia. ARDS. Severe COVID-19 pneumonia with possible superimposed bacterial pneumonia. Respiratory failure showing small incremental improvement. Today given additional dose of Lasix with albumin infusion. Continue therapeutic paralysis today. He is working better with the ventilator, although despite having one, occasionally two twitches on [id number], and good PIS this morning, appears still to be somewhat overbreathing the ventilator. Tidal volumes have improved, however. Oxygenation is improving. If continues to improve, consider weaning paralytics and weaning down sedation for assessment of mental status, weaning. This has tentatively been planned for tomorrow. Discussed with his and daughter regarding results of the CT scan with finding of multiple infarcts which may affect his mental status and ability to follow commands, protect airway and wean off ventilator. They stated understanding wanting to continue with the plan. He is weaned off pressors and today his blood pressure has been even a bit of hyperension which was allowed due to CVA, possibly also small cerebellar CVA. No herniation noted on CT. No hydrocephalus. Discussed w night nurse given BP has had somewhat of a trend down from this afternoon, will try to back off propofol, with versed push or even drip if needed. Discussed aiming for a bit higher, at least MAP of 70 to avoid hypoperfusion in the setting of CVA. Will give additional 25g of 25% albumin. If unsuccessful at bringing up the blood pressure, will start weaning paralytics and then sedation somewhat earlier than anticipated, although his oxygenation has been improving. Discussed with his nurse, if he again develops significant ventilator dyssynchrony, sedation and paralytics may need to be resumed, and Levophed may need to be initiated instead in case other measures are unsuccessful. Given recurrent fevers we also adjusted antibiotics yesterday switching away from Zosyn to Primaxin. This appears to have helped and today he remains afebrile. Continue to monitor. Perhaps there was organism not susceptible to Zosyn, or perhaps fevers were induced by Zosyn itself. Possibility of serotonin syndrome considered but low with fevers present before initiation. However, to avoid the risk now that he is off Zosyn, he is switched to vancomycin. Chest PT, albuterol, mucomyst nebulization. Continue Decadron. Primaxin, vancomycin, voriconazole. Monitoring QTC. Central line placed 09/12, right IJ. Intubated 09/09. Status: Acute (2) Pneumonia due to 2019-nCoV: CRP remains elevated, with rise today up to 340. D-dimer continues to gradually trend down. Completed remdesivir. Completed 2 doses of convalescent plasma. Severe COVID-19 pneumonia with acute respiratory failure, ARDS. Possible superimposed bacterial infection. As above. Status: Acute (3) Embolic cerebrovascular disease: With improvement in oxygenation allowing some mobility, was assessed by CT head today with finding of multiple ischemic CVA. Right frontal, left parietal, also smaller right temporal and left cerebellar noted on CT head. We discussed this in detail today with his family. With also noted multiple hypodensities in the kidneys, liver, embolic etiology appears most likely. Discussed also some localization to watershed areas reported on CT. Discussed possible hypoperfusion as additional alternative cause, although this is probably less likely as he has not had significant hypotension, and any lower blood pressure was rather brief and promptly responded to low rates of Levophed. Family are agreeable to continue anticoagulation. Aspirin. Continue Lipitor. Reassess mental status tomorrow during weaning trial if respiratory condition allows. Requesting also carotid duplex study. We also discussed alternative possibility of septic emboli, although this is less likely given persistently negative blood cultures, and with thromboembolic disease more likely. For additional assessment blood culture has been repeated again. Also appreciate cardiology recommendations with regards to this less likely but important possibility, and he will be additionally assessed by contrast echocardiography. Status: Acute (4) Left atrial mass: Appreciate cardiology assessment and recommendations. Additional assessment currently by contrast echocardiogram. Blood cultures repeated. Not visualized on limited repeat echo, however, poor technical quality. Will still need additional assessment. Discussed possibility of thrombus given renal scattered small hypodensities in kidneys, liver, multiple CVA with suspected embolic etiology. Continue anticoagulation. Status: Acute (5) Troponin level elevated: Discussed with family possible non-STEMI, versus type II AK with demand ischemia. Continue aspirin. Beta-akilah may be resumed if blood pressure is stable. Would benefit from additional assessment once condition is improving. Status: Acute (6) Acute hyponatremia: Infusions with fluid substituted for D5W. Sodium appears to have stabilized so far. Monitor. Status: Acute Additional A&P Information Thrombocytopenia: Platelet level appears stabilized around 100. Monitor. Aspirin dose decreased. Suspect secondary to sepsis. Continue treatment of underlying condition. Does not appear to be in DIC. Microcytic anemia, thrombocytopenia lymphopenia likely related to viral pneumonia on peripheral smear. Low likelihood of HIT by 4 T score. No hemolysis by chemistries. Low plasmic score risk for TTP. Turbid urine: No evidence of UTI. Hematuria resolved. Suspected embolic showers with small renal infarctions leading to hematuria. Or possibly traumatic Ivory. No growth on urine culture and repeat UA not suggestive of UTI. Bladder scan assessed, no obstruction. Ivory draining well. Continue anticoagulation. Scattered renal hypodensities Several liver hypodensities too small to characterize on CT D-dimer elevated. Improving. Active PE ruled out with CTA PE protocol on admission. Possibly due to worsening Covid 19 infection. Possibility of microthrombi disease. Possibility also of other foci of VTE, including the unidentified area in left atrium. Possible embolic disease. Possibility of NSTEMI. As above. Possible superimposed bacterial pneumonia. No growth on culture so far. Continue current antibiotic regimen with Primaxin, as discussed with family today also switching from linezolid to vancomycin. MRSA PCR negative, urine Legionella and bacterial antigen negative. Iron panel consistent with several iron deficiency anemia. Oral iron supplementation on hold until resolution of any possible bacterial infection. History of hypertension. His condition and assessment and plan discussed in detail with his and daughter. Attestations Medical Necessity Statement*: Continue admission for assessment management of acute respiratory failure, severe COVID-19 infection, multiorgan injury secondary to thromboembolic disease. Critical Care Time: 65 minutes critical care time spent on assessment management of immediately life-threatening issues, including hypoxic respiratory failure, severe COVID-19 pneumonia, with ARDS, possible superimposed bacterial pneumonia, with evaluation adjustments to paralytic therapy, sedation, mechanical ventilatory support, assessment and management of hemodynamic status in the setting of CVA, adjustment of antibiotics, additional assessment of etiology of CVA, embolic disease, assessment for septic embolic disease. Case discussed with all subspecialists, nursing staff and family. Coding Level of Care Code Acute Intake Specialist for [facility] Fwd Diagnoses Acute respiratory failure with hypoxia J96.01 Pneumonia due to 2019-nCoV U07.1; J12.89 Embolic cerebrovascular disease I66.9 Left atrial mass I51.89 Troponin level elevated R77.8 Acute hyponatremia E87.1
--- NOTE | 2020-09-14 22:30 | PC.NURSE ---
Dr. Barber called to give order to maintain MAP > 70 mmHg. Updated on patient condition. New orders noted et implemented. Will continue to monitor.
[2020-09-14] MEDS: midazolam 1 mg/mL INJ 2 mL 2 MG IVP (22:31)
[2020-09-14] MEDS: propofol 1,000 MG/100 ML INJ 14.6 MG IV (22:55)
[2020-09-15] VITALS (67 sets, daily range): BP systolic 106–172; BP diastolic 66–104; PULSE 66–87; RESP 20–30; TEMP 36.6–36.8; O2SAT 89–94
--- NOTE | 2020-09-15 | PC.NURSE ---
Left facial nerve assessed with PNS at an 8. 2/4 twitches obtained. Will continue current paralytic gtt rate.
--- NOTE | 2020-09-15 02:00 | PC.NURSE ---
Left facial nerve assessed with PNS at an 8. 2/4 twitches obtained. Will continue current paralytic gtt infusion rate.
[2020-09-15] MEDS: famotidine 20 mg/2 mL INJ IVP ×2 (02:11→14:05)
[2020-09-15] MEDS: ipratropium-albuterol 3 mL Neb INHALATION ×6 (03:16→23:01)
[2020-09-15] MEDS: cisatracurium 100 MG in sodium chloride 0.9% 50 ML 19.5 MG IV (03:25)
[2020-09-15 03:30] LABS: ABG PCO2 47.1 mmHg (35-45); ABG PH Result 7.39 (7.35-7.45); Arterial Blood Gas Hematocrit 41.5 % (42-52); Base Excess ABG 2.8 mmol/L (-2.0-2.0); Blood Gas Allen Test Pos; Blood Gas Sample Site Radial, right; Blood Gas Sample Type Arterial; HCO3 ABG 28.5 mmol/L (22-26); Oxygen Device VENT; PO2 ABG 65.8 mmHg (80.0-100.0)
[2020-09-15 05:23] LABS: Basophils % 0.2 %; Hematocrit 34.7 % (42.0-52.0); Hemoglobin 11.4 g/dL (11.7-16.6); Lymphocytes # 0.3 10^3/uL (0.8-4.8); Lymphocytes % 5.3 %; Mean Corpuscular HGB Conc 32.9 g/dL (30.0-36.0); Mean Corpuscular Hemoglobin 33.5 pg (28.0-34.0); Mean Corpuscular Volume 102.1 fL (80-94); Mean Platelet Volume 11.8 fL (7.4-10.4); Monocytes # 0.1 10^3/uL (0.2-0.9); Monocytes % 2.8 %; Neutrophils # 4.24 10^3/uL (1.8-7.7); Neutrophils % 90.4 %; Nucleated Red Blood Cells % 0 %; Platelet Count 130 10^3/cmm (130-400); Red Cell Distribution Width 12.9 % (12.1-15.1); White Blood Count 4.7 10^3/uL (4.0-10.0)
[2020-09-15 05:35] LABS: D Dimer 3.96 ug/mIFEU (0-0.59)
[2020-09-15 05:41] LABS: Alanine Aminotransferase 31 U/L (0-41); Albumin Level 2.5 g/dL (3.5-5.2); Alkaline Phosphatase 113 IU/L (40-130); Anion Gap 13.7 (5-19); Aspartate Amino Transferase 29 U/L (0-40); Blood Urea Nitrogen 51 mg/dL (8-23); C Reactive Protein 158.1 mg/L (0.0-4.9); Calcium 7.9 mg/dL (8.5-10.5); Carbon Dioxide 27 mmol/L (22-29); Chloride 101 mmol/L (98-107); Glomerular Filtration Rate 59.9 mL/min (90-130); Glucose 127 mg/dL (65-115); Osmolality Calculated 299 mOsm/kg (285-295); Potassium 4.7 mmol/L (3.5-5.1); Sodium 137 mmol/L (136-145); Total Bilirubin 0.4 mg/dL (0.15-1.2); Total Protein 5.5 g/dL (6.6-8.7)
--- NOTE | 2020-09-15 06:00 | XRR_ITS ---
PROCEDURE INFORMATION: Exam: XR Chest, 1 View Exam date and time: 09/15/2020 6:18 AM Age: 70 years old Clinical indication: Other: Hypoxia; Prior surgery; Patient HX: Covd follow up TECHNIQUE: Imaging protocol: XR of the chest Views: 1 view. COMPARISON: CR (CHEST, ) 09/14/2020 11:33 AM FINDINGS: Tubes, catheters and devices: An endotracheal tube, nasogastric tube and central venous catheter projects in satisfactory position. Lungs: Bilateral pulmonary infiltrates are present especially on the left side. These have not significantly changed since previous study. Pleural spaces: Unremarkable. No pleural effusion. No pneumothorax. Heart/Mediastinum: Unremarkable. No cardiomegaly. Bones/joints: Unremarkable. XR/XR chest 1V portable [id number] IMPRESSION: 1. Satisfactory position of the endotracheal tube, nasogastric tube and central venous catheter. 2. Bilateral pulmonary infiltrates unchanged.
[2020-09-15] MEDS: propofol 1,000 MG/100 ML INJ 14.6 MG IV (06:40)
[2020-09-15 07:26] LABS: Slide Review Slide Review Perform
--- NOTE | 2020-09-15 08:00 | PC.NURSE ---
TOF 4/4, setting 7. left eyebrow. Plan is to titrate Nimbex off. BIS 46
[2020-09-15] MEDS: budesonide 0.5 mg/2 mL Neb INHALATION ×2 (08:05→19:51)
--- NOTE | 2020-09-15 08:26 | P.PN_ITS ---
Subjective Subjective: Interval history: Alisa was paralyzed when I saw him this morning. Nurse has been working down his paralytic to try to wean him off. History and physical was reviewed, as well as daily progress notes. I visited with his treating physician last week for handoff of care. Medications: Reviewed: Yes Vitals/I&O/Wt Last Vital Signs Temp 97.8 F 09/15/20 04:00 Pulse 77 09/15/20 08:05 Resp 20 H 09/15/20 08:09 BP 111/69 09/15/20 05:00 Pulse Ox 92 09/15/20 08:05 09/14/20 09/15/20 09/15/20 22:59 06:59 14:59 Intake Total 924.231 / 1836.778 618.075 / 2454.853 Output Total 1999 / 2449 800 / 3250 Balance -1075.769 / -613.222 -181.925 / -795.147 Weight last 48 hrs Weight 90.991 kg Weight 90.582 kg Physical Exam Narrative: EXAM NARRATIVE: General exam is sedated and paralyzed male, here does not react. Pupils equally round Oropharynx with endotracheal tube and orogastric tube Neck is supple no lymphadenopathy or thyromegaly Cardiovascular regular rate and rhythm without murmur, no S3 or S4 Lungs coarse at the bases, no wheezing Abdomen is soft. Bowel sounds are heard. No obvious masses demonstrates Ivory Extremities no cyanosis clubbing or edema, cap refill brisk Skin no rash Neurologic: Paralyzed Urinary Catheter Management^: Ivory: Cath Placed During This Visit: yes Reason for Continuing Indwelling Catheter: Accurate Measurement of Urinary Output in Critically Ill Patients Urinary Catheter Date of Insertion: 09/08/20 Urinary Catheter Time of Insertion: 11:48 Data : 09/15/20 03:40 09/15/20 03:40 Micro: Microbiology 09/12/20 09:35 Urine Culture - Final Urine Catheterized 09/09/20 03:55 Blood Culture - Final Blood NO GROWTH AFTER 5 DAYS 09/09/20 03:55 Blood Culture - Final Blood NO GROWTH AFTER 5 DAYS 09/14/20 13:35 Blood Culture - Preliminary Blood SPECIMEN COLLECTED 09/14/20 12:54 Blood Culture - Preliminary Blood SPECIMEN COLLECTED 09/13/20 01:50 Gram Stain - Final Sputum - Endotracheal Tube Aspirate Sputum Culture - Preliminary A&P Assessment and plan (1) Pneumonia due to 2019-nCoV: He is approximately 30 days out since symptom onset Has severe ARDS Currently on dexamethasone, continued currently. He received plasma, completed remdesivir Currently intubated, sedated and paralyzed. FiO2 weaning. Current ventilator settings include FiO2 of 60%, PEEP of 10, respiratory rate of 20, tidal volume 500. Appreciate pulmonary critical care evaluation Weaning off paralytic today Continue fentanyl, propofol for sedation Question of superimposed bacterial pneumonia with elevated procalcitonin. Currently on Primaxin, vancomycin. He had recurrent fevers and went through multiple antibiotics including Zosyn, and linezolid. Voriconazole was also started secondary to persistent fevers. All cultures, sputum and urine are negative to date. MRSA PCR was negative. Galactomannan, beta D glucan were ordered and pending. He has been afebrile for greater than 24 hours Does have central line placed September 12. All blood cultures negative and no evidence of local infection with the line. He was intubated September 09. Hypotension has resolved and he is off pressors currently. 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 Right frontal, left parietal, right temporal, left cerebellar. Some hypodensities noted in kidney and liver too small to determine. This is concerning for embolic disease. He is fully anticoagulated with Lovenox. Consider repeat CT scan of the head in the next 24 hours depending upon clinical condition and response. Consider neurology evaluation, following removal of paralytic. Hold all antihypertensives allowing permissive hypertension. He is currently off norepinephrine which he required for a short time. Restart fluids half-normal saline at 50 cc an hour and monitor sodium closely. Await echocardiogram with contrast. Appreciate cardiology consultation for source of embolic disease. Carotid ultrasound also ordered. Continue statin, low-dose aspirin Status: Acute (4) Troponin level elevated: Cannot rule out non-ST elevation MA, although elevation thought likely to be secondary to severe ARDS/respiratory failure Status: Acute (5) Acute hyponatremia: Resolved. Monitor electrolytes closely Status: Acute (6) Thrombocytopenia: Platelet count has increased and within the normal range today. Status: Acute (7) Hematuria: Resolved Status: Acute (8) Elevated d-dimer: Improving Status: Acute (9) Iron deficiency: Consider treatments, if medical condition improves Status: Acute Additional A&P Information History of tremor. Propranolol and I will hold secondary to need for permissive hypertension Full code Lovenox will suffice for DVT prophylaxis We will consider resuming tube feeds, after he is off paralytic Attestations Medical Necessity Statement*: Needs continued hospital stay for mechanical ventilation secondary to severe Covid with ARDS. Critical Care Time: Critical Care Time (min): 53 Other Attestations: The high probability of a clinically significant, sudden or life threatening deterioration of the patient's [respiratory, neurologic, electrolyte] system(s) required my full and direct attention, intervention and personal management. The critical care time is as shown. This time is in addition to time spent performing any reported procedures but includes the following: [x] Data and vital sign review and interpretation [x] Patient assessment, examination and intervention [x] Documentation [x] Medication orders and management Coding Level of Care Code Acute Fabricator [employer] for [facility] Fwd Diagnoses Pneumonia due to 2019-nCoV U07.1; J12.89 Acute respiratory failure with hypoxia J96.01 Embolic cerebrovascular disease I66.9 Troponin level elevated R77.8 Acute hyponatremia E87.1 Thrombocytopenia D69.6 Hematuria R31.9 Elevated d-dimer R79.89 Iron deficiency E61.1
[2020-09-15] MEDS: enoxaparin 100 mg/mL Syringe SUBCUT ×2 (09:07→21:39)
[2020-09-15] MEDS: vancomycin 1,000 MG in sodium chloride 0.9% 250 ML 250 MG IV ×2 (09:07→21:39)
[2020-09-15] MEDS: ascorbic acid 500 mg Tablet 1000 MG PO ×2 (09:08→17:56)
[2020-09-15] MEDS: aspirin 81 mg EC Tablet PO (09:08)
[2020-09-15] MEDS: zinc gluconate 50 mg Tablet PO (09:08)
[2020-09-15] MEDS: guaiFENesin 600 mg Tablet PO ×2 (09:08→17:56)
[2020-09-15] MEDS: sodium chloride 0.45% 1,000 ML 50 ML IV (09:45)
--- NOTE | 2020-09-15 10:22 | P.PN_ITS ---
Subjective Subjective: Interval history: Yesterday CT head revealed numerous watershed infarcts in the right frontal and left parietal lobes. Possible additional small areas of ischemia in the lateral right temporal lobe and posterior left cerebellar hemisphere. No more fever spikes. Today's plan is to taper off paralytic and then sedation and assess neurologic status. If no response, will involve neurology start for neuro prognostication and depending on that we will reassess goals of care. Labs and imaging reviewed in [facility] Medications: Reviewed: Yes Vitals/I&O/Wt Last Vital Signs Temp 97.8 F 09/15/20 04:00 Pulse 77 09/15/20 08:05 Resp 20 H 09/15/20 10:15 BP 111/69 09/15/20 05:00 Pulse Ox 92 09/15/20 08:05 09/14/20 09/15/20 09/15/20 22:59 06:59 14:59 Intake Total 924.231 / 1836.778 618.075 / 2454.853 64.567 / 64.567 Output Total 1999 / 0 800 / 3250 Balance -1075.769 / -613.222 -181.925 / -795.147 64.567 / 64.567 Weight last 48 hrs Weight 200 lb 9.6 oz Weight 199 lb 11.2 oz Physical Exam Narrative: EXAM NARRATIVE: PHYSICAL EXAM: General: lying in bed, sedated and intubated. HEENT:NCAT, PERRLA, EOMI Neck: Supple Lungs: bilateral diffuse crackles Heart: s1/s2, RRR Abd: soft, NT, ND, BS + Normoactive Extremities: 1 + pedal pitting edema CHILD AND ADOLESCENT PSYCHOLOGIST: sedated and limited CHILD AND ADOLESCENT PSYCHOLOGIST exam possible. SKIN: no rash LDA: # CVC: Right IJ 09/12/2020 Urinary Catheter Management^: Ivory: Cath Placed During This Visit: yes Reason for Continuing Indwelling Catheter: Accurate Measurement of Urinary Output in Critically Ill Patients Urinary Catheter Date of Insertion: 09/08/20 Urinary Catheter Time of Insertion: 11:48 Data : 09/15/20 03:40 09/15/20 03:40 Micro: Microbiology 09/13/20 01:50 Gram Stain - Final Sputum - Endotracheal Tube Aspirate Sputum Culture - Final 09/12/20 09:35 Urine Culture - Final Urine Catheterized 09/09/20 03:55 Blood Culture - Final Blood NO GROWTH AFTER 5 DAYS 09/09/20 03:55 Blood Culture - Final Blood NO GROWTH AFTER 5 DAYS 09/14/20 13:35 Blood Culture - Preliminary Blood SPECIMEN COLLECTED 09/14/20 12:54 Blood Culture - Preliminary Blood SPECIMEN COLLECTED A&P Assessment and plan (1) AMS (altered mental status): Status: Acute Qualifiers: Altered mental status type: unspecified Qualified Code(s): R41.82 - Altered mental status, unspecified (2) Acute respiratory failure with hypoxia: Status: Acute (3) ARDS (adult respiratory distress syndrome): Status: Acute (4) Pneumonia due to 2019-nCoV: Status: Acute (5) Left atrial mass: Status: Acute (6) Sepsis: Status: Acute Qualifiers: Sepsis type: sepsis due to unspecified organism Sepsis acute organ dysfunction status: unspecified Qualified Code(s): A41.9 - Sepsis, unspecified organism Overall: 70-year-old male admitted to viral ICU for management of acute hypoxic respiratory failure secondary to ARDS due to COVID-19 pneumonia with possible superimposing bacterial infection on mechanical ventilatory support. #AMS-sepsis related AMS vs CT showed multiple watershed infarcts in the right frontal and left parietal lobes and additional small areas of ischemia in lateral right temporal lobe and posterior left cerebellar hemisphere. Also CT abdomen pelvis shows multiple hypodensities in liver and kidneys -possible emboli & echo showing? Left atrial mass #Acute respiratory failure with hypoxia due to ARDS due to COVID-19 pneumonia #Fever spikes- Superimposing bacterial infection #Slightly worsening BUN -On VC 60%/500/20/10 PEEP-saturating 91% -ABG today morning 7.3 9/47/65/20 8/93% -S/p remdesivir, 2 units convalescent plasma transfusion -On DuoNeb scheduled nebulization -Continue dexamethasone 6 mg daily -Hemodynamically stable-off pressors -CT showed multiple watershed infarcts in the right frontal and left parietal lobes and additional small areas of ischemia in lateral right temporal lobe and posterior left cerebellar hemisphere. Also CT abdomen pelvis shows multiple hypodensities in liver and kidneys -possible emboli & echo showing? Left atrial mass -currently on Lovenox -Plan is to echo with contrast today and CT head in next couple of days -turn off paralytic today and taper sedation and do awakening trial and assess mentation -If no change in mental status -recommended neurology consult for neuro prognostication and depending on that we will rediscuss goals of care -Worsening BUN, -900 cc over last 24 hours after albumin 1 dose & Lasix 40 mg 1 dose --Agree with 1/2 normal saline to prevent prerenal -Procalcitonin 1.06-bacterial infection versus worsening renal failure; follow- up blood culture, urine culture, procalcitonin- currently on vancomycin/imipenem -DC voriconazole Medical condition, labs, investigations, and plan of care-everything explained in detail to the patient family. They verbalized understanding and agreed with the plan of care. Time spent speaking with the hospitalist, RN, patient family at bedside -45 minutes Reviewed medical records and summarized as above Reviewed medications in detail and adjusted as necessary Reviewed the labs in detail with the patient family and hospitalist covering the patient Attestations Medical Necessity Statement*: Acute hypoxic respiratory failure secondary to ARDS due to COVID-19 pneumonia requiring mechanical intubation and complicated by AMS with multiple Infarcts in brain and ventilatory asynchrony Time Spent in Patient Care: (>than 50% of time spent in counselling and/or direct pt care on unit) . Critical Care Time: Critical Care Time (min): 45 Coding Level of Care Code Established Pt Acute Roll Wrapper for Chg Fwd Patient Type Established History Comprehensive Exam Comprehensive Medical Decision Making High Complexity Diagnoses AMS (altered mental status) R41.82 Altered mental status type: unspecified Acute respiratory failure with hypoxia J96.01 ARDS (adult respiratory distress syndrome) J80 Pneumonia due to 2019-nCoV U07.1; J12.89 Left atrial mass I51.89 Sepsis A41.9 Sepsis type: sepsis due to unspecified organism Sepsis acute organ dysfunction status: unspecified Time Spent (min) 45
[2020-09-15] MEDS: dexamethasone 4 mg/mL INJ 6 MG IVP (14:05)
--- NOTE | 2020-09-15 15:00 | PC.NURSE ---
BIS monitoring removed.
[2020-09-15] MEDS: propofol 1,000 MG/100 ML INJ 8.8 MG IV (15:36)
[2020-09-15] MEDS: perflutren protein-a microsphr 0.22 mg/mL SDV 3 mL IV (15:39)
--- NOTE | 2020-09-15 18:06 | PM.PN ---
Subjective Subjective: Interval history: Patient remained on the vent and paralyzed. Medications: Reviewed: Yes Vitals/I&O/Wt Last Vital Signs Temp 97.8 F 09/15/20 14:00 Pulse 83 09/15/20 15:37 Resp 28 H 09/15/20 15:43 BP 114/68 09/15/20 14:00 Pulse Ox 90 09/15/20 15:37 09/15/20 09/15/20 09/15/20 06:59 14:59 22:59 Intake Total 618.075 / 2454.853 642.925 / 642.925 160 / 802.925 Output Total 800 / 3250 575 / 575 350 / 925 Balance -181.925 / -795.147 67.925 / 67.925 -190 / -122.075 Weight last 48 hrs Weight 200 lb 9.6 oz Weight 199 lb 11.2 oz Physical Exam Narrative: EXAM NARRATIVE: Examination not performed Urinary Catheter Management^: Ivory: Cath Placed During This Visit: yes Reason for Continuing Indwelling Catheter: Accurate Measurement of Urinary Output in Critically Ill Patients Urinary Catheter Date of Insertion: 09/08/20 Urinary Catheter Time of Insertion: 11:48 Data : 09/15/20 03:40 09/15/20 03:40 Micro: Microbiology 09/14/20 13:35 Blood Culture - Preliminary Blood NEGATIVE TO DATE 09/14/20 12:54 Blood Culture - Preliminary Blood NEGATIVE TO DATE 09/13/20 01:50 Gram Stain - Final Sputum - Endotracheal Tube Aspirate Sputum Culture - Final 09/12/20 09:35 Urine Culture - Final Urine Catheterized 09/09/20 03:55 Blood Culture - Final Blood NO GROWTH AFTER 5 DAYS 09/09/20 03:55 Blood Culture - Final Blood NO GROWTH AFTER 5 DAYS A&P Assessment and plan (1) Troponin level elevated: Could be myocarditis however cannot rule out underlying coronary artery disease which became more evident during this demand ischemic phase. Once discharged as an outpatient can perform stress test. Status: Acute (2) Pneumonia due to 2019-nCoV: As per medicine and pulmonary Status: Acute (3) AMS (altered mental status): If high clinical suspicion echo with contrast or MARISABEL guided exam can be considered. Status: Acute Qualifiers: Altered mental status type: unspecified Qualified Code(s): R41.82 - Altered mental status, unspecified Attestations Medical Necessity Statement*: Patient require continuation hospitalization for above defined care Coding Level of Care Code Established Pt Acute Business Strategist for Chg Fwd Patient Type Established History Detailed Exam Detailed Medical Decision Making Moderate Complexity Diagnoses Troponin level elevated R77.8 Pneumonia due to 2019-nCoV U07.1; J12.89 AMS (altered mental status) R41.82 Altered mental status type: unspecified
--- NOTE | 2020-09-15 18:30 | PC.NURSE ---
Shift summary:Pt intubated and sedated. Sedation Fentanyl [id number] and propofol 35mcg/kg/min. Paralytic stopped at 1345 after titrating down. FIO2 at 70%, an increase. Pt has accessory muscle use and head bobbing with breaths. He tolerated a bath prior to paralytic off sedation increased briefly during for his comfort. Scleral edema noted. He has a pressure injury from ETT strap on is left ear, about the size of a pencil eraser. His mouth remains pink with no white patches noted., thorough oral care done throughout shift. CV echocardiogram with contrast agent done, results not up at this time. Hypoactive bowel sounds throughout. Urine output sufficient.
--- NOTE | 2020-09-15 19:00 | PC.NURSE ---
Upon assuming care, patient receiving Fentanyl at 100 mcg/hr et propofol at 35 mcg/kg/min. Doses corrected on OCT at the time this RN assumed.
--- NOTE | 2020-09-15 19:00 | PC.NURSE ---
Report received, care assumed. Monitor alarms, plan of care et previous orders reviewed. Patient currently on Fentanyl et Propofol gtts, titrating of affect. Orally intubated with an ETT secured 27 cm at the lip, see RT flow sheet for vent settings. OGT present, placement verified per air bolus. Right IJ central line present, placement verified by x-ray. Central line secured with a central line dressing. Pressure ulcer to left ear, scant amount of yellow/ clear drainage. Bilateral breath sounds per auscultation. Abdomen is flat, soft et appears non-tender with positive bowel sounds. Ivory catheter to dependent drainage. Bilateral heel protectors in place. Please see physical assessment et vital sign flow sheets for details.
--- NOTE | 2020-09-15 19:25 | P.CONIM_ITS ---
Providers/Reason For Consult Consulting Physican/Specialty*: Juan Daniel hospitalist Reason for Consult*: Assess neurologic state Attending Physician: Eze Frances MD History of Present Illness History of Present Illness Alisa Hyatt is a 70 year old man who is not able to be weaned from the vent and who was now discovered to have several strokes. His family had mentioned that he is known to me and so I reviewed my chart. I last saw him in 2006 for essential tremor. His exam was uncomplicated. 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 He came to our the emergency department 09/05/2020 with shortness of breath, saturation of oxygen of 85% on room air, positive Covid test 12 days before. He had pneumonia that looked typical for Covid 19 with bilateral diffuse groundglass pattern. He was hyponatremic with a sodium around 129. Initially he was able to maintain enough oxygen to get by on nasal cannula. He complained of a general feeling of fogginess. He was treated with remdesivir, dexamethasone and broad-spectrum antibiotics and 2 L of convalescent plasma. He became confused and more hypoxic and his respiratory status continued to deteriorate with ARDS. CT of the chest confirmed groundglass opacities and he also had a pleural effusion. He was on broad-spectrum antibiotics for possible bacterial superinfection. He was intubated on 09/09/2020 for progressive hypoxia and severe restlessness requiring sedatives. Even after intubation he became restless and was breathing over the vent. On 09/[address] of the abdomen and pelvis showing multiple lucencies in the liver and CT of the head showing multiple lesions suspicious for embolic stroke. His echocardiogram 09/06/2020 showed an echogenic structure in the left atrium visualized only in the apical views and suspicious for a mass. CT head without contrast 09/14/2020: Watershed infarcts in the right frontal and left parietal lobes. Possible additional smaller areas of ischemia in the lateral right temporal lobe and posterior left cerebellar hemisphere. Embolic disease should be considered. Signed By:Jama Salvador Date/Time:09/14/20 Review of Systems General: Reports: ROS unobtainable due to endotracheal tube Narrative: He has spiked fevers several times since he was intubated. His last temperature of 101 was on 09/13 Meds/Allergies Home Medications and Allergies Home Medications Medication Instructions Recorded Confirmed Last Taken Type propranolol 80 mg PO DAILY 09/05/20 09/05/20 09/04/20 08:00 History Allergies Allergy/AdvReac Type Severity Reaction Status Date / Time ondansetron [From Zofran] AdvReac Unknown Unknown Verified 09/12/20 23:33 Current Medications Current Medications Generic Name Dose Route Start Last Admin Trade Name Freq PRN Reason Stop Dose Admin Acetaminophen 650 mg 09/09/20 16:23 09/13/20 21:17 Acetaminophen 325 Mg Tablet PO 650 mg Q6H PRN Administration MILD PAIN Acetylcysteine 200 mg 09/12/20 20:15 09/12/20 21:30 Acetylcysteine 200 Mg/Ml Sdv 4 Ml INHALATION 200 mg Q4H.RESPIRATORY PRN Administration SECRETIONS Albuterol/Ipratropium 3 ml 09/06/20 20:00 09/15/20 15:36 Ipratropium-Albuterol 3 Ml Neb INHALATION 3 ml Q4H.RESPIRATORY VESNA Administration Ascorbic Acid 1,000 mg 09/06/20 18:00 09/15/20 17:56 Ascorbic Acid 500 Mg Tablet PO 1,000 mg BID VESNA Administration Aspirin 81 mg 09/12/20 09:00 09/15/20 09:08 Aspirin 81 Mg Ec Tablet PO 81 mg DAILY VESNA Administration Atorvastatin Calcium 40 mg 09/08/20 21:00 09/14/20 20:29 Atorvastatin 40 Mg Tablet PO 40 mg BEDTIME VESNA Administration Budesonide 0.5 mg 09/06/20 20:00 09/15/20 08:05 Budesonide 0.5 Mg/2 Ml Neb INHALATION 0.5 mg BID.RESPIRATORY VESNA Administration Dexamethasone 6 mg 09/06/20 11:30 09/15/20 14:05 Dexamethasone 4 Mg/Ml Inj IVP 6 mg Q24H VESNA Administration Enoxaparin Sodium 100 mg 09/08/20 21:00 09/15/20 09:07 Enoxaparin 100 Mg/Ml Syringe 1 mg/kg (100 mg) 100 mg SUBCUT Administration Q12H VESNA Famotidine 20 mg 09/06/20 14:00 09/15/20 14:05 Famotidine 20 Mg/2 Ml Inj IVP 20 mg Q12H VESNA Administration Guaifenesin 600 mg 09/12/20 18:00 09/15/20 17:56 Guaifenesin 600 Mg Tablet PO 600 mg BID EVSNA Administration Dexmedetomidine HCl 400 mcg/ 104 mls @ 0 mls/hr 09/08/20 18:30 09/13/20 05:15 Sodium Chloride IV Infused .Q0M VESNA Titration Protocol Per Protocol Propofol 1,000 mg in 100 mls @ 0 mls/hr 09/09/20 12:30 09/15/20 15:36 Diprivan IV 15 mcg/kg/min .Q0M VESNA 8.8 mls/hr Administration Protocol Per Protocol Norepinephrine Bitartrate 4 mg 254 mls @ 0 mls/hr 09/09/20 17:00 09/14/20 16: 17 / Dextrose IV Infused .Q0M VESNA Titration Protocol Per Protocol Fentanyl 1,000 mcg/ Dextrose 100 mls @ 0 mls/hr 09/10/20 18:15 09/15/20 15:37 IV 50 mcg/hr .Q0M VESNA 5 mls/hr Administration Protocol Per Protocol Cisatracurium Besylate 100 mg/ 100 mls @ 0 mls/hr 09/12/20 17:00 09/15/20 13:50 Sodium Chloride IV Infused .Q0M VESNA Titration Protocol Per Protocol Imipenem/Cilastatin Sodium 500 100 mls @ 200 mls/hr 09/13/20 17:15 09/15/20 18:30 mg/ Sodium Chloride IV Infused Q6H VESNA Infusion Protocol Vancomycin HCl 1,000 mg/ 250 mls @ 250 mls/hr 09/14/20 21:00 09/15/20 10:10 Sodium Chloride IV Infused Q12H VESNA Infusion Sodium Chloride 1,000 mls @ 50 mls/hr 09/15/20 08:45 09/15/20 09:45 Sodium Chloride 0.45% IV 50 mls/hr .Q20H VESNA Administration Midazolam HCl 2 mg 09/09/20 17:30 09/14/20 22:31 Midazolam 1 Mg/Ml Inj 2 Ml IVP 2 mg Q4H PRN Administration AGITATION Non-Formulary Medication 80 mg 09/05/20 09:00 09/12/20 09:13 Propranolol PO Not Given DAILY VESNA Propranolol HCl 40 mg 09/11/20 09:00 09/14/20 18:06 Propranolol 40 Mg Tablet PO 40 mg BID VESNA Administration Quetiapine Fumarate 25 mg 09/12/20 13:30 09/12/20 14:01 Quetiapine 25 Mg Tablet PO 25 mg BID VESNA Administration Zinc Gluconate 50 mg 09/10/20 08:00 09/15/20 09:08 Zinc Gluconate 50 Mg Tablet PO 50 mg DAILY@0800 VESNA Administration PFSH Acute PFSH: Medical History Tremor Takes propranolol Surgical History No pertinent past surgical history Family History Other No pertinent family history Social History Smoking and tobacco status: never smoked Alcohol intake: never Substance/Drug Use: never Lives independently: Yes Household members: spouse Housing: House Vitals/I&O/Wt Last Vital Signs Temp 97.8 F 09/15/20 16:00 Pulse 82 09/15/20 18:00 Resp 25 H 09/15/20 18:16 BP 134/83 09/15/20 18:00 Pulse Ox 91 09/15/20 18:00 09/15/20 09/15/20 09/15/20 06:59 14:59 22:59 Intake Total 618.075 / 2454.853 642.925 / 642.925 260 / 902.925 Output Total 800 / 3250 575 / 575 350 / 925 Balance -181.925 / -795.147 67.925 / 67.925 -90 / -22.075 Weight last 48 hrs Weight 200 lb 9.6 oz Weight 199 lb 11.2 oz Physical Exam Narrative: EXAM NARRATIVE: Today at 1830 the patient was receiving fentanyl at 100 mcg/h, propofol 35 mcg/kg/min. Paralytic was stopped at 1345 after downward titration. Fentanyl and propofol were stopped when I entered the room to examine the patient. The endotracheal tube was in place. The respiratory pattern was hyperventilation with shuddering respirations above the ventilator The patient was unresponsive to pain including deep nailbed pressure, corneal stimulation and supraorbital stimulation with a fingernail. Oculocephalic movements were absent. Pupils 5 mm sluggishly reactive to 3 mm. Reflexes were absent and plantar response was neither flexor nor extensor. Heart sounds were normal without murmur or gallop. Urinary Catheter Management^: Ivory: Cath Placed During This Visit: yes Reason for Continuing Indwelling Catheter: Accurate Measurement of Urinary Output in Critically Ill Patients Urinary Catheter Date of Insertion: 09/08/20 Urinary Catheter Time of Insertion: 11:48 Data Micro: Micro: Microbiology 09/14/20 13:35 Blood Culture - Pr eliminary Blood NEGATIVE TO WES E 09/14/20 12:54 Blood Culture - Pr eliminary Blood NEGATIVE TO WES E 09/13/20 01:50 Gram Stain - Final Sputum - Endotrac heal Tube Aspirate Sputum Culture - F inal 09/12/20 09:35 Urine Culture - Fi nal Urine Catheterize d 09/09/20 03:55 Blood Culture - Fi nal Blood NO GROWTH AFTER 5 DAYS 09/09/20 03:55 Blood Culture - Fi nal Blood NO GROWTH AFTER 5 DAYS A&P Assessment and plan (1) Acute ischemic multifocal multiple vascular territories stroke: Unfortunate 70-year-old man with Covid pneumonia and continued worsening respiratory status with ARDS. He now presents with multiple embolic strokes including right frontal, left parietal (both lesions are large) and an evolving infarct in the left cerebellum. He has brainstem involvement either from ischemia or from impending brainstem herniation from his cerebellar infarct. He is not a candidate for any type of rescue neurosurgical procedure based upon his overall profoundly critically ill medical state. His prognosis is grim for meaningful neurologic recovery. Plan for discontinuation of sedatives early tomorrow morning and reexamine. The hour was late and I did not feel it would to be appropriate to talk with his family with such grim news at this time. Status: Acute Consult Attestations Medical Necessity Statement: Respiratory failure requiring endotracheal intubation and respiratory support Time Spent in Patient Care: Greater than 35 minutes Critical Care Time: Critical Care Time (min): 35 Coding Level of Care Code Acute Roller Leveler Operator for Sho Quevedo Diagnoses Acute ischemic multifocal multiple vascular territories stroke I63.89
--- NOTE | 2020-09-15 20:15 | PC.NURSE ---
Dr. Damon to see patient. Updated on patient condition. Order to hold sedation at 0600 given. No other orders given at this time.
--- NOTE | 2020-09-15 20:24 | USCV_ITS ---
Alisa Hyatt Age: 70 Gender: M : 1950 Exam Date: 09/15/2020 13:47 Ordering Phys: Nikita Barber MD Technologist: Augusta Melissa Exam Location: [facility] [place] Indication: ? ATRIAL MASS BP: 126 / 74 HR: 72 Rhythm: Sinus Technical Quality: Adequate MEASUREMENTS (Male / Female) Normal Values 2D ECHO LV Diastolic Diameter PLAX 3.1 cm 4.2 - 5.9 / 3.9 - 5.3 cm LV Systolic Diameter PLAX 2.4 cm IVS Diastolic Thickness 1.3 cm 0.6 - 1.0 / 0.6 - 0.9 cm IVS Systolic Thickness 1.4 cm LVPW Diastolic Thickness 1.6 cm 0.6 - 1.0 / 0.6 - 0.9 cm LVPW Systolic Thickness 1.6 cm LVOT Diameter 2.1 cm LV Ejection Fraction 2D Teich 45.3 % LV Ejection Fraction MOD 2C 56.8 % LV Ejection Fraction 2C AL 57.8 % LA Diameter 3.1 cm Aorta at Sinotubular Diameter 3.6 cm M-MODE Aortic Annulus Diameter 4.3 cm LA Ao Ratio MM 0.9 MV E Point Septal Separation 0.6 cm FINDINGS Left Ventricle Normal LV size and ejection fraction. No gross wall motion normalities were noted. Mild concentric left renal hypertrophy. No intracavitary masses were noted. Contrast echocardiogram was performed Right Ventricle Right Atrium Left Atrium Testing could not be visualized well. No obvious masses were noted. Mitral Valve Aortic Valve Tricuspid Valve Pulmonic Valve Pericardium Aorta The Ascending aorta appears to be mildly dilated CONCLUSIONS 1. Normal LV size ejection fraction with no significant wall motion normalities. 2. No intracavitary masses were noted in the left ventricle 3. Left atrium is not well visualized. No obvious masses were noted 4. Possibly dilated descending aorta Dr Gilma Ramirez MD [facility] (Electronically Signed) Final Date: 15 September 2020 19:58 S
--- NOTE | 2020-09-15 21:12 | PC.NURSE ---
Called [facility] to make a donor referral. Patient's neurological et ventilator status made him meet the criteria for organ donor referral. Spoke with Dania on the [facility] donor referral line. A coordinator will be returning the call for more information. Family has not discussed withdrawal of support at this time.
--- NOTE | 2020-09-15 21:18 | PC.NURSE ---
Macie Doran with [facility] services called in response to organ donor referral. Required information for donor referral provided. Since patient has not been 28 days out from initial positive COVID test, he would not be a candidate for organ donation. Also, since the patient's family has not spoke to Dr. Damon about neurological prognosis there has not been any discussions regarding withdrawing care or plans for brain studies, it is too early to evaluate patient for organ donation. RN will pass along information provided by Macie with [facility] Services (if life support is withdrawn prior to 09/22/20, call with time of . If life support has not been withdrawn by 09/22/20, notify [facility] services prior to life support removal so that they may evaluate the patient for organ donation)
[2020-09-15] MEDS: atorvastatin 40 mg Tablet PO (21:39)
--- NOTE | 2020-09-15 22:45 | PC.NURSE ---
Patient's RR 33, ETCO2 >90, SpO2 87-88% et bp elevated. Notified respiratory therapist et increased patient's sedation. Will continue to monitor.
--- NOTE | 2020-09-15 22:59 | USCV_ITS ---
Alisa Hyatt Age: 70 Gender: M : 1950 Exam Date: 09/15/2020 14:09 Ordering Phys: Nikita Barber MD Technologist: Augusta Melissa Exam Location: [facility] [place] Indication: CVA Risk Factors: Previous Vascular Surgery: Right Brachial BP: / Left Brachial BP: / Right Left Velocity (cm/s) Spectral Plaque Velocity (cm/s) Spectral Plaque Syst/Diast Broadening Syst/Diast Broadening / Prox CCA 67.30 / 9.90 / Mid CCA 83.80 / 18.70 / Distal CCA 67.30 / 23.20 / Prox ICA 59.50 / 9.90 / Mid ICA 65.10 / 23.20 / Distal ICA 72.80 / 24.30 ECA 96.50 ICA/CCA 0.87 Vertebral Antegrade / cm/s 45.20/ 16.50 cm/s FINDINGS The right side was not examined because of the technical issues minimal plaques at the left bifurcation. Intimal thickening in the common carotid artery. Normal Doppler flow velocities in the carotid arteries. Could not visualize the left subclavian artery Antegrade flow in the vertebral artery on the left side CONCLUSIONS Minimal plaques at the left bifurcation. Intimal thickening in the common carotid and internal carotid arteries on the left side. No significant stenosis or unstable plaques on the left side, based on the above findings. Right side was not examined Dr Gilma Ramirez MD [facility] (Electronically Signed) Final Date: 17 September 2020 18:46 S
--- NOTE | 2020-09-15 23:30 | PC.NURSE ---
Patient's propofol was increased due to patient breathing >30 breaths per min, working against the vent causing him to desat. Will continue to monitor.
--- NOTE | 2020-09-15 23:32 | PC.NURSE ---
Patient's respiratory rate decreased et SpO2 increased. Patient is now tolerating mechanical ventilation after increase in propofol dose. Will continue to monitor patient respiratory et sedation status.
[2020-09-16] VITALS (50 sets, daily range): BP systolic 112–186; BP diastolic 68–108; PULSE 74–114; RESP 18–36; TEMP 36.6–36.9; O2SAT 89–94
--- NOTE | 2020-09-16 | PC.NURSE ---
0000 physical assessment note: Patient does not respond with eye opening or movement of limbs. Patient will begin to hyperventilate et have ventilator asynchrony.Patient is currently breathing at a normal rate et is not fighting mechanical ventilation.
[2020-09-16] MEDS: propofol 1,000 MG/100 ML INJ 26.3 MG IV (00:01)
[2020-09-16] MEDS: famotidine 20 mg/2 mL INJ IVP ×2 (02:47→13:39)
[2020-09-16] MEDS: ipratropium-albuterol 3 mL Neb INHALATION ×6 (03:10→23:33)
[2020-09-16 03:21] LABS: ABG PCO2 43.4 mmHg (35-45); ABG PH Result 7.42 (7.35-7.45); Arterial Blood Gas Hematocrit 36.7 % (42-52); Base Excess ABG 2.8 mmol/L (-2.0-2.0); Blood Gas Allen Test Pos; Blood Gas Sample Site Radial, left; Blood Gas Sample Type Arterial; HCO3 ABG 27.8 mmol/L (22-26); Oxygen Device VENT; PO2 ABG 74.4 mmHg (80.0-100.0)
[2020-09-16] MEDS: midazolam 1 mg/mL INJ 2 mL 2 MG IVP (05:11)
[2020-09-16 05:49] LABS: Hematocrit 35.8 % (42.0-52.0); Hemoglobin 11.6 g/dL (11.7-16.6); Lymphocytes # 0.2 10^3/uL (0.8-4.8); Lymphocytes % 3.2 %; Mean Corpuscular HGB Conc 32.4 g/dL (30.0-36.0); Mean Corpuscular Hemoglobin 33.5 pg (28.0-34.0); Mean Corpuscular Volume 103.5 fL (80-94); Mean Platelet Volume 11.1 fL (7.4-10.4); Monocytes # 0.2 10^3/uL (0.2-0.9); Monocytes % 4.3 %; Neutrophils # 4.29 10^3/uL (1.8-7.7); Neutrophils % 91.2 %; Nucleated Red Blood Cells % 0 %; Platelet Count 147 10^3/cmm (130-400); Red Blood Count 3.46 10^6/uL (4.1-5.3); Red Cell Distribution Width 12.5 % (12.1-15.1); White Blood Count 4.7 10^3/uL (4.0-10.0)
[2020-09-16 06:06] LABS: Alanine Aminotransferase 29 U/L (0-41); Albumin Level 2.7 g/dL (3.5-5.2); Alkaline Phosphatase 126 IU/L (40-130); Anion Gap 13.5 (5-19); Aspartate Amino Transferase 38 U/L (0-40); Blood Urea Nitrogen 46 mg/dL (8-23); Carbon Dioxide 26 mmol/L (22-29); Chloride 103 mmol/L (98-107); Creatinine Clr Calc Pharmacy 80.6521; Glomerular Filtration Rate 73.9 mL/min (90-130); Glucose 129 mg/dL (65-115); Osmolality Calculated 300 mOsm/kg (285-295); Potassium 4.5 mmol/L (3.5-5.1); Sodium 138 mmol/L (136-145); Total Bilirubin 0.5 mg/dL (0.15-1.2); Total Protein 5.7 g/dL (6.6-8.7)
[2020-09-16] MEDS: sodium chloride 0.45% 1,000 ML 50 ML IV (06:12)
[2020-09-16] MEDS: propofol 1,000 MG/100 ML INJ 23.4 MG IV ×2 (06:14→17:05)
[2020-09-16] MEDS: propofol 1,000 MG/100 ML INJ 17.6 MG IV (06:40)
--- NOTE | 2020-09-16 07:00 | CTR_ITS ---
PROCEDURE INFORMATION: Exam: CT Head Without Contrast Exam date and time: 09/16/2020 3:25 AM Age: 70 years old Clinical indication: Other: Follow up CVA TECHNIQUE: Imaging protocol: Computed tomography of the head without contrast. Radiation optimization: All CT scans at this facility use at least one of these dose optimization techniques: automated exposure control; mA and/or kV adjustment per patient size (includes targeted exams where dose is matched to clinical indication); or iterative reconstruction. COMPARISON: CT head wo con* [id number] 2020-09-14 11:34 RADIATION DOSE METRICS: Total DLP (mGy-cm): 862.03 FINDINGS: Limitations: Motion artifact does moderately limit the sensitivity of this examination. Brain: Unchanged right frontal, and left frontal parietal region infarcts. Cerebral ventricles: No ventriculomegaly. Bones/joints: Unremarkable. No acute fracture. Paranasal sinuses: Visualized sinuses are unremarkable. No fluid levels. Mastoid air cells: Visualized mastoid air cells are well aerated. Soft tissues: Unremarkable. CT/CT head wo con* [id number] IMPRESSION: Unchanged right frontal, and left frontal parietal region infarcts. Radiation Dose CTDIVOL = (mGy): DLP = 862.03 (mGy-cm)
--- NOTE | 2020-09-16 07:00 | XRR_ITS ---
PROCEDURE INFORMATION: Exam: XR Chest, 1 View Exam date and time: 09/16/2020 6:40 AM Age: 70 years old Clinical indication: Condition or disease; Lung condition and disease; Respiratory failure; Status not specified; Additional info: Resp failure TECHNIQUE: Imaging protocol: XR of the chest Views: 1 view. COMPARISON: CR XR chest 1V portable [id number] 09/15/2020 6:26 AM FINDINGS: Tubes, catheters and devices: An endotracheal tube, orogastric tube and central venous catheter projects in satisfactory position. Lungs: Bilateral pulmonary infiltrates are present especially in the left lung. They have not significantly changed since the previous radiograph. No new areas of consolidation are seen. Pleural spaces: Unremarkable. No pleural effusion. No pneumothorax. Heart/Mediastinum: Unremarkable. No cardiomegaly. Bones/joints: Unremarkable. XR/XR chest 1V portable [id number] IMPRESSION: 1. Satisfactory position of the ET tube, orogastric tube and central venous catheter. 2. Stable bilateral pulmonary infiltrates.
[2020-09-16] MEDS: budesonide 0.5 mg/2 mL Neb INHALATION ×2 (08:05→19:53)
[2020-09-16] MEDS: aspirin 81 mg EC Tablet PO (09:14)
[2020-09-16] MEDS: guaiFENesin 600 mg Tablet PO ×2 (09:14→17:05)
[2020-09-16] MEDS: zinc gluconate 50 mg Tablet PO (09:14)
[2020-09-16] MEDS: ascorbic acid 500 mg Tablet 1000 MG PO ×2 (09:14→17:05)
[2020-09-16] MEDS: enoxaparin 100 mg/mL Syringe SUBCUT ×2 (09:14→20:30)
--- NOTE | 2020-09-16 09:48 | P.PN_ITS ---
Subjective Subjective: Interval history: No events noted overnight. No meaningful response noted by nursing. Medications: Reviewed: Yes Vitals/I&O/Wt Last Vital Signs Temp 97.9 F 09/16/20 04:30 Pulse 74 09/16/20 08:06 Resp 20 H 09/16/20 08:09 BP 114/72 09/16/20 06:00 Pulse Ox 93 09/16/20 08:06 09/15/20 09/16/20 09/16/20 22:59 06:59 14:59 Intake Total 731.837 / 9003.843 1546.447 / 2814.209 Output Total 350 / 925 1200 / 2125 Balance 381.837 / 449.762 239.447 / 689.209 Weight last 48 hrs Weight 90.492 kg Weight 90.991 kg Physical Exam Narrative: EXAM NARRATIVE: General exam is sedated male. Pupils equally round Oropharynx with endotracheal tube and orogastric tube Neck is supple no lymphadenopathy or thyromegaly Cardiovascular regular rate and rhythm without murmur, no S3 or S4 Lungs coarse at the bases, no wheezing Abdomen is soft. Bowel sounds are heard. No obvious masses demonstrates Ivory Extremities no cyanosis clubbing or edema, cap refill brisk Skin no rash Neurologic: No withdrawal from pain, or spontaneous movement Urinary Catheter Management^: Ivory: Cath Placed During This Visit: yes Reason for Continuing Indwelling Catheter: Accurate Measurement of Urinary Output in Critically Ill Patients Urinary Catheter Date of Insertion: 09/08/20 Urinary Catheter Time of Insertion: 11:48 Data : 09/16/20 05:15 09/16/20 05:15 Micro: Microbiology 09/14/20 12:51 Urine Culture - Preliminary Urine,Clean Catch 09/14/20 13:35 Blood Culture - Preliminary Blood NEGATIVE TO DATE 09/14/20 12:54 Blood Culture - Preliminary Blood NEGATIVE TO DATE 09/13/20 01:50 Gram Stain - Final Sputum - Endotracheal Tube Aspirate Sputum Culture - Final 09/12/20 09:35 Urine Culture - Final Urine Catheterized 09/09/20 03:55 Blood Culture - Final Blood NO GROWTH AFTER 5 DAYS 09/09/20 03:55 Blood Culture - Final Blood NO GROWTH AFTER 5 DAYS A&P Assessment and plan (1) Pneumonia due to 2019-nCoV: He is approximately 30 days out since symptom onset Has severe ARDS Currently on dexamethasone. Plan is to continue this currently He received plasma, completed remdesivir Currently intubated, sedated. Paralytic was stopped yesterday. Currently on FiO2 of 70% , PEEP of 10, respiratory rate of 20, tidal volume 500. Note that FiO2 requirement has gone up from 60% yesterday Appreciate pulmonary critical care evaluation Continue fentanyl, propofol for sedation. Holding currently for neurologic exam. Question of superimposed bacterial pneumonia with elevated procalcitonin. Currently on Primaxin, vancomycin. He had recurrent fevers and went through multiple antibiotics including Zosyn, and linezolid. Voriconazole was also started secondary to persistent fevers. All cultures, sputum and urine are negative to date. MRSA PCR was negative. Galactomannan, beta D glucan were ordered and pending. He has been afebrile for greater than 24 hours. Voriconazole was discontinued September 15. Does have central line placed September 12. All blood cultures negative and no evidence of local infection with the line. He was intubated September 09. Hypotension has resolved and he is off pressors currently. 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 Right frontal, left parietal, right temporal, left cerebellar. Some hypodensities noted in kidney and liver too small to determine. This is concerning for embolic disease. He is fully anticoagulated with Lovenox. CT scan repeated today demonstrates no change. Appreciate neurology evaluation. They are coming back today with patient off sedative medicine for repeat evaluation. Hold all antihypertensives allowing permissive hypertension. Continue fluids half-normal saline at 50 cc an hour and monitor sodium closely. He is up 600 cc over the last 24 hours. Blood pressure adequate. Sodium stable at 138. BUN has decreased slightly. Echocardiogram with contrast performed yesterday. Normal LV size. Left atrium not well visualized. Appreciate cardiology consultation for source of embolic disease. Carotid ultrasound report pending. Preliminary no flow-limiting disease. Continue statin, low-dose aspirin Overall with embolic burden, and failure to have any meaningful response puts prognosis in question. Neurology to reevaluate today. We will discuss these findings with family to determine next steps in this patient's clinical course following Covid. Status: Acute (4) Troponin level elevated: Cannot rule out non-ST elevation CO, although elevation thought likely to be secondary to severe ARDS/respiratory failure Status: Acute (5) Acute hyponatremia: Resolved. Monitor electrolytes closely Status: Acute (6) Thrombocytopenia: Platelet count has increased and within the normal range today. Status: Acute (7) Hematuria: Resolved Status: Acute (8) Elevated d-dimer: Improving Status: Acute (9) Iron deficiency: Consider treatments, if medical condition improves Status: Acute Additional A&P Information History of tremor. Propranolol and I will hold secondary to need for permissive hypertension Full code Lovenox will suffice for DVT prophylaxis Resuming tube feeds at low rate Attestations Medical Necessity Statement*: Needs continued hospitalization secondary to respiratory failure requiring mechanical ventilation. Critical Care Time: 36 Other Attestations: The high probability of a clinically significant, sudden or life threatening deterioration of the patient's [pulmonary, neurologic] system(s) required my full and direct attention, intervention and personal management. The critical care time is as shown. This time is in addition to time spent performing any reported procedures but includes the following: [x] Data and vital sign review and interpretation [x] Patient assessment, examination and intervention [x] Documentation [x] Medication orders and management Coding Level of Care Code Acute Aircraft Communicator for Chg Fwd Diagnoses Pneumonia due to 2019-nCoV U07.1; J12.89 Acute respiratory failure with hypoxia J96.01 Embolic cerebrovascular disease I66.9 Troponin level elevated R77.8 Acute hyponatremia E87.1 Thrombocytopenia D69.6 Hematuria R31.9 Elevated d-dimer R79.89 Iron deficiency E61.1
[2020-09-16 10:26] LABS: Vancomycin Trough 14.7 ug/mL (10-15)
[2020-09-16] MEDS: vancomycin 1,000 MG in sodium chloride 0.9% 250 ML 250 MG IV ×2 (10:43→20:30)
--- NOTE | 2020-09-16 11:13 | P.PN_ITS ---
Subjective Subjective: Interval history: As per medicine note no meaningful response, no overnight event Medications: Reviewed: Yes Vitals/I&O/Wt Last Vital Signs Temp 97.8 F 09/16/20 08:00 Pulse 101 H 09/16/20 11:08 Resp 18 09/16/20 11:08 BP 148/91 09/16/20 09:30 Pulse Ox 91 09/16/20 11:08 09/15/20 09/16/20 09/16/20 22:59 06:59 14:59 Intake Total 731.837 / 6959.153 3610.447 / 2814.209 76.998 / 76.998 Output Total 350 / 925 1200 / 2125 175 / 175 Balance 381.837 / 449.762 239.447 / 689.209 -98.002 / -98.002 Weight last 48 hrs Weight 199 lb 8 oz Weight 200 lb 9.6 oz Physical Exam Narrative: EXAM NARRATIVE: Examination not performed Urinary Catheter Management^: Ivory: Cath Placed During This Visit: yes Reason for Continuing Indwelling Catheter: Accurate Measurement of Urinary Output in Critically Ill Patients Urinary Catheter Date of Insertion: 09/08/20 Urinary Catheter Time of Insertion: 11:48 Data : 09/16/20 05:15 09/16/20 05:15 Micro: Microbiology 09/14/20 12:51 Urine Culture - Preliminary Urine,Clean Catch 09/14/20 13:35 Blood Culture - Preliminary Blood NEGATIVE TO DATE 09/14/20 12:54 Blood Culture - Preliminary Blood NEGATIVE TO DATE 09/13/20 01:50 Gram Stain - Final Sputum - Endotracheal Tube Aspirate Sputum Culture - Final 09/12/20 09:35 Urine Culture - Final Urine Catheterized A&P Assessment and plan (1) Troponin level elevated: Could be myocarditis however cannot rule out underlying coronary artery disease which became more evident during this demand ischemic phase. Once stabilized may can further assess through stress test or angiogram however it appeared to me that short-term and long-term prognosis remained guarded . Status: Acute (2) Pneumonia due to 2019-nCoV: As per medicine and pulmonary Status: Acute (3) AMS (altered mental status): I have reviewed CTA scan of the chest, though I am not explored but I do not see left ventricle atrial thrombus or any signs of abscess expert opinion was also seeked from radiologist who I was told was not also suspicious for cardioembolic source patient is already on antibiotics and anticoagulant, vasculitis and Covid induced thrombosis may be the cause for which he is already being treated, his prognosis remain guarded, if high clinical suspicion echo with contrast or MAIRSABEL guided exam can be considered. For now we will sign off the chart but available all the time if needed Status: Acute Qualifiers: Altered mental status type: unspecified Qualified Code(s): R41.82 - Altered mental status, unspecified Attestations Medical Necessity Statement*: As per medicine. Coding Level of Care Code Established Pt Acute Parts Order And Stock Clerk for Chg Fwd Patient Type Established History Detailed Exam Detailed Medical Decision Making High Complexity Diagnoses Troponin level elevated R77.8 Pneumonia due to 2019-nCoV U07.1; J12.89 AMS (altered mental status) R41.82 Altered mental status type: unspecified
[2020-09-16] MEDS: dexamethasone 4 mg/mL INJ 6 MG IVP (13:38)
--- NOTE | 2020-09-16 15:38 | DCPLANNER ---
Pt's status changed today to a AND, he's not leaving so residential mortgage underwriter chooses not to call his with the information about the IM.
--- NOTE | 2020-09-16 19:16 | PM.PN ---
Subjective Subjective: Interval history: I called and asked the nurse to discontinue sedation. By the time the patient was waking up my clinic was full so I asked him to restart the fentanyl and leave propofol off. I examined the patient about 4 hours after propofol was discontinued. He was on 50 mcg of fentanyl IV and breathing over the ventilator with a pattern of hyperventilation. The nurse had not seen any meaningful movements. Vitals/I&O/Wt Last Vital Signs Temp 97.9 F 09/16/20 12:00 Pulse 112 H 09/16/20 17:00 Resp 27 H 09/16/20 17:32 BP 169/102 09/16/20 17:00 Pulse Ox 93 09/16/20 17:00 09/16/20 09/16/20 09/16/20 06:59 14:59 22:59 Intake Total 1439.447 / 2814.209 441.915 / 441.915 167.228 / 609.143 Output Total 1200 / 2125 325 / 325 400 / 725 Balance 239.447 / 689.209 116.915 / 116.915 -232.772 / -115.857 Weight last 48 hrs Weight 199 lb 8 oz Weight 200 lb 9.6 oz Physical Exam Narrative: EXAM NARRATIVE: Initially there was no response to voice. After careful exam, especially after nailbed pressure, supraorbital pressure and staying in the room for 10 or 15 minutes I observed that the patient was extending the right leg at the knee. I asked him to wiggle the toes on his right foot and he did so to command. I asked him to extend the right leg and he did so to command. 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 That action was not repeated. Oculocephalic movements were absent last night when I examined the patient but today he has full passive eye movements. He did not move his eyes to command. He could not apparently open his eyes but I observed him to slightly contract the eyelid muscles to command, though not consistently and not enough to use for communication. Pupils equal 5?3 constricting to light. 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 What appeared to be edema in his left cerebellum has not developed and there is no radiologic sign of brainstem or posterior circulation stroke. 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 I stressed to the nurse the importance of using caution in speaking to the patient or in the patient's room as he may very well be able to hear everything that is said to him. 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
[2020-09-16] MEDS: propofol 1,000 MG/100 ML INJ 29.3 MG IV ×2 (20:29→23:58)
[2020-09-16] MEDS: atorvastatin 40 mg Tablet PO (20:31)
[2020-09-17] VITALS (42 sets, daily range): BP systolic 126–194; BP diastolic 74–116; PULSE 87–125; RESP 20–38; TEMP 36.6–38.2; O2SAT 84–96; BMI 27.0
[2020-09-17] MEDS: sodium chloride 0.45% 1,000 ML 50 ML IV (02:33)
[2020-09-17] MEDS: famotidine 20 mg/2 mL INJ IVP ×2 (02:33→13:36)
[2020-09-17] MEDS: ipratropium-albuterol 3 mL Neb INHALATION ×5 (03:32→20:13)
[2020-09-17 03:35] LABS: Basophils % 0.1 %; Hematocrit 35.3 % (42.0-52.0); Hemoglobin 11.4 g/dL (11.7-16.6); Lymphocytes # 0.1 10^3/uL (0.8-4.8); Lymphocytes % 2.1 %; Mean Corpuscular HGB Conc 32.3 g/dL (30.0-36.0); Mean Corpuscular Hemoglobin 33.2 pg (28.0-34.0); Mean Corpuscular Volume 102.9 fL (80-94); Mean Platelet Volume 11.3 fL (7.4-10.4); Monocytes # 0.3 10^3/uL (0.2-0.9); Monocytes % 3.7 %; Neutrophils # 6.11 10^3/uL (1.8-7.7); Neutrophils % 91.7 %; Nucleated Red Blood Cells % 0 %; Platelet Count 169 10^3/cmm (130-400); Red Blood Count 3.43 10^6/uL (4.1-5.3); Red Cell Distribution Width 12.6 % (12.1-15.1); White Blood Count 6.7 10^3/uL (4.0-10.0)
[2020-09-17 03:43] LABS: ABG PCO2 44.9 mmHg (35-45); ABG PH Result 7.39 (7.35-7.45); Arterial Blood Gas Hematocrit 37.9 % (42-52); Base Excess ABG 1.3 mmol/L (-2.0-2.0); Blood Gas Allen Test Pos; Blood Gas Sample Site Radial, left; Blood Gas Sample Type Arterial; HCO3 ABG 26.8 mmol/L (22-26); Oxygen Device VENT; PO2 ABG 72.5 mmHg (80.0-100.0)
[2020-09-17 03:53] LABS: Alanine Aminotransferase 31 U/L (0-41); Albumin Level 2.6 g/dL (3.5-5.2); Alkaline Phosphatase 108 IU/L (40-130); Anion Gap 10.7 (5-19); Aspartate Amino Transferase 43 U/L (0-40); Blood Urea Nitrogen 40 mg/dL (8-23); Calcium 7.8 mg/dL (8.5-10.5); Carbon Dioxide 27 mmol/L (22-29); Chloride 106 mmol/L (98-107); Glomerular Filtration Rate 83.4 mL/min (90-130); Glucose 155 mg/dL (65-115); Osmolality Calculated 301 mOsm/kg (285-295); Potassium 4.7 mmol/L (3.5-5.1); Sodium 139 mmol/L (136-145); Total Bilirubin 0.5 mg/dL (0.15-1.2); Total Protein 5.6 g/dL (6.6-8.7)
[2020-09-17] MEDS: propofol 1,000 MG/100 ML INJ 29.3 MG IV (06:26)
--- NOTE | 2020-09-17 07:00 | XR_ITS ---
WS: [id number] Portable AP semiupright chest, 09/17/2020 Clinical Data: resp failure Comparison: Portable chest, 09/16/2020 Findings: The endotracheal tube, nasogastric tube and right internal jugular venous catheter remain i n same position. Bilateral pulmonary opacities have not changed. The heart remains enlarged and the a ortic arch is tortuous. Monitor leads are on the chest wall. XR/XR chest 1V portable [id number] Impression: No change from yesterday's portable chest.
[2020-09-17] MEDS: budesonide 0.5 mg/2 mL Neb INHALATION ×2 (08:29→20:13)
[2020-09-17] MEDS: guaiFENesin 600 mg Tablet PO ×2 (08:51→17:23)
[2020-09-17] MEDS: vancomycin 1,000 MG in sodium chloride 0.9% 250 ML 250 MG IV ×2 (08:51→21:10)
[2020-09-17] MEDS: aspirin 81 mg EC Tablet PO (08:51)
[2020-09-17] MEDS: ascorbic acid 500 mg Tablet 1000 MG PO (08:51)
[2020-09-17] MEDS: enoxaparin 100 mg/mL Syringe SUBCUT ×2 (08:51→21:10)
[2020-09-17] MEDS: zinc gluconate 50 mg Tablet PO (08:51)
[2020-09-17 10:38] LABS: Vitamin B12 746 pg/mL (232-1245)
--- NOTE | 2020-09-17 12:20 | P.PN_ITS ---
Subjective Subjective: Interval history: I have seen the patient several times today. He is not verbally responsive but has been spontaneously moving his right lower extremity when sedation is lessened. Medications: Reviewed: Yes Vitals/I&O/Wt Last Vital Signs Temp 98.3 F 09/17/20 09:00 Pulse 112 H 09/17/20 11:20 Resp 38 H 09/17/20 11:17 BP 181/103 09/17/20 10:00 Pulse Ox 93 09/17/20 11:17 09/16/20 09/17/20 09/17/20 22:59 06:59 14:59 Intake Total 360.538 / 840.609 9055 / 2552.453 427.650 / 427.650 Output Total 600 / 925 600 / 1525 150 / 150 Balance -239.462 / -323.636 0281 / 1027.453 277.650 / 277.650 Weight last 48 hrs Weight 90.492 kg Weight 90.492 kg Physical Exam Narrative: EXAM NARRATIVE: General exam is male on the ventilator Pupils equally round Oropharynx with endotracheal tube and orogastric tube Neck is supple no lymphadenopathy or thyromegaly Cardiovascular tachycardic without murmur, no S3 or S4 Lungs coarse at the bases, no wheezing Abdomen is soft. Bowel sounds are heard. No obvious masses demonstrates Ivory Extremities no cyanosis clubbing or edema, cap refill brisk Skin no rash Neurologic: No withdrawal from pain. Spontaneously moves right lower extremity. Corneal reflexes are present. Unable to get him to follow commands. Urinary Catheter Management^: Ivory: Cath Placed During This Visit: yes Reason for Continuing Indwelling Catheter: Accurate Measurement of Urinary Output in Critically Ill Patients Urinary Catheter Date of Insertion: 09/08/20 Urinary Catheter Time of Insertion: 11:48 Data : 09/17/20 03:00 09/17/20 03:00 Micro: Microbiology 09/14/20 12:51 Urine Culture - Final Urine,Clean Catch Other data: Chest x-ray today overall unchanged A&P Assessment and plan (1) Pneumonia due to 2019-nCoV: He is approximately 30 days out since symptom onset Has severe ARDS Currently on dexamethasone. We will discontinue today. He has had an adequate course. He received plasma, completed remdesivir Currently intubated, sedated. Paralytic was stopped yesterday. Currently on FiO2 of 70% , PEEP of 10, respiratory rate of 20, tidal volume 500. FiO2 requirement has been as low as 40% Appreciate pulmonary critical care evaluation Continue fentanyl, propofol for sedation. Trying to sedate more with fentanyl as serial neurologic exams being done by neurology. Question of superimposed bacterial pneumonia with elevated procalcitonin. Currently on Primaxin, vancomycin. He had recurrent fevers and went through multiple antibiotics including Zosyn, and linezolid. Voriconazole was also started secondary to persistent fevers. All cultures, sputum and urine are negative to date. MRSA PCR was negative. Galactomannan, beta D glucan were ordered and pending. He has been afebrile for greater than 24 hours. Voriconazole was discontinued September 15. Does have central line placed September 12. All blood cultures negative and no evidence of local infection with the line. He was intubated September 09. Hypotension has resolved and he is off pressors currently. 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 Right frontal, left parietal, right temporal, left cerebellar. Some hypodensities noted in kidney and liver too small to determine. This is concerning for embolic disease. He is fully anticoagulated with Lovenox. CT scan September 16 demonstrates no change. Appreciate neurology evaluation. At this point as it is difficult to say what recovery can be made. Hold all antihypertensives allowing permissive hypertension. Continue fluids half-normal saline at 50 cc an hour and monitor sodium closely. He is up 600 cc over the last 24 hours. Blood pressure adequate. Sodium stable at 138. BUN has decreased slightly. Echocardiogram with contrast performed . Normal LV size. Left atrium not well visualized. Appreciate cardiology consultation for source of embolic disease. Carotid ultrasound report pending. Preliminary no flow-limiting disease. Continuing full dose anticoagulation currently. Continue statin, low-dose aspirin Overall with embolic burden, and failure to have any meaningful response puts prognosis in question. Neurology has reevaluated and had several conferences with the family. At this point it is difficult to say what recovery could occur, and family wants treatment to proceed. Secondary to his current ventilator settings, significant increase in minute ventilation with any attempts to wean ventilator, and neurologic issues, I feel it is anticipated he will require tracheostomy and PEG tube placement. He was initially intubated on September 09. If family is agreeable I would like to arrange evaluation to see if long-term [facility] is appropriate. Status: Acute (4) Troponin level elevated: Cannot rule out non-ST elevation [place], although elevation thought likely to be secondary to severe ARDS/respiratory failure Status: Acute (5) Acute hyponatremia: Resolved. Monitor electrolytes closely Reduce fluids to 30 cc an hour Status: Acute (6) Thrombocytopenia: Platelet count has increased and within the normal range Status: Acute (7) Hematuria: Resolved Status: Acute (8) Elevated d-dimer: Improved at last check Status: Acute (9) Iron deficiency: Consider treatments, if medical condition improves Status: Acute Additional A&P Information History of tremor. Propranolol on hold secondary to need for permissive hypertension Full code Lovenox will suffice for DVT prophylaxis Tube feeds for nutrition, increasing as tolerated Attestations Medical Necessity Statement*: Needs continued hospitalization secondary to respiratory failure requiring mechanical ventilation Critical Care Time: Critical Care Time (min): 35 Other Attestations: The high probability of a clinically significant, sudden or life threatening deterioration of the patient's [cardiac, neurologic, respiratory] system(s) required my full and direct attention, intervention and personal management. The critical care time is as shown. This time is in addition to time spent performing any reported procedures but includes the following: [x] Data and vital sign review and interpretation [x] Patient assessment, examination and intervention [x] Documentation [x] Medication orders and management Coding Level of Care Code Acute Information Systems Security Officer for g Fwd Diagnoses Pneumonia due to 2019-nCoV U07.1; J12.89 Acute respiratory failure with hypoxia J96.01 Embolic cerebrovascular disease I66.9 Troponin level elevated R77.8 Acute hyponatremia E87.1 Thrombocytopenia D69.6 Hematuria R31.9 Elevated d-dimer R79.89 Iron deficiency E61.1
[2020-09-17] MEDS: ascorbic acid 500 mg Tablet PO (17:23)
[2020-09-17] MEDS: propofol 1,000 MG/100 ML INJ 17.6 MG IV (17:24)
[2020-09-17] MEDS: acetaminophen 650 mg/20.3 mL UDC PO (17:31)
--- NOTE | 2020-09-17 18:52 | P.PN_ITS ---
Subjective Subjective: Interval history: The patient was seen and examined. He is intubated and sedated. The patient is currently on 200 mcg of fentanyl and 40 mcg of propofol. He is not following any commands at this time. The patient is on pressure support ventilation with tidal volume ranging between 500-700. His respiratory rate is about 20. He is on 70% oxygen. When the sedation was less than earlier today his respiratory rate varied between 30-40. Chest x-ray obtained this morning revealed reduced lung volume. There is persistent bilateral lung infiltrate. Medications: Reviewed: Yes Vitals/I&O/Wt Last Vital Signs Temp 100.7 F H 09/17/20 16:00 Pulse 111 H 09/17/20 18:00 Resp 22 H 09/17/20 17:54 BP 155/93 09/17/20 18:00 Pulse Ox 96 09/17/20 18:00 09/17/20 09/17/20 09/17/20 06:59 14:59 22:59 Intake Total 1750 / 2552.453 1036.438 / 1036.438 966.112 / 2002.550 Output Total 600 / 1525 300 / 300 500 / 800 Balance 1150 / 1027.453 736.438 / 736.438 466.112 / 1202.550 Weight last 48 hrs Weight 199 lb 8 oz Weight 199 lb 8 oz Physical Exam Narrative: EXAM NARRATIVE: General: The patient is intubated and sedated Neck: No JVD Respiratory: Auscultation: Coarse breath sounds bilaterally, no crackles wheezing or rhonchi Cardiovascular: Regular rate and rhythm, S1-S2 present, no murmur, no peripheral edema. Abdomen: Soft, nondistended, positive bowel sound Skin: No rash Neuro: Patient is intubated and sedated not following any commands. Urinary Catheter Management^: Ivory: Cath Placed During This Visit: yes Reason for Continuing Indwelling Catheter: Accurate Measurement of Urinary Output in Critically Ill Patients Urinary Catheter Date of Insertion: 09/08/20 Urinary Catheter Time of Insertion: 11:48 Data : 09/17/20 03:00 09/17/20 03:00 Micro: Microbiology 09/14/20 12:51 Urine Culture - Final Urine,Clean Catch Attestation for Other Data: I personally reviewed and interpreted the following: Other data: I have reviewed the patient laboratory, microbiologic and radiologic data. There is no leukocytosis. Chest x-ray from this morning showed reduced lung volume compared to yesterday persistent bilateral infiltrate. All microbiologic studies have been negative so far. A&P Assessment and plan (1) ARDS (adult respiratory distress syndrome): The patient has ARDS secondary to COVID-19 pneumonia. The patient continues to be ventilator dependent. It has been challenging regarding the ventilator management. The patient has a very poor mental status likely secondary to multiple strokes. Currently the patient is not really following any commands. He continues to be tachypneic with high tidal volume with any ventilator setting. He is also on significant sedation. It has also been difficult to assess his mental status with a significant amount of sedation on board. The patient is currently on 70% oxygen. Once his oxygen requirement starts to come down it might be possible to do a tracheostomy which should help with reduction of the sedation regimen and will likely let us assess his mental status better following the strokes. The patient is currently broadly covered with antibiotic. No definite evidence of secondary bacterial or fungal infection. He has received dexamethasone for more than 14 days and had been discontinued. The patient is also on full dose anticoagulation. We will continue with the supportive therapy at this time. Status: Acute (2) Pneumonia due to 2019-nCoV: Status: Acute (3) CVA (cerebral vascular accident): Currently, the patient seems to have a significant neurologic deficit. However, this is difficult to assess because of ongoing sedation. However, based on the significant neurologic deficit that the patient has and head CT, I believe that the patient may suffer from significant neurologic deficit in the future. Status: Acute Attestations Medical Necessity Statement*: Will defer to the primary team Coding Level of Care Code Acute Head Of Cytogenetics for [facility] Diagnoses ARDS (adult respiratory distress syndrome) J80 Pneumonia due to 2019-nCoV U07.1; J12.89 CVA (cerebral vascular accident) I63.9
--- NOTE | 2020-09-17 19:35 | PC.NURSE ---
Assuming care: Patient found to be on CPAP/pSupport, vent mode at 70% FiO2. Fentanyl gtt at 200mcg, Propofol at 30mcg. 30mL/hr tube feedings infusing through OG. 27 @lip with 8.0 ET tube. Patient HR fluctuating between 115-130's ST, with report given from dayshift RN stating that he has been sustaining within those limits most of day.
[2020-09-17] MEDS: atorvastatin 40 mg Tablet PO (21:11)
[2020-09-17] MEDS: propofol 1,000 MG/100 ML INJ 23.4 MG IV (21:47)
[2020-09-18] VITALS (41 sets, daily range): BP systolic 82–141; BP diastolic 53–86; PULSE 82–199; RESP 16–31; TEMP 37–38.1; O2SAT 90–95
--- NOTE | 2020-09-18 00:07 | XR_ITS ---
WS: [id number] Portable AP upright chest, 09/18/2020 Clinical Data: afib episode Comparison: Portable chest, 09/17/2020 Findings: The endotracheal tube, nasogastric tube, right internal internal jugular venous catheter an d monitor leads remain the same. Bilateral patchy opacities have not changed. The heart is not enlarg ed. XR/XR chest 1V portable [id number] Impression: 1. No change in bilateral pulmonary opacities. 2. Better inspiratory effort the heart size is smaller. 3. No change in position of multiple tubes.
[2020-09-18 00:18] LABS: ABG PCO2 39.1 mmHg (35-45); ABG PH Result 7.43 (7.35-7.45); Alveolar-Arterial Oxygen Gradi 76.3 mmHg (5-10); Arterial Blood Gas Hematocrit 39.4 % (42-52); Base Excess ABG 1.2 mmol/L (-2.0-2.0); Blood Gas Operator Identificat HARKR; Blood Gas Sample Site Brachial, left; Blood Gas Sample Type Arterial; Carboxyhemoglobin 0.8 %THgb (0.4-20.1); HCO3 ABG 25.6 mmol/L (22-26); HGB O2 Sat 95.7 % (95-100); Ionized Calcium Level - ABG 1.1 mmol/L (1.1-1.4); Methemoglobin 0.9 % (0.4-1.5); Oxygen Device VENT; Oxygen Saturation ABG 97.3; PO2 ABG 81.6 mmHg (80.0-100.0); Potassium Level - ABG 4.2 mmol/L (3.5-5.0); Total Hemoglobin 12.8 g/dL (14-18)
[2020-09-18] MEDS: esmolol drip 2,500 MG/250 ML PREMIX 27.1 MG IV ×2 (00:20→07:14)
--- NOTE | 2020-09-18 00:29 | ECG_ITS ---
[facility] ED Test Date: 2020-09-18 Pat Name: Alisa Hyatt Department: Room: 211 Gender: Male Readiness Paraprofessional: : [id number] Requested By: Monika Torres Order Number: [id number] Mary Kate MD: Leighann Saba M.D. Measurements Intervals [place] Rate: 174 P: ND: QRS: -19 QRSD: 77 T: 127 QT: 248 QTc: 422 Interpretive Statements ATRIAL FIBRILLATION WITH RAPID VENTRICULAR RESPONSE MINIMAL VOLTAGE CRITERIA FOR LVH, CONSIDER NORMAL VARIANT [MEETS CRITERIA IN ONE OF: R(aVL), S(V1), R(V5), R(V5/V6)+S(V1)] SEPTAL MYOCARDIAL INFARCTION [40+ ms Q WAVE IN V1/V2], PROBABLY OLD MODERATE T-WAVE ABNORMALITY, CONSIDER LATERAL ISCHEMIA [-0.1+ mV T WAVE IN I/aVL/V5/V6] Compared to ECG 09/14/2020 15:19:43 Myocardial infarct finding now present Possible ischemia now present Sinus rhythm no longer present T-wave abnormality still present Electronically Signed On 09-23-2020 8:02:32 CHILD AND FAMILY COUNSELOR by Leighann Saba M.D. [email or web address] adult [id number]
--- NOTE | 2020-09-18 00:37 | P.PNCC_ITS ---
Critical Care Event Note Critical Care Event The high probability of a clinically significant, sudden or life threatening deterioration of the patient's cardiovascular system(s) required my full and direct attention, intervention and personal management. The critical care time is as shown. This time is in addition to time spent performing any reported procedures but includes the following: [x] Data and vital sign review and interpretation [x] Patient assessment, examination and intervention [x] Documentation [x] Medication orders and management Called with patient heart rate in the 200s, look to be SVT. Throughout the shift, heart rate has been in the 120s. He has had a low-grade fever. He has been on same ventilator settings throughout the evening without incident noted. Heart rate suddenly increased. No position change or other inciting event. Pulling good tidal volumes and no change to peak pressures. Maintaining systolic pressures. He is to be allowed natural with no CPR or defibrillation but other medical measures are still desired presently. Twelve- lead EKG ordered and gave instructions to initiate vagal maneuvers. Quick review of the chart showed no history of atrial fibrillation or atrial flutter. He had been on propanolol for an essential tremor and it was stopped on 14 September. He remains on propofol and fentanyl for sedation. Paralytics were stopped on September 16. Looks like he has had intermittent episodes of some tachycardia since that time though nothing to this degree. Voriconazole was stopped on September 15. Remains on imipenem and vancomycin. Remains unresponsive. Breath sounds are equal bilaterally. No tracheal deviation. I gave him 6 mg of adenosine x1 dose which slowed heart rate down enough to confirm atrial fibrillation/flutter but only briefly. Initially tried some Cardizem without any effect on heart rate though drop in blood pressure to systolic in the 90s. Heart rate continued to be in the 200s. Decision made to reinitiate beta-blockade with esmolol drip presently. He received 500 mcg bolus and was started on 50 mcg, subsequently increased to 100 mcg. Heart rate is now in the 140s to 150s. He remains in atrial flutter. Full ABG was done revealing normal pH, PCO2 39 and PO2 82. He was bumped up to 100% FiO2 and put back on pressor support. We will work on further adjusting ventilator settings as needed. Potassium was 4.2 and hemoglobin was stable. Patient has gag reflex and corneal reflexes. No abnormal movements noted. Chest x-ray has been ordered. May consider digoxin or amiodarone next. Current plans are for sedation to be turned off in the morning for more thorough neurological evaluation. With current tachy arrhythmia I have requested that this be put on hold presently until we see how he does. We will be checking magnesium level with morning labs. Had a normal TSH recently. We will follow-up chest x-ray. Critical Care Time Critical Care Time: Code activated: No Critical Care Time (min): 37 Additional information about critical care time: In 23:49 PM on 09/17/20, out 00:37 09/18/20 *11 minutes critical care on 09/17/2020 to be added to previously documented 35 minutes of critical care on same date *37 minutes critical care on 09/18/2020 Coding Level of Care Code Acute Voice Network Administrator for Sho Quevedo
[2020-09-18] MEDS: adenosine 3 mg/mL SDV 2mL 6 MG IVP (00:56)
[2020-09-18] MEDS: famotidine 20 mg/2 mL INJ IVP ×2 (01:29→13:22)
[2020-09-18] MEDS: acetaminophen 650 mg/20.3 mL UDC PO ×3 (01:29→17:48)
[2020-09-18] MEDS: propofol 1,000 MG/100 ML INJ 23.4 MG IV (01:45)
--- NOTE | 2020-09-18 02:30 | PC.NURSE ---
Afib RVR: 2350 RN found patient in what appeared to be SVT in which HR increased to 210. Pt would then return back into his baseline of 120's within 15 seconds. RN manually checked for accuracy, and then notified MD Melissa validation intern. New T/O given for a stat EKG, attempt to stimulate a vagal response, and prepare adenosine as she was on her way to pt bedside. RN and RT attempted manual vagal response with carotid massage, ET suctioning, and manual inspiratory hold via vent, to which no response was noted. Patient HR increased and sustained between 190-200 once again. New v/o: -2355 6mg Adenosine IVP -0001 10mg Cardizem IVP Adenosine IVP slowed pt HR enough to verify pt was in A-Fib RVR, and this notion was backed by EKG findings. -Esmolol ordered and initiated per protocol with a 500mcg/kg bolus given. (See Mar Flowsheet) -CXR -Magnesium levels to be added to AM labs -V/O for RN not to titrate down on sedation gtt this AM/DO NOT COMPLETE SEDATION VACATION
--- NOTE | 2020-09-18 03:06 | PC.NURSE ---
Return to Sinus: Patient converted back to SR around 0200 with HR fluctuating between 90-100. MD supervisor air conditioning installer notified. New T/O given for RN to keep Esmolol at current rate/dose for now. And to call with any new changes of HR or BP fluctuation.
[2020-09-18] MEDS: ipratropium-albuterol 3 mL Neb INHALATION ×5 (03:30→20:17)
[2020-09-18] MEDS: esmolol drip 2,500 MG/250 ML PREMIX 81.4 MG IV (03:32)
[2020-09-18 04:42] LABS: Basophils % 0.5 %; Eosinophils # 0.1 10^3/uL (0.0-0.8); Eosinophils % 1.5 %; Hematocrit 36.2 % (42.0-52.0); Hemoglobin 11.6 g/dL (11.7-16.6); Lymphocytes # 0.3 10^3/uL (0.8-4.8); Mean Corpuscular Hemoglobin 33.8 pg (28.0-34.0); Mean Corpuscular Volume 105.5 fL (80-94); Mean Platelet Volume 10.3 fL (7.4-10.4); Monocytes # 0.1 10^3/uL (0.2-0.9); Monocytes % 1.5 %; Neutrophils # 7.63 10^3/uL (1.8-7.7); Neutrophils % 86.6 %; Nucleated Red Blood Cells % 0 %; Platelet Count 181 10^3/cmm (130-400); Red Blood Count 3.43 10^6/uL (4.1-5.3); Red Cell Distribution Width 12.9 % (12.1-15.1); White Blood Count 8.8 10^3/uL (4.0-10.0)
[2020-09-18 04:56] LABS: Anion Gap 9.5 (5-19); Blood Urea Nitrogen 37 mg/dL (8-23); Calcium 7.7 mg/dL (8.5-10.5); Carbon Dioxide 25 mmol/L (22-29); Chloride 108 mmol/L (98-107); Glomerular Filtration Rate 73.9 mL/min (90-130); Glucose 138 mg/dL (65-115); Magnesium 2.2 mg/dL (1.7-2.3); Osmolality Calculated 297 mOsm/kg (285-295); Phosphorus 2.1 mg/dL (2.5-4.5); Potassium 4.5 mmol/L (3.5-5.1); Sodium 138 mmol/L (136-145)
[2020-09-18 05:03] LABS: ABG PCO2 50.6 mmHg (35-45); ABG PH Result 7.32 (7.35-7.45); Arterial Blood Gas Hematocrit 36.4 % (42-52); Base Excess ABG -0.4 mmol/L (-2.0-2.0); Blood Gas Allen Test Pos; Blood Gas Operator Identificat HARKR; Blood Gas Sample Site Radial, left; Blood Gas Sample Type Arterial; HCO3 ABG 26.2 mmol/L (22-26); Oxygen Device VENT; PO2 ABG 87.1 mmHg (80.0-100.0)
[2020-09-18 06:07] LABS: Slide Review Slide Review Perform
--- NOTE | 2020-09-18 06:13 | PC.NURSE ---
Shift Summary: Current vent settings include; FiO2 of 70%, 20RR, 10 Peep, and TV of 553. SPO2 93-95% currently. Drips titrated as indicated throughout night to achieve adequate sedation, and ensure VSS (See MAr flowsheet). Pt has remained in SR since converting out of A-fib RVR this early AM. PO Tylenol for tx of fever, which has since broke. Pt very sensitive to basic turns, and lifting of head for turn schedule and bath. No purposeful movement indicated, but gag reflex remains present and is stimulated with oral care. Sedation vacation was not completed this early AM per MD Torres's v/o. RN spoke with pt's daughter at beginning of shift on 09/17 (PM), and gave updates on pt status and current plan of care. She stressed the family's combined wishes of comfort being the main priority in his care. And that family had decided to go forth with Trach placement to be determined on when/where. Current gtt; Fent 200mcg/kg IVF 30mL/hr Esmolol 50mcg/kg Propofol 30mcg/kg Pulmocare Tube Feedings 30mL/hr 550 dark obdulio u/o. Room visible from nurses station. Report given to faustina ferraro RN.
[2020-09-18] MEDS: propofol 1,000 MG/100 ML INJ 17.6 MG IV ×3 (06:31→17:35)
[2020-09-18] MEDS: budesonide 0.5 mg/2 mL Neb INHALATION ×2 (07:43→20:17)
[2020-09-18 07:53] LABS: Glucose Point of Care 120 mg/dL (70-110)
[2020-09-18 08:14] LABS: Procalcitonin 0.55 ng/mL (0-0.5)
[2020-09-18] MEDS: enoxaparin 100 mg/mL Syringe SUBCUT ×2 (08:48→20:20)
[2020-09-18] MEDS: vancomycin 1,000 MG in sodium chloride 0.9% 250 ML 250 MG IV ×2 (08:48→20:21)
[2020-09-18] MEDS: guaiFENesin 600 mg Tablet PO ×2 (08:49→17:48)
[2020-09-18] MEDS: ascorbic acid 500 mg Tablet PO ×2 (08:49→17:48)
[2020-09-18] MEDS: zinc gluconate 50 mg Tablet PO (08:49)
[2020-09-18] MEDS: aspirin 81 mg EC Tablet PO (08:49)
[2020-09-18] MEDS: metoprolol tartrate 25 mg Tablet OG-TUBE (09:49)
--- NOTE | 2020-09-18 09:57 | P.PN_ITS ---
Subjective Subjective: Interval history: Alisa is sedated on the ventilator. Events of last night are noted. He went into atrial fibrillation with rapid ventricular rate. He was given adenosine to identify this, and then Cardizem was tried and ultimately esmolol drip was initiated. This morning he is still on an esmolol drip with a controlled heart rate. He has since converted to sinus rhythm. Medications: Reviewed: Yes Vitals/I&O/Wt Last Vital Signs Temp 98.6 F 09/18/20 07:00 Pulse 112 H 09/18/20 08:00 Resp 23 H 09/18/20 07:47 BP 110/69 09/18/20 08:00 Pulse Ox 93 09/18/20 08:00 09/17/20 09/18/20 09/18/20 22:59 06:59 14:59 Intake Total 1250.195 / 2286.633 1527.422 / 3814.055 566.922 / 566.922 Output Total 500 / 800 550 / 1350 Balance 750.195 / 1486.633 977.422 / 2464.055 566.922 / 566.922 Weight last 48 hrs Weight 94.4 kg Weight 90.492 kg Physical Exam Narrative: EXAM NARRATIVE: General exam is male on the ventilator. No purposeful movement but heavily sedated Pupils equally round Oropharynx with endotracheal tube and orogastric tube Neck is supple no lymphadenopathy or thyromegaly Cardiovascular tachycardic without murmur, no S3 or S4 Lungs coarse at the bases, no wheezing Abdomen is soft. Bowel sounds are heard. No obvious masses demonstrates Ivory Extremities no cyanosis clubbing or edema, cap refill brisk Skin no rash Neurologic: Heavily sedated Urinary Catheter Management^: Ivory: Cath Placed During This Visit: yes Reason for Continuing Indwelling Catheter: Accurate Measurement of Urinary Output in Critically Ill Patients Urinary Catheter Date of Insertion: 09/08/20 Urinary Catheter Time of Insertion: 11:48 Data : 09/18/20 04:25 09/18/20 04:25 Micro: Microbiology 09/14/20 12:51 Urine Culture - Final Urine,Clean Catch A&P Assessment and plan (1) Pneumonia due to 2019-nCoV: He is over 30 days out since symptom onset Has severe ARDS He completed an entire course of dexamethasone He received plasma, completed remdesivir Currently intubated, sedated. Paralytic was stopped yesterday. Currently on FiO2 of 70% , PEEP of 10, respiratory rate of 20, tidal volume 500. Appreciate pulmonary critical care evaluation Continue fentanyl and propofol for sedation Question of superimposed bacterial pneumonia with elevated procalcitonin. Currently on Primaxin, vancomycin. He had recurrent fevers and went through mu ltiple antibiotics including Zosyn, and linezolid. Voriconazole was also started secondary to persistent fevers. All cultures, sputum and urine are negative to date. MRSA PCR was negative. Galactomannan, beta D glucan were ordered and pending. He has been afebrile for greater than 24 hours. Vo riconazole was discontinued September 15. Does have central line placed September 12. All blood cultures negative and no evidence of local infection with the line. He was intubated September 09. Hypotension has resolved and he is off pressors currently. 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 Right frontal, left parietal, right temporal, left cerebellar. Some hypodensities noted in kidney and liver too small to determine. This is concerning for embolic disease. He is fully anticoagulated with Lovenox. CT scan September 16 demonstrates no change. Appreciate neurology evaluation. At this point as it is difficult to say what recovery can be made. Echocardiogram with contrast performed . Normal LV size. Left atrium not well visualized. Appreciate cardiology consultation for source of embolic disease. Carotid ultrasound left side without significant stenosis, right not visualized secondary to central line. Continuing full dose anticoagulation currently. Continue statin, low-dose aspirin Overall with embolic burden, and failure to have any meaningful response puts prognosis in question. Neurology has reevaluated and had several conferences with the family. At this point it is difficult to say what recovery could occur, and family wants treatment to proceed. Secondary to his current ventilator settings, significant increase in minute ventilation with any attempts to wean ventilator, and neurologic issues, I feel it is anticipated he will require tracheostomy and PEG tube placement. He was initially intubated on September 09. If family is agreeable I would like to arrange evaluation to see if long-term [facility] is appropriate. This is under evaluation currently. It is also possible PEG tube and tracheostomy could be considered here. Will need to discuss with ENT when they are available regarding their comfort and tracheostomy with his current clinical status. Status: Acute (4) Troponin level elevated: Cannot rule out non-ST elevation TX, although elevation thought likely to be secondary to severe ARDS/respiratory failure Status: Acute (5) Acute hyponatremia: Resolved. Monitor electrolytes closely Discontinue fluids today. Currently he is getting adequate fluids through ancillary drips Status: Acute (6) Thrombocytopenia: Platelet count has increased and within the normal range Status: Acute (7) Hematuria: Resolved Status: Acute (8) Elevated d-dimer: Improved at last check Status: Acute (9) Iron deficiency: Consider treatments, if medical condition improves Status: Acute Additional A&P Information Atrial fibrillation with rapid ventricular rate noted last night. Placed on esmolol. Will initiate metoprolol 25 mg twice daily and try to wean off esmolol. Monitor blood pressure closely to try to prevent hypotension. History of tremor. Propranolol on hold secondary to need for permissive hypertension Full code Lovenox will suffice for DVT prophylaxis Tube feeds for nutrition, increasing as tolerated. Dietary consult. Attestations Medical Necessity Statement*: Needs continued hospitalization secondary to respiratory failure, severe Covid pneumonia, likely bacterial pneumonia, CVA. Critical Care Time: Critical Care Time (min): 34 Other Attestations: The high probability of a clinically significant, sudden or life threatening deterioration of the patient's [neurologic, cardiovascular, pulmonary] system(s) required my full and direct attention, intervention and personal management. The critical care time is as shown. 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
[2020-09-18 11:58] LABS: ABG PCO2 36.4 mmHg (35-45); ABG PH Result 7.45 (7.35-7.45); Base Excess ABG 1.1 mmol/L (-2.0-2.0); Blood Gas Allen Test Pos; Blood Gas Operator Identificat MONRO; Blood Gas Sample Site Radial, left; Blood Gas Sample Type Arterial; Oxygen Device VENT; PO2 ABG 76.2 mmHg (80.0-100.0)
--- NOTE | 2020-09-18 14:49 | PM.MISC ---
Miscellaneous Note Purpose of Documentation: Progress note Note: I saw this patient 09/17/2020. I reviewed his neurologic state initially while he was still on propofol and fentanyl. I asked the nurse to stop sedation and I returned several hours later. The patient still appeared to be sedated. He was breathing over the ventilator but did not appear to be traumatizing his airways Mental status exam there was no response to voice. There was no clear response to pain. He had spontaneous extension movements of the right leg and abduction movement of the left leg. Oculocephalic movements were full. Corneals were intact bilaterally. I talked with Dr. Frances, at the bedside and then in conference. He called the patient's and I spoke with her and went over my findings including my review of the CAT scan. She asked to talk it over with her daughter and call me back and I gave her my cell phone number. Her daughter called me several hours later and set up a conference call with Fran's Lalitha. They had a chance to ask questions and Mrs. Hyatt had by then recognized that if he was going to be hemiplegic and confined to a wheelchair that would be a livable situation. Unfortunately, based on his CAT scan results I could not predict his neurologic outcome and he is too sedated for his examination to allow any predictions. We talked frankly about different options and in the end, they were in favor of proceeding with tracheotomy, PEG tube and respiratory and neuro rehab. This was discussed with Dr. Frances. I assured the family that present aggressive measures would not prevent withdrawal of life support if it becomes clear that the situation is hopeless.
--- NOTE | 2020-09-18 14:55 | PM.PN ---
Subjective Subjective: Interval history: The events of last night were reviewed. He went into atrial fibrillation with RVR and was on an esmolol drip for a while. That is been discontinued and he is on oral metoprolol and tolerating it. He is on full propofol and fentanyl sedatives and resting quietly. Vitals/I&O/Wt Last Vital Signs Temp 99.4 F 09/18/20 12:18 Pulse 116 H 09/18/20 14:00 Resp 20 H 09/18/20 11:47 BP 119/65 09/18/20 14:00 Pulse Ox 94 09/18/20 14:00 09/17/20 09/18/20 09/18/20 22:59 06:59 14:59 Intake Total 1250.195 / 2286.633 1527.422 / 3814.055 1175.413 / 1175.413 Output Total 500 / 800 550 / 1350 Balance 750.195 / 1486.633 977.422 / 2464.055 1175.413 / 1175.413 Weight last 48 hrs Weight 208 lb 1.862 oz Weight 199 lb 8 oz Physical Exam Narrative: EXAM NARRATIVE: Oculocephalic movements intact. Corneals present bilaterally. No response to pinching. I did not give him severe nailbed pressure. Toes are neither upgoing or downgoing. Urinary Catheter Management^: Ivory: Cath Placed During This Visit: yes Reason for Continuing Indwelling Catheter: Accurate Measurement of Urinary Output in Critically Ill Patients Urinary Catheter Date of Insertion: 09/08/20 Urinary Catheter Time of Insertion: 11:48 Data : 09/18/20 04:25 09/18/20 04:25 A&P Assessment and plan (1) Acute ischemic multifocal multiple vascular territories stroke: I went back and reviewed his CAT scan again. He has a right middle cerebral artery anterior branch stroke. I do not expect that the outcome of the stroke will be severe. I expect he may be aprosodic with a flat affect but that may not be the case. I expect his weakness to be mild and more likely he will be apractic. He does seem to be weaker on the left side during the minimal examinations that have been possible while he has been under sedation. The infarct that he has in the left parietal region is unlikely to interfere with function as it is in a visual association area. I would like to see him in follow-up if he survives rehabilitation. Status: Acute (2) ARDS (adult respiratory distress syndrome): Status: Acute (3) Left atrial mass: He may have a left atrial mass based on previous echocardiogram but no work-up will be possible until he otherwise stabilizes. 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
--- NOTE | 2020-09-18 15:08 | PC.SOCIAL ---
*IMM UPDATE* Gave IMM update to pt's , Lalitha via phone. She understood. 2:46pm Initialed, dated, timed and placed in chart.
[2020-09-18] MEDS: metoprolol tartrate 1 mg/1 mL SDV 5 mL 5 MG IV ×2 (15:50→17:59)
--- NOTE | 2020-09-18 16:12 | PC.NURSE ---
Patient went into SVT with rates as high as 250. Nurse alerted Dr grier and received order for 5mg of metoprolol IV now. Nurse administered metoprolol and heart rate corrected. Heart rate is currently 107. Nurse alerted Dr grier to reduction in rate and received additional standing orders for metoprolol PRN. See mar.
--- NOTE | 2020-09-18 16:25 | PC.NURSE ---
Nurse checked residual. Amount was 90 ml. Pt is currently receiving 30ml/hr tube feeds. Nurse stopped tube feedings at this time.
--- NOTE | 2020-09-18 18:19 | PC.NURSE ---
Patient went into SVT again. HR of max of 220. Nurse gave the prn 4mg metoprolol. No affect. Nurse alerted Dr Frances. Received orders for amiodarone drip.
[2020-09-18] MEDS: atorvastatin 40 mg Tablet PO (20:20)
[2020-09-18] MEDS: metoprolol tartrate 50 mg Tablet OG-TUBE (20:20)
[2020-09-18] MEDS: propofol 1,000 MG/100 ML INJ 14.6 MG IV (22:37)
--- NOTE | 2020-09-18 22:44 | PC.NURSE ---
ASSUMING CARE 1900 Patient resting in bed mechanically ventilated. PC-AC mode, Rate 20, PEEP 10, and FiO2 60%. Day shift RN initiated amiodarone gtt at 1829 for A-fib with RVR and rate in 170s. Fentanyl drip at 70 mcg/hour, propofol at 25 mcg/kg/min, and amiodarone at 1 mg/min and to be turned down to 0.5 mg/min at 0029.
[2020-09-19] VITALS (24 sets, daily range): BP systolic 87–142; BP diastolic 54–77; PULSE 81–105; RESP 18–34; TEMP 36.9–37.7; O2SAT 91–96
[2020-09-19] MEDS: ipratropium-albuterol 3 mL Neb INHALATION ×4 (00:06→11:20)
[2020-09-19] MEDS: midazolam 1 mg/mL INJ 2 mL 2 MG IVP (01:54)
[2020-09-19] MEDS: famotidine 20 mg/2 mL INJ IVP (01:54)
[2020-09-19 04:12] LABS: Basophils % 0.4 %; Eosinophils # 0.3 10^3/uL (0.0-0.8); Eosinophils % 3.6 %; Hematocrit 32.6 % (42.0-52.0); Hemoglobin 10.6 g/dL (11.7-16.6); Lymphocytes # 0.2 10^3/uL (0.8-4.8); Lymphocytes % 2.5 %; Mean Corpuscular HGB Conc 32.5 g/dL (30.0-36.0); Mean Corpuscular Hemoglobin 33.3 pg (28.0-34.0); Mean Corpuscular Volume 102.5 fL (80-94); Mean Platelet Volume 10.4 fL (7.4-10.4); Monocytes # 0.1 10^3/uL (0.2-0.9); Monocytes % 1.3 %; Neutrophils # 6.14 10^3/uL (1.8-7.7); Neutrophils % 85.3 %; Nucleated Red Blood Cells % 0 %; Platelet Count 150 10^3/cmm (130-400); Red Blood Count 3.18 10^6/uL (4.1-5.3); Red Cell Distribution Width 12.9 % (12.1-15.1); White Blood Count 7.2 10^3/uL (4.0-10.0)
[2020-09-19 04:36] LABS: Alanine Aminotransferase 28 U/L (0-41); Albumin Level 1.9 g/dL (3.5-5.2); Alkaline Phosphatase 101 IU/L (40-130); Anion Gap 9.4 (5-19); Aspartate Amino Transferase 34 U/L (0-40); Blood Urea Nitrogen 40 mg/dL (8-23); Calcium 7.3 mg/dL (8.5-10.5); Carbon Dioxide 25 mmol/L (22-29); Chloride 109 mmol/L (98-107); Glomerular Filtration Rate 83.4 mL/min (90-130); Glucose 122 mg/dL (65-115); Osmolality Calculated 299 mOsm/kg (285-295); Potassium 4.4 mmol/L (3.5-5.1); Sodium 139 mmol/L (136-145); Total Bilirubin 0.5 mg/dL (0.15-1.2); Total Protein 4.9 g/dL (6.6-8.7)
[2020-09-19 04:41] LABS: ABG PH Result 7.41 (7.35-7.45); Arterial Blood Gas Hematocrit 34.5 % (42-52); Blood Gas Sample Type Arterial; HCO3 ABG 24.7 mmol/L (22-26); PO2 ABG 83.3 mmHg (80.0-100.0)
[2020-09-19 04:42] LABS: Blood Gas Operator Identificat HARKR; Blood Gas Sample Site Brachial, right; Oxygen Device VENT
[2020-09-19] MEDS: propofol 1,000 MG/100 ML INJ 20.5 MG IV (04:49)
[2020-09-19 05:19] LABS: Slide Review Slide Review Perform
--- NOTE | 2020-09-19 06:17 | PC.NURSE ---
AMIODARONE GTT Patients amiodarone gtt converted him to sinus rhythm after approximately 1 hour.
--- NOTE | 2020-09-19 06:30 | PC.NURSE ---
DESAT 0154 Patient suddenly had oxygen desaturation to mid 80s, breathing 35-40 bpm labored abdominal breathing, and breath stacking. Patient in line suctioned and thick yellow sputum expectorated. Patient repositioned and propofol increased to 35 mcg/kg/min which is where it remains at this time. PRN versed push given at 0154 and breathing is back to normal with rate in low 20s, rhythm normal, and oxygen saturation increased to mid 90s.
--- NOTE | 2020-09-19 06:36 | PC.NURSE ---
SHIFT SUMMARY Patient slightly opened eyes this morning while coughing, but is not following commands at this time. 400 mL light obdulio urine output from hampton catheter, afebrile this AM with last temp of 98.4, beginning temp 100.3 and not treated. FiO2 decreased to 55% this AM, otherwise ventilator mode and settings remain the same. See previous note about desaturation. DRIPS Amiodarone 0.5 mg/min Fentanyl 200 mcg/hour Propofol 35 mcg/kg/min
--- NOTE | 2020-09-19 07:00 | XR_ITS ---
WS: [id number] Portable AP supine chest, 09/19/2020 Clinical Data: resp failure Comparison: Portable chest, 09/18/2020 Findings: The endotracheal tube, nasogastric tube, right internal jugular venous catheter and monitor leads remain in position. There is no change in the diffuse bilateral pulmonary opacities. The heart size is normal. XR/XR chest 1V portable [id number] Impression: No change from yesterday's portable chest.
[2020-09-19] MEDS: budesonide 0.5 mg/2 mL Neb INHALATION (07:44)
[2020-09-19] MEDS: propofol 1,000 MG/100 ML INJ 26.3 MG IV ×3 (08:07→12:54)
[2020-09-19] MEDS: enoxaparin 100 mg/mL Syringe SUBCUT (08:08)
[2020-09-19] MEDS: guaiFENesin 600 mg Tablet PO (08:08)
[2020-09-19] MEDS: metoprolol tartrate 25 mg Tablet OG-TUBE (08:08)
[2020-09-19] MEDS: zinc gluconate 50 mg Tablet PO (08:08)
[2020-09-19] MEDS: ascorbic acid 500 mg Tablet PO (08:08)
[2020-09-19] MEDS: aspirin 81 mg EC Tablet PO (08:08)
--- NOTE | 2020-09-19 08:52 | P.TS_ITS ---
Transfer Summary Providers Date of Admission: 09/05/20 03:50 Date of Discharge: 09/19/20 Attending Provider at Admission: Bonilla Chambers MD Attending Provider at Transfer: Eze Frances MD Anticipated Date of Transfer: Anticipated date of transfer: 09/19/20 Receiving Facility & Provider: Receiving Provider: [Dr. Valerio] Receiving facility: [facility]] Diagnoses at Discharge Discharge Diagnosis (1) Acute ischemic multifocal multiple vascular territories stroke: Status: Acute (2) ARDS (adult respiratory distress syndrome): Status: Acute (3) Left atrial mass: Status: Acute Reason for Visit Reason for Visit: SOB X 2 DAYS Hospital Course Hospital Course Alisa is a 70-year-old male who presented to the hospital on September 05. He became ill with Covid around August 23. In the emergency department he required 5 L of oxygen. He was placed on remdesivir, dexamethasone. Over the course of his hospitalization he developed ARDS. He was broadly covered with antibiotics as well as anticoagulation. Pulmonary critical care was consulted. His breathing was supported with BiPAP but ultimately he required endotracheal intubation on September 09. He required quite high FiO2 settings for some time, and continued to spike fevers so ultimately he was placed on Primaxin and vancomycin. On September 14 while weaning there was concern of neurologic deficits so CT of head was done which demonstrated watershed infarcts, right frontal, left parietal, right temporal, left cerebellar. This was concerning for embolic disease even though he was still fully anticoagulated with Lovenox. There was question of left atrial mass on previous echo so cardiology was consulted. Review of initial CT scans demonstrated no evidence of mass. Repeat echo with contrast was of poor quality. Neurology was consulted as well secondary to his CVA. It was difficult to make a certain diagnosis about his prognosis. Consultation with the family occurred and they wish to pursue possible tracheostomy, PEG tube placement, and rehabilitation. The patient's neurologic status when sedation was lessened demonstrated corneal reflexes, gag reflex, and the ability to move the right foot. At 1 point there was question of whether he could squeeze his right hand but this was not demonstrated repetitively. During the last 24 to 36 hours of his hospitalization he did develop atrial fibrillation. This was controlled ultimately with an amiodarone drip. On day of transfer vital signs were stable, heart rate was controlled at 102, blood pressure 122/69. He was sedated on propofol and fentanyl and appeared comfortable. Family has been apprised of his severity of illness and currently wanted to continue treatment. He was therefore transferred [facility] who graciously accepted his transfer. Dr. Cooper attending. Physical Exam Narrative: EXAM NARRATIVE: General exam no apparent distress Cardiovascular irregular, irregular without murmur Lungs clear Abdomen is soft, positive bowel sounds Extremities no cyanosis clubbing or edema Urinary Catheter Management^: Ivory: Cath Placed During This Visit: yes Reason for Continuing Indwelling Catheter: Accurate Measurement of Urinary Output in Critically Ill Patients Urinary Catheter Date of Insertion: 09/08/20 Urinary Catheter Time of Insertion: 11:48 TS Data Data Completed and Pending: Completed Studies During Hospitalization Category Date Time Status CT abdomen pelvis w con* 99908 Stat Cat Scan 09/06/20 21:[address] angio chest PE protcl 51731 Urge nt Cat Scan 09/05/20 03:[address] head wo con* 7 0450 Routine Cat Scan 09/14/20 09:[address] head wo con* 7 0450 Routine Cat Scan 09/16/20 07:00 Completed CXRP [XR chest 1V portable [id number]] S tat Exams 09/09/20 15:39 Completed XR chest 1V to ble 30737 Q48H Exams 09/06/20 06:00 Completed XR chest 1V to ble 33796 Q48H Exams 09/08/20 06:00 Completed XR chest 1V to ble 77027 Q48H Exams 09/10/20 06:00 Completed XR chest 1V to ble 08513 Routine Exams 09/09/20 06:00 Completed XR chest 1V to ble 40183 Routine Exams 09/11/20 06:00 Completed XR chest 1V to ble 84176 Routine Exams 09/12/20 07:45 Completed XR chest 1V to ble 48443 Routine Exams 09/14/20 06:00 Completed XR chest 1V to ble 33277 Routine Exams 09/15/20 06:00 Completed XR chest 1V to ble 70802 Routine Exams 09/16/20 07:00 Completed XR chest 1V to ble 27772 Routine Exams 09/17/20 07:00 Completed XR chest 1V to ble 98755 Stat Exams 09/05/20 02:13 Completed XR chest 1V to ble 13190 Stat Exams 09/09/20 18:03 Completed XR chest 1V to ble 26429 Stat Exams 09/12/20 18:40 Completed XR chest 1V to ble 86600 Stat Exams 09/12/20 20:13 Completed XR chest 1V to ble 52833 Stat Exams 09/18/20 00:07 Completed CV carotid duplex BI* [id number] Routine Ultrasound 09/15/20 22:59 Completed CV echo complete* 04253 Routine Ultrasound 09/06/20 11:21 Completed CV echo limited 9 3308 Routine Ultrasound 09/09/20 18:47 Completed CV echo lmt wo/w contras [id number] Rout ine Ultrasound 09/15/20 20:24 Completed US/CV paperwork R outine Ultrasound 09/15/20 Completed Pending at discharge Category Date Time Status XR chest 1V to ble 32203 Routine Exams 09/19/20 07:00 Taken ABO/Rh Type Routi ne Lab 09/07/20 17:30 Results Blood Culture Sta t Lab 09/14/20 13:35 Results Complete Crossmat ch Routine Lab 09/07/20 17:[address] asma 1st Cont Rout ine Lab 09/07/20 17:30 Results Miscellaneous Smita t Routine Lab 09/12/20 04:50 Received Miscellaneous Smita t Routine Lab 09/15/20 03:40 Received Vancomycin Trough Timed Lab 09/19/20 08:00 Ordered Labs from last 24 hours 09/19/20 09/19/20 09/19/20 04:31 04:01 04:01 WBC 7.2 RBC 3.18 L Hgb 10.6 L Hct 32.6 L MCV 102.5 H MCH 33.3 MCHC 32.5 RDW 12.9 Plt Count 150 MPV 10.4 Neut % (Auto) 85.3 Lymph % (Auto) 2.5 [place] % (Auto) 1.3 Eos % (Auto) 3.6 Baso % (Auto) 0.4 Neut # (Auto) 6.14 Lymph # (Auto) 0.2 L [place] # (Auto) 0.1 L Eos # (Auto) 0.3 Baso # (Auto) 0.0 Nucleated RBC % (a uto) 0 Nucleated RBCs # 0.0 Specimen Type Arterial Sample Site Brachial, right ABG pH 7.41 ABG pCO2 39.0 ABG pO2 83.3 ABG HCO3 24.7 ABG Base Excess 0.0 Dex Test N/a Hematocrit 34.5 L O2 Delivery Device Vent FiO2 60.0 PEEP 10.0 Major Assembly Lineman ID Harkr Sodium 139 Potassium 4.4 Chloride 109 H Carbon Dioxide 25 Anion Gap 9.4 BUN 40 H Creatinine 0.9 GFR Calculation 83.4 L Glucose 122 H Calculated Osmolal ity 299 H Calcium 7.3 L Total Bilirubin 0.5 AST 34 ALT 28 Alkaline Phosphata se 101 Total Protein 4.9 L Albumin 1.9 L Globulin 3.0 09/18/20 11:44 WBC RBC Hgb Hct MCV MCH MCHC RDW Plt Count MPV Neut % (Auto) Lymph % (Auto) [place] % (Auto) Eos % (Auto) Baso % (Auto) Neut # (Auto) Lymph # (Auto) [place] # (Auto) Eos # (Auto) Baso # (Auto) Nucleated RBC % (a uto) Nucleated RBCs # Specimen Type Arterial Sample Site Radial, left ABG pH 7.45 ABG pCO2 36.4 ABG pO2 76.2 L ABG HCO3 25.0 ABG Base Excess 1.1 Dex Test Pos Hematocrit 38.0 L O2 Delivery Device Vent FiO2 65.0 PEEP 10.0 Major Assembly Lineman ID [place]ro Sodium Potassium Chloride Carbon Dioxide Anion Gap BUN Creatinine GFR Calculation Glucose Calculated Osmolal ity Calcium Total Bilirubin AST ALT Alkaline Phosphata se Total Protein Albumin Globulin Vitals: Last Vital Signs Temp 99.4 F 09/19/20 08:00 Pulse 102 H 09/19/20 08:00 Resp 21 H 09/19/20 08:00 BP 122/69 09/19/20 08:00 Pulse Ox 94 09/19/20 08:00 TS Medications Medications Home Medications propranolol 80 mg PO DAILY 09/05/20 [History Confirmed 09/05/20] Active Medications Acetaminophen (Acetaminophen 325 Mg Tablet) 650 mg PO Q6H PRN PRN Reason: MILD PAIN Last Admin: 09/13/20 21:17 Dose: 650 mg Documented by: Acetaminophen (Acetaminophen 650 Mg/20.3 Ml Udc) 650 mg PO Q6H PRN PRN Reason: MILD PAIN OR INCREASE TEMP Last Admin: 09/18/20 17:48 Dose: 650 mg Documented by: Acetylcysteine (Acetylcysteine 200 Mg/Ml Sdv 4 Ml) 200 mg INHALATION Q4H.RESPIRATORY PRN PRN Reason: SECRETIONS Last Admin: 09/12/20 21:30 Dose: 200 mg Documented by: Albuterol/Ipratropium (Ipratropium-Albuterol 3 Ml Neb) 3 ml INHALATION Q4H.RESPIRATORY VESNA Last Admin: 09/19/20 07:44 Dose: 3 ml Documented by: Albuterol/Ipratropium (Ipratropium-Albuterol 3 Ml Neb) 3 ml INHALATION Q4H.RESPIRATORY PRN PRN Reason: SHORTNESS OF BREATH Ascorbic Acid (Ascorbic Acid 500 Mg Tablet) 500 mg PO BID VESNA Last Admin: 09/19/20 08:08 Dose: 500 mg Documented by: Aspirin (Aspirin 81 Mg Ec Tablet) 81 mg PO DAILY VESNA Last Admin: 09/19/20 08:08 Dose: 81 mg Documented by: Atorvastatin Calcium (Atorvastatin 40 Mg Tablet) 40 mg PO BEDTIME VESNA Last Admin: 09/18/20 20:20 Dose: 40 mg Documented by: Budesonide (Budesonide 0.5 Mg/2 Ml Neb) 0.5 mg INHALATION BID.RESPIRATORY VESNA Last Admin: 09/19/20 07:44 Dose: 0.5 mg Documented by: Enoxaparin Sodium (Enoxaparin 100 Mg/Ml Syringe) 100 mg 1 mg/kg (100 mg) SUBCUT Q12H VESNA Last Admin: 09/19/20 08:08 Dose: 100 mg Documented by: Famotidine (Famotidine 20 Mg/2 Ml Inj) 20 mg IVP Q12H VESNA Last Admin: 09/19/20 01:54 Dose: 20 mg Documented by: Guaifenesin (Guaifenesin 600 Mg Tablet) 600 mg PO BID VESNA Last Admin: 09/19/20 08:08 Dose: 600 mg Documented by: Propofol (Diprivan) 1,000 mg in 100 mls @ 0 mls/hr IV .Q0M VESNA; Protocol Last Admin: 09/19/20 08:07 Dose: 45 mcg/kg/min, 26.3 mls/hr Documented by: Imipenem/Cilastatin Sodium 500 (mg/ Sodium Chloride) 100 mls @ 200 mls/hr IV Q6H VESNA; Protocol Last Infusion: 09/19/20 04:53 Dose: Infused Documented by: Vancomycin HCl 1,000 mg/ (Sodium Chloride) 250 mls @ 250 mls/hr IV Q12H VESNA Last Infusion: 09/18/20 21:21 Dose: Infused Documented by: Fentanyl 1,000 mcg/ Sodium (Chloride) 100 mls @ 0 mls/hr IV .Q0M [facility]; Protocol Last Admin: 09/19/20 04:09 Dose: 175 mcg/hr, 17.5 mls/hr Documented by: Esmolol HCl (Brevibloc Drip) 2,500 mg in 250 mls @ 0 mls/hr IV .Q0M [facility]; Protoc ol Last Titration: 09/18/20 19:07 Dose: Infused Documented by: Amiodarone HCl 900 mg/Dextrose/ IV Miscellaneous Supplies 518 mls @ 0 mls/hr IV .Q0M [facility]; Protocol Last Admin: 09/18/20 18:29 Dose: 1 mg/min, 34.5 mls/hr Documented by: Metoprolol Tartrate (Metoprolol Tartrate 1 Mg/1 Ml Sdv 5 Ml) 5 mg IV Q4H PRN PRN Reason: tachycardia Last Admin: 09/18/20 17:59 Dose: 5 mg Documented by: Metoprolol Tartrate (Metoprolol Tartrate 25 Mg Tablet) 25 mg OG-TUBE BID@0900,2100 [facility] Last Admin: 09/19/20 08:08 Dose: 25 mg Documented by: Midazolam HCl (Midazolam 1 Mg/Ml Inj 2 Ml) 2 mg IVP Q4H PRN PRN Reason: AGITATION Last Admin: 09/19/20 01:54 Dose: 2 mg Documented by: Zinc Gluconate (Zinc Gluconate 50 Mg Tablet) 50 mg PO DAILY@0800 [facility] Last Admin: 09/19/20 08:08 Dose: 50 mg Documented by: Discharge Plan Discharge Patient Disposition: er [facility] Condition: Stable Prescriptions: Discontinued propranolol 80 mg Capsule,Extended Release 24hr 80 mg PO DAILY RF: 0 Discharge Orders: Transfer Out of Facility (Order); Ordered 09/19/20 Ordered By: Eze Frances Transfer Attestations Time Spent in Transfer Care*: greater than 30 min Quality Metrics Clinical Quality Measures: During this hospital stay, did patient experience: Stroke Contraindication to Antithrombotic: Antithrombotic prescribed Contraindication to Anticoagulation: Anticoagulation prescribed Contraindication to Statin: Statin prescribed and None Coding Level of Care Code 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
--- NOTE | 2020-09-19 09:25 | PC.NUTR ---
NUTR TF RECOMMENDATIONS: Pulmocare started at 30 ml/hr. Suggest goal of 50 ml/hr providing 1800 kcal (82%), 76 g PRO (82%), and 942 ml fluid (43%)(%NEEDS). Suggest increasing TF by 10 ml Q6H as tolerated till goal rate is met. Additional 694 kcal from diprivan for total kcal of 2494 (113%). Suggest H2O flushes of 180 ml Q4H to approach fluid needs or per physician. Alternate TF RECOMMENDATIONS: Jevity with goal rate of 55 ml/hr providing 1584 kcal (72%), 73 g PRO (78%), and 1065 ml fluid (48%)(%NEEDS). Suggest starting TF at 25 ml/hr and increase by 10 ml Q6H as tolerated till goal rate is met. Additional 694 kcal from diprivan total 2278 (104%). Suggest H2O flushes of 150 ml Q4H to approach fluid needs or per physician.
[2020-09-19] MEDS: vancomycin 1,000 MG in sodium chloride 0.9% 250 ML 250 MG IV (09:30)
[2020-09-19 10:08] LABS: Vancomycin Trough 14.7 ug/mL (10-15)
--- NOTE | 2020-09-19 11:44 | PC.NURSE ---
Late note....Nurse started Nimbex per protocol with anticipation of proning patient at 10:15.
--- NOTE | 2020-09-19 11:45 | PC.NURSE ---
ICU staff proned patient. Datar and Respiratory therapy also at bedside. Padding placed at pressure points (shoulders, hips, knees). Prone pillow in place. Starting BIS and TOF monitoring. Nurse called the patient's , gisela, and let her know that proning therapy has started.
--- NOTE | 2020-09-19 12:26 | P.PN_ITS ---
Subjective Subjective: Interval history: The patient was seen and examined this morning. Currently he is on pressure underventilation of the option requirement has come down to 55%. Overall there has been improvement compared to a week ago in his overall oxygenation. The patient is currently sedated with propofol and fentanyl. He is on amiodarone for his A. fib currently in sinus rhythm. Not responsive to vocal commands. Chest x-ray obtained this morning revealed bilateral infiltrate no worsening. The patient is accepted for transfer to a long-term acute care hospital. Medications: Reviewed: Yes Vitals/I&O/Wt Last Vital Signs Temp 99.8 F H 09/19/20 12:00 Pulse 105 H 09/19/20 12:00 Resp 20 H 09/19/20 12:00 BP 117/64 09/19/20 12:00 Pulse Ox 96 09/19/20 12:00 09/18/20 09/19/20 09/19/20 22:59 06:59 14:59 Intake Total 753.137 / 1928.550 607.575 / 2536.125 147.865 / 147.865 Output Total 600 / 600 400 / 1000 120 / 120 Balance 153.137 / 1328.550 207.575 / 1536.125 27.865 / 27.865 Weight last 48 hrs Weight 205 lb 3.2 oz Weight 208 lb 1.862 oz Physical Exam Narrative: EXAM NARRATIVE: General: The patient is intubated and sedated Neck: No JVD Respiratory: Auscultation: Coarse breath sounds bilaterally, no crackles wheezing or rhonchi Cardiovascular: Regular rate and rhythm, S1-S2 present, no murmur, no peripheral edema. Abdomen: Soft, nondistended, positive bowel sound Skin: No rash Neuro: Patient is intubated and sedated not following any commands. Urinary Catheter Management^: Ivory: Cath Placed During This Visit: yes Reason for Continuing Indwelling Catheter: Accurate Measurement of Urinary Output in Critically Ill Patients Urinary Catheter Date of Insertion: 09/08/20 Urinary Catheter Time of Insertion: 11:48 Data : 09/19/20 04:01 09/19/20 04:01 Attestation for Other Data: I personally reviewed and interpreted the following: Other data: I have reviewed his laboratory, microbiologic and radiologic data. A&P Assessment and plan (1) ARDS (adult respiratory distress syndrome): The patient has ARDS secondary to COVID-19 pneumonia. It appears, that the oxygenation is slowly getting better. Unfortunately the patient has suffered multiple infarcts. Tracheostomy could be reasonable to provide the patient time to assess neurological recovery which is going to be crucial. Status: Acute (2) Pneumonia due to 2019-nCoV: The patient had received remdesivir, convalescent plasma. He also received dexamethasone for prolonged period of time. Currently he is broadly covered with imipenem and vancomycin. No evidence of secondary infection at this time. Status: Acute (3) CVA (cerebral vascular accident): Patient had multiple strokes. Significant weakness in the left side of the body. The patient had been accepted to a long-term acute care facility for further management. Status: Acute (4) Atrial fibrillation: The patient is on amiodarone currently. He is in sinus rhythm. Is anticoagulated with Lovenox. 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
--- NOTE | 2020-09-19 13:28 | PC.NURSE ---
RE[facility] [place], [place]. Nurse gave report to maldonado and arranged ground with [facility].
--- NOTE | 2020-09-19 13:29 | PC.NURSE ---
Transfer note: Kenyon loan review analyst and Olimpia EMT from [facility] arrived to transfer patient. Report given. propofol and fentanyl sent with patient for sedation. Current amount remaining in fentanyl bag is approximately 40 ml. 3 IV pumps sent with patient. Amiodarone Drip also sent.
--- NOTE | 2020-09-19 14:34 | PC.NURSE ---
nurse called [facility] and left a message for receiving nurse Camara. Patient is now en route via [facility].
--- NOTE | 2020-09-19 14:37 | PC.NURSE ---
Nurse called patient's dafne. Let her know that Alisa is on his way to [facility] in [facility] at this time.
--- NOTE | 2020-09-19 15:09 | PC.NURSE ---
belongings sent with patient included a pair of glasses, home medication (propranolol), and inhaler.
--- NOTE | 2020-09-19 15:15 | PC.NURSE ---
Late note: EMS personell arrived at approximately 1330, but didn't leave until approximately 1430. Nurse and RT were in room with EMS personell and pattern painter, troubleshooting the EMS vent setting issues.
== END 2020-09-19 14:30 | DRG 207 ==
LOC: ER 04:07 → MS 2A 04:08
PROVIDERS: Hospitalist; Internal Medicine; Internal Medicine Critical Care Medicine; Internal Medicine Pulmonary Disease; Student in an Organized Health Care Education/Training Program; Admitting Provider Internal Medicine; Emergency Provider Emergency Medicine; Visit Provider Internal Medicine
DX: U07.1 COVID-19 (principal); J12.82 Pneumonia due to coronavirus disease 2019; I63.442 Cerebral infarction due to embolism of left cerebellar artery; J96.01 Acute respiratory failure with hypoxia; I21.A1 Myocardial infarction type 2; G81.94 Hemiplegia, unspecified affecting left nondominant side; E87.1 Hypo-osmolality and hyponatremia; I48.91 Unspecified atrial fibrillation; R31.9 Hematuria, unspecified; D50.9 Iron deficiency anemia, unspecified; D69.6 Thrombocytopenia, unspecified; E86.0 Dehydration; I10 Essential (primary) hypertension; G25.0 Essential tremor; F41.9 Anxiety disorder, unspecified
CPT/HCPCS: 12345; 31500; 36415; 36416; 36430; 36592; 36600; 51702; 51798; 70450; 71045; 71275; 74177; 80048; 80051; 80053; 80061; 80202; 80500; 81001; 82330; 82436; 82550; 82607; 82728; 82803; 82805; 82962; 83010; 83540; 83550; 83605; 83615; 83735; 83880; 83930; 83935; 84100; 84133; 84145; 84295; 84300; 84443; 84484; 84550; 85025; 85049; 85362; 85378; 85384; 85610; 85730; 86140; 86403; 86900; 86927; 87040; 87070; 87081; 87086; 87205; 87305; 87449; 93005; 93306; 93308; 93880; 94002; 94003; 94640; 94660; 94669; 94799; 96372; 99282; A4570; C1751; C8924; J0153; J0282; J0743; J1100; J1170; J1200; J1630; J1650; J1940; J2020; J2060; J2250; J2270; J2405; J2543; J2704; J2765; J3010; J3370; J3465; J3490; J3535; J7030; J7050; J7060; J7608; J7626; J8540; P9017; P9047; Q0144; Q9956; Q9967